=== PATIENT | male | born 1965 | race Caucasian/White ===

== ENCOUNTER 2016-07-02 09:55 | Emergency (ER) | payer MEDICAID ==
--- NOTE | 2016-07-02 09:57 | EDPHY ---
H & P Time Seen by Provider: 07/02/16 09:56 HPI/ROS: CHIEF COMPLAINT: Weak dizzy and shaky HISTORY OF PRESENT ILLNESS: Patient slipped in a laundromat last night. He was picked up by EMS at the [facility] feeling weak and dizzy and shaky and worried he might have CO poisoning. He is a tobacco smoker. patient symptoms are moderate. Not associated with syncope or head injury or chest pain or shortness of breath. Started this morning. No known exposure to carbon monoxide. REVIEW OF SYSTEMS: Eye: no change in vision ENT: no sore throat Cardiac: no chest pain or syncope Pulmonary: no cough or SOB Abdomen: no vomiting, diarrhea, abdominal pain Musculoskeletal: no back pain, chronic neck pain unchanged Skin: no rash Neuro: no headache Constitutional: no fever : no urinary symptoms A comprehensive 10 point review of systems is otherwise negative aside from elements mentioned in the history of present illness. PAST MEDICAL HISTORY: Alcohol use, anxiety Social history: Alcohol and tobacco use General Appearance: Alert and conversant, cooperative. Eyes: No scleral icterus. ENT, Mouth: Normal mucous membranes. No tongue laceration or abrasion. Respiratory: Normal respiratory effort, breath sounds equal, lungs are clear to auscultation. Cardiovascular: Regular rate and rhythm. Gastrointestinal: Abdomen is soft and non tender. Neurological: Alert and oriented x3. Normally conversant. Face symmetric, normal movement and sensation in all extremities. Mildly shaky at rest. Skin: Warm and dry, no rashes. Musculoskeletal: No peripheral edema and no joint swelling. Psychiatric: Not agitated. Emergency Department course/MDM: Patient was hydrated with normal saline. His initial potassium was noted to be low at 2.8 and was given 60 meq orally and 2 g of IV magnesium. 1425: Repeat potassium is normal at 4.1. 1435: Patient re-examined and now is asymptomatic. With recent alcohol ingestion think that alcohol withdrawal is unlikely. He does not have symptoms of acute alcohol withdrawal or delirium tremens now. Constitutional: Initial Vital Signs Temperature (C) 36.3 C 07/02/16 10:11 Heart Rate 105 H 07/02/16 10:11 Respiratory Rate 18 07/02/16 10:11 Blood Pressure 138/87 H 07/02/16 10:11 O2 Sat (%) 92 07/02/16 10:11 O2 Delivery Mode Room Air O2 (L/minute) 2 Allergies/Adverse Reactions: No Known Allergies Allergy (Verified 01/13/15 07:24) Home Medications: Medication Instructions Recorded NK [No Known Home Meds] 01/13/15 Medical Decision Making - Diagnostics EKG Interpretation: 12-lead EKG interpreted by me; official reading is in trace master. My interpretation is sinus rhythm with incomplete right bundle branch block. 2nd EKG was performed for tachycardia.12-lead EKG interpreted by me; official reading is in trace master. My interpretation is sinus rhythm with late anterior RS transition. Differential Diagnosis: Differential considered including but not limited to CO poisoning, seizure, alcohol withdrawal, metabolic abnormality. - Data Points Laboratory Results: Laboratory Results 07/02/16 10:40 07/02/16 13:30 07/02/16 07/02/16 07/02/16 13:30 10:40 10:40 WBC RBC Hgb Hct MCV MCH MCHC RDW Plt Count MPV Neut % (Auto) Lymph % (Auto) Stone % (Auto) Eos % (Auto) Baso % (Auto) Nucleat RBC Rel Count Absolute Neuts (auto) Absolute Lymphs (auto) Absolute Monos (auto) Absolute Eos (auto) Absolute Basos (auto) Absolute Nucleated RBC Immature Gran % Immature Gran # Carboxyhemoglobin 4.9 % H % (0-1.5) Sodium Potassium 4.1 mEq/L mEq/L (3.5-5.2) Chloride Carbon Dioxide Anion Gap BUN Creatinine Estimated GFR Glucose Calcium Troponin I < 0.012 ng/mL ng/mL (0-0.034) Ethyl Alcohol 07/02/16 07/02/16 10:40 10:40 WBC 7.17 10^3/uL 10^3/uL (3.80-9.50) RBC 4.96 10^6/uL 10^6/uL (4.40-6.38) Hgb 17.6 g/dL H g/dL (13.7-17.5) Hct 51.6 % H % (40.0-51.0) MCV 104.0 fL H fL (81.5-99.8) MCH 35.5 pg H pg (27.9-34.1) MCHC 34.1 g/dL g/dL (32.4-36.7) RDW 15.6 % H % (11.5-15.2) Plt Count 120 10^3/uL L 10^3/uL (150-400) MPV 10.2 fL fL (8.7-11.7) Neut % (Auto) 84.8 % H % (39.3-74.2) Lymph % (Auto) 8.1 % L % (15.0-45.0) Stone % (Auto) 5.4 % % (4.5-13.0) Eos % (Auto) 0.0 % L % (0.6-7.6) Baso % (Auto) 1.0 % % (0.3-1.7) Nucleat RBC Rel Count 0.0 % % (0.0-0.2) Absolute Neuts (auto) 6.08 10^3/uL 10^3/uL (1.70-6.50) Absolute Lymphs (auto) 0.58 10^3/uL L 10^3/uL (1.00-3.00) Absolute Monos (auto) 0.39 10^3/uL 10^3/uL (0.30-0.80) Absolute Eos (auto) 0.00 10^3/uL L 10^3/uL (0.03-0.40) Absolute Basos (auto) 0.07 10^3/uL 10^3/uL (0.02-0.10) Absolute Nucleated RBC 0.00 10^3/uL 10^3/uL (0-0.01) Immature Gran % 0.7 % % (0.0-1.1) Immature Gran # 0.05 10^3/uL 10^3/uL (0.00-0.10) Carboxyhemoglobin Sodium 144 mEq/L mEq/L (134-144) Potassium 2.8 mEq/L L mEq/L (3.5-5.2) Chloride 96 mEq/L L mEq/L (97-110) Carbon Dioxide 22 mEq/l mEq/l (22-31) Anion Gap 26 mEq/L H mEq/L (8-16) BUN 7 mg/dL mg/dL (7-23) Creatinine 0.8 mg/dL mg/dL (0.7-1.3) Estimated GFR > 60 Glucose 124 mg/dL H mg/dL (70-100) Calcium 8.4 mg/dL L mg/dL (8.5-10.4) Troponin I Ethyl Alcohol 216 mg/dL H mg/dL (0-10) Medications Given: Discontinued Medications Sodium Chloride (Ns) 1,000 mls @ 0 mls/hr IV ONCE ONE PRN Reason: Wide Open Stop: 07/02/16 10:27 Last Admin: 07/02/16 10:49 Dose: 1,000 mls Magnesium Sulfate (Magnesium Sulf 2 Gm (Premix)) 50 mls @ 50 mls/hr IV EDNOW ONE Stop: 07/02/16 13:00 Last Admin: 07/02/16 12:21 Dose: 50 mls Sodium Chloride (Ns) 1,000 mls @ 0 mls/hr IV ONCE ONE PRN Reason: Wide Open Stop: 07/02/16 12:26 Last Admin: 07/02/16 12:44 Dose: 1,000 mls Potassium Chloride (Klor Packets) 60 meq PO EDNOW ONE Stop: 07/02/16 12:02 Last Admin: 07/02/16 12:21 Dose: 60 meq Departure - Departure Disposition: Home, Routine, Self-Care Clinical Impression: Hypokalemia Condition: Good Instructions: Hypokalemia (ED) Referrals: NONE *PRIMARY CARE P,. [Primary Care Provider] - As per Instructions [facility],. [Clinic] - As per Instructions
[2016-07-02 10:13] VITALS: TEMP 97.3
[2016-07-02] MEDS ORDERED: NS 1,000 ML IV ONE ×2 (10:26→12:25)
[2016-07-02 10:49] LABS: % IMMATURE GRANULYOCYTES 0.7 % (0.0-1.1); ABSOLUTE IMMATURE GRANULOCYTES 0.05 10^3/uL (0.00-0.10); ADD DIFF? NO; ADD MORPH? NO; ADD SCAN? NO; ATYPICAL LYMPHOCYTE FLAG 0 (0-99); FRAGMENT RBC FLAG 0 (0-99); HEMATOCRIT 51.6 % (40.0-51.0); HEMOGLOBIN 17.6 g/dL (13.7-17.5); LEFT SHIFT FLG 0 (0-99); LIPEMIA HEMOLYSIS FLAG 90 (0-99); MEAN CELL HEMOGLOBIN 35.5 pg (27.9-34.1); MEAN CELL HEMOGLOBIN CONCENTR. 34.1 g/dL (32.4-36.7); MEAN PLATELET VOLUME 10.2 fL (8.7-11.7); PLATELET CLUMPS FLAG 10 (0-99); PLATELET COUNT 120 10^3/uL (150-400); RED BLOOD CELL COUNT 4.96 10^6/uL (4.40-6.38); RED CELL DISTRIBUTION WIDTH 15.6 % (11.5-15.2)
--- NOTE | 2016-07-02 11:01 | CPEKG ---
Heart Rate: 87 RR Interval: 690 P-R Interval: 188 QRSD Interval: 108 QT Interval: 392 QTC Interval: 472 P Carey: 74 QRS Carey: 50 T Wave Carey: 65 EKG Severity - ABNORMAL ECG - EKG Impression: SINUS RHYTHM EKG Impression: INCOMPLETE RIGHT BUNDLE BRANCH BLOCK EKG Impression: BORDERLINE R WAVE PROGRESSION, ANTERIOR LEADS Electronically Signed By: Reji Galindo 02-Jul-2016 12:50:52
[2016-07-02 11:19] LABS: ANION GAP 26 mEq/L (8-16); CALCIUM 8.4 mg/dL (8.5-10.4); CARBON DIOXIDE 22 mEq/l (22-31); CHLORIDE 96 mEq/L (97-110); CREATININE 0.8 mg/dL (0.7-1.3); ETHANOL SERUM 216 mg/dL (0-10); GLOMERULAR FILTRATION RATE > 60; GLUCOSE 124 mg/dL (70-100); POTASSIUM 2.8 mEq/L (3.5-5.2); SODIUM 144 mEq/L (134-144)
[2016-07-02] MEDS ORDERED: POTASSIUM CL 20 MEQ PKT PO ONE (12:01)
[2016-07-02] MEDS ORDERED: MAGNESIUM SULF 2 GM/WATER 50 ML IV ONE (12:01)
--- NOTE | 2016-07-02 12:30 | CPEKG ---
Heart Rate: 96 RR Interval: 625 P-R Interval: 172 QRSD Interval: 86 QT Interval: 368 QTC Interval: 465 P [place]: 72 QRS [place]: 26 T Wave [place]: 57 EKG Severity - BORDERLINE ECG - EKG Impression: SINUS RHYTHM EKG Impression: BORDERLINE R WAVE PROGRESSION, ANTERIOR LEADS Electronically Signed By: Reji Galindo 02-Jul-2016 12:50:34
[2016-07-02 14:12] LABS: POTASSIUM 4.1 mEq/L (3.5-5.2)
[2016-07-02 14:24] VITALS: BP 119/87; PULSE 98; RESP 14; O2SAT 92
== END 2016-07-02 14:48 | disposition home or self-care (01) ==
LOC: EDUNIT#
DX: E87.6 Hypokalemia (principal); F17.200 Nicotine dependence, unspecified, uncomplicated
CPT/HCPCS: 96365; G0480

== ENCOUNTER 2017-04-19 08:47 | Inpatient (IN) | payer MEDICAID ==
[2017-04-19] MEDS ORDERED: NS 1,000 ML IV ONE ×2 (09:20→09:40)
--- NOTE | 2017-04-19 09:24 | EDPHY ---
General - History Smoking Status: Heavy smoker Narrative: 0935: Assessed patient and discussed care with JAIMEE Montero. Patient is in alcoholic ketoacidosis with a BGL of 38. Plan for PO and IV fluid administration and food intake and close monitoring of glucose and reassessments. Will recheck chemistries. 1005: 33.7C rectal temp, will admit for hypothermia and alcoholic ketoacidosis. (Jacob Dugan) CHIEF COMPLAINT: Flu-like symptoms HISTORY OF PRESENT ILLNESS: Patient presents by EMS with reports of flu-like symptoms. EMS reports of [employer] [employer] was called as he [place] the side of [place] He does not recall how he got there but also reports heavy alcohol ingestion. He says that he has had body aches, fevers, malaise and chills over the past few days. He feels "I've been sick." Associates with some cough. No neck pain or stiffness. No headache. No sore throat. No urinary complaints. No abdominal pain. No trauma or injury. He has no headache or neck pain at this time. Does admit to heavy alcohol use daily, at least 2 pints of rum. No other associated complaints or modifying factors. REVIEW OF SYSTEMS: Ten systems reviewed and are negative unless otherwise noted in the HPI PCP: [facility] SPECIALISTS: None PAST MEDICAL HISTORY: COPD, alcohol withdrawal seizures, alcoholism PAST SURGICAL HISTORY: Denies any recent surgeries SOCIAL HISTORY: Smoker. Daily alcohol use 2 pt of rum. Denies drug use. Homeless FAMILY HISTORY: Noncontributory EXAMINATION General Appearance: Alert, no distress, unkempt Head: normocephalic, atraumatic Eyes: Pupils equal and round, no conjunctival pallor or injection ENT, Mouth: Mucous membranes dry. Airway is patent. No erythema or edema. Neck: Normal inspection, supple, non-tender Respiratory: Mild rhonchi and crackles. No wheezing. No diminishment. No consolidation. Cardiovascular: Regular rate and rhythm. No murmur. Symmetric radial pulses 2+ . Symmetric DP pulses 2+. Gastrointestinal: Abdomen is soft and nontender. No tympany or distention. Back: non-tender, no bony abnormalities Neurological: GCS 15. Cranial nerves 2-12 grossly intact. A&O, nonfocal, strength symmetric with mild resting tremor. No rigors. Normal mentation Skin: Warm and dry, no rash. No petechiae or purpura Extremities: Nontender, no pedal edema. Symmetric range of motion. Psychiatric: Mood and affect normal DIFFERENTIAL DIAGNOSES: Including but not limited to influenza, dehydration, electrolyte disturbance, hypothermia MDM: 9:15 a.m. Body aches, malaise, possible fevers and alcoholic patient was found sitting on the side of the road in the cold. Unable to get a temperature on the patient but his vital signs are otherwise within normal limits. He is refusing a rectal temperature at this time. Will continue to keep checking his temperature. IV fluid has been ordered. Flu test ordered. Laboratory studies pending. He is awake and alert no acute distress. 9:40 a.m. Notified the patient's initial blood sugar was 38. He has been given multiple sources of sugar by mouth. He remains awake and alert no acute distress. I have also discussed laboratory studies with Dr. Dugan. He does exhibit alcoholic ketoacidosis. Providing IV fluid resuscitation in conjunction with close glucose monitoring. Recheck chemistry after hydration. 9:55 a.m. Chest x-ray is unremarkable. Patient re-evaluated. 10:00 a.m. Patient has finally consented to a rectal temperature. I performed this myself in his core temperature is 33.7. I checked this twice. Dr. Dugan has been notified. At this point the bear hugger as been place. Will proceed with admission for hypothermia and alcoholic ketoacidosis. 10:10 a.m. Case discussed with hospitalist Tiffani Kilpatrick. Patient will be admitted to a step-down unit to Dr. Gibbs for alcoholic ketoacidosis and hypothermia. We are administering thiamine and folate. Were rechecking his blood sugar monitoring closely. Bear hugger is in place and warm IV fluids infusing. He continues to mentate appropriately and is awake and alert. He does have some rigors at this time nor monitoring closely. He is admitted in stable condition. We have initiated the ED alcohol withdrawal CIWA and Ativan protocol. SUPERVISION: Patient was evaluated and examined in conjunction with my secondary supervising physician as documented. We have both examined the patient. (Brian Montero) - Diagnostics Imaging Results: Imaging Impressions Chest X-Ray 04/19/17 09:20 Impression: No pneumonia. - Objective Vital Signs: Initial Vital Signs Heart Rate 85 04/19/17 08:47 Respiratory Rate 16 04/19/17 08:47 Blood Pressure 105/70 04/19/17 08:47 O2 Sat (%) 92 04/19/17 08:47 O2 Delivery Mode Nasal Cannula O2 (L/minute) 2 Allergies/Adverse Reactions: No Known Allergies Allergy (Verified 01/13/15 07:24) Home Medications: Medication Instructions Recorded Albuterol [Proventil Inhaler HFA 1 - 2 puffs IH Q4H PRN 04/19/17 (*)] Fluticasone/Salmeter 250/50Mcg 1 puffs IH BID 04/19/17 [Advair 250/50 (*)] Laboratory Results: Laboratory Results 04/19/17 08:53 04/19/17 08:53 04/19/17 04/19/17 04/19/17 10:00 08:53 08:53 WBC 7.93 10^3/uL 10^3/uL (3.80-9.50) RBC 5.34 10^6/uL 10^6/uL (4.40-6.38) Hgb 19.5 g/dL H g/dL (13.7-17.5) Hct 56.7 % H % (40.0-51.0) MCV 106.2 fL H fL (81.5-99.8) MCH 36.5 pg H pg (27.9-34.1) MCHC 34.4 g/dL g/dL (32.4-36.7) RDW 13.5 % % (11.5-15.2) Plt Count 462 10^3/uL H 10^3/uL (150-400) MPV 8.7 fL fL (8.7-11.7) Neut % (Auto) 62.7 % % (39.3-74.2) Lymph % (Auto) 29.1 % % (15.0-45.0) [place] % (Auto) 5.4 % % (4.5-13.0) Eos % (Auto) 0.1 % L % (0.6-7.6) Baso % (Auto) 1.8 % H % (0.3-1.7) Nucleat RBC Rel Count 0.0 % % (0.0-0.2) Absolute Neuts (auto) 4.97 10^3/uL 10^3/uL (1.70-6.50) Absolute Lymphs (auto) 2.31 10^3/uL 10^3/uL (1.00-3.00) Absolute Monos (auto) 0.43 10^3/uL 10^3/uL (0.30-0.80) Absolute Eos (auto) 0.01 10^3/uL L 10^3/uL (0.03-0.40) Absolute Basos (auto) 0.14 10^3/uL H 10^3/uL (0.02-0.10) Absolute Nucleated RBC 0.00 10^3/uL 10^3/uL (0-0.01) Immature Gran % 0.9 % % (0.0-1.1) Immature Gran # 0.07 10^3/uL 10^3/uL (0.00-0.10) Sodium Potassium Chloride Carbon Dioxide Anion Gap BUN Creatinine Estimated GFR Glucose POC Glucose 58 mg/dL L mg/dL (70-100) Calcium Total Bilirubin Conjugated Bilirubin Unconjugated Bilirubin AST ALT Alkaline Phosphatase Total Protein Albumin Lipase Nasal Influenza A PCR NEGATIVE FOR FLU A (NEGATIVE) Nasal Influenza B PCR NEGATIVE FOR FLU B (NEGATIVE) Ethyl Alcohol 04/19/17 08:53 WBC RBC Hgb Hct MCV MCH MCHC RDW Plt Count MPV Neut % (Auto) Lymph % (Auto) [place] % (Auto) Eos % (Auto) Baso % (Auto) Nucleat RBC Rel Count Absolute Neuts (auto) Absolute Lymphs (auto) Absolute Monos (auto) Absolute Eos (auto) Absolute Basos (auto) Absolute Nucleated RBC Immature Gran % Immature Gran # Sodium 147 mEq/L H mEq/L (135-145) Potassium 4.7 mEq/L mEq/L (3.5-5.2) Chloride 97 mEq/L mEq/L (97-110) Carbon Dioxide 26 mEq/l mEq/l (22-31) Anion Gap 24 mEq/L H mEq/L (8-16) BUN 7 mg/dL mg/dL (7-23) Creatinine 0.7 mg/dL mg/dL (0.7-1.3) Estimated GFR > 60 Glucose 38 mg/dL L* mg/dL (70-100) POC Glucose Calcium 9.2 mg/dL mg/dL (8.5-10.4) Total Bilirubin 1.4 mg/dL mg/dL (0.1-1.4) Conjugated Bilirubin 1.0 mg/dL H mg/dL (0.0-0.5) Unconjugated Bilirubin 0.4 mg/dL mg/dL (0.0-1.1) AST 127 IU/L H IU/L (17-59) ALT 62 IU/L IU/L (21-72) Alkaline Phosphatase 234 IU/L H IU/L (38-126) Total Protein 8.3 g/dL H g/dL (6.3-8.2) Albumin 4.4 g/dL g/dL (3.5-5.0) Lipase 89 IU/L IU/L (23-300) Nasal Influenza A PCR Nasal Influenza B PCR Ethyl Alcohol 262 mg/dL H mg/dL (0-10) Medications Given: Dextrose/Sodium Chloride (D5w 1/2 Ns) 1,000 mls @ 75 mls/hr IV CONT EDINSON Stop: 10/16/17 12:14 Last Admin: 04/19/17 12:25 Dose: 1,000 mls Thiamine HCl 500 mg/ Sodium (Chloride) 255 mls @ 255 mls/hr IV DAILY EDINSON Stop: 04/20/17 09:59 Last Admin: 04/19/17 12:24 Dose: 255 mls Magnesium Sulfate (Magnesium Sulf 2 Gm (Premix)) 50 mls @ 50 mls/hr IV ONCE ONE Stop: 04/19/17 16:36 Last Admin: 04/19/17 15:42 Dose: 50 mls Discontinued Medications Folic Acid (Folic Acid) 1 mg PO EDNOW ONE Stop: 04/19/17 10:10 Last Admin: 04/19/17 10:22 Dose: 1 mg Sodium Chloride (Ns) 1,000 mls @ 0 mls/hr IV EDNOW ONE; Wide Open PRN Reason: Protocol Stop: 04/19/17 09:21 Last Admin: 04/19/17 09:25 Dose: 1,000 mls Sodium Chloride (Ns) 1,000 mls @ 0 mls/hr IV EDNOW ONE; Wide Open PRN Reason: Protocol Stop: 04/19/17 09:41 Last Admin: 04/19/17 09:46 Dose: 1,000 mls Lorazepam (Ativan Injection) 0 mg IVP Q1H PRN; Protocol PRN Reason: Alcohol Withdrawal w/IV access Stop: 04/19/17 22:31 Last Admin: 04/19/17 10:54 Dose: 2 mg Thiamine HCl (Vitamin B-1) 100 mg PO EDNOW ONE Stop: 04/19/17 10:10 Last Admin: 04/19/17 10:22 Dose: 100 mg Point of Care Test Results: 04/19/17 10:00 POC Glucose 58 L Departure - Departure Disposition: [facility] Inpatient Acute Clinical Impression: Alcoholic ketoacidosis Hypothermia Qualifiers: Encounter type: initial encounter Qualified Code(s): T68.XXXA - Hypothermia, initial encounter Condition: Good
[2017-04-19 09:27] LABS: PLATELET COUNT 462 10^3/uL (150-400)
[2017-04-19] MEDS ORDERED: THIAMINE HCL 100 MG TAB PO ONE (10:09)
[2017-04-19] MEDS ORDERED: FOLIC ACID 1 MG TAB PO ONE (10:09)
[2017-04-19] MEDS ORDERED: LORazepam 1 MG TAB PO PRN ×2 (10:31→12:04)
[2017-04-19] MEDS ORDERED: LORazepam 2 MG/ML INJ IVP PRN (10:31)
[2017-04-19] MEDS ORDERED: LORazepam 2 MG/ML INJ ONE (10:53)
--- NOTE | 2017-04-19 11:03 | ASMTLACE ---
MARGARETTE Acuity / Level of Answers: Yes Care: Did the patient have an inpatient admission? Comorbidities - select Answers: Chronic pulmonary disease all that apply Social determinants Answers: History of substance abuse (ETOH, street drugs, prescription drugs, etc.) Homelessness (street, residential) Score: 11 Date Signed: 04/19/2017 11:02 AM Electronically Signed By:Pamela Guthrie RN
[2017-04-19] MEDS ORDERED: ACETAMINOPHEN 325 MG TAB PO PRN (12:02)
[2017-04-19] MEDS: THIAMINE HCL 500 MG in NS 250 ML IV SCH (12:24)
[2017-04-19] MEDS: D5W 1/2 NS 1,000 ML IV SCH (12:25)
--- NOTE | 2017-04-19 12:39 | CPEKG ---
Heart Rate: 102 RR Interval: 588 P-R Interval: 152 QRSD Interval: 80 QT Interval: 372 QTC Interval: 485 P [place]: 78 QRS [place]: 35 T Wave [place]: 72 EKG Severity - BORDERLINE ECG - EKG Impression: SINUS TACHYCARDIA EKG Impression: BORDERLINE R WAVE PROGRESSION, ANTERIOR LEADS EKG Impression: BORDERLINE PROLONGED QT INTERVAL Electronically Signed By: Fly Polanco 20-Apr-2017 08:26:34
[2017-04-19] MEDS ORDERED: PROTOCOL MAGNESIUM 1 DOSE IV PRN (14:43)
[2017-04-19] MEDS ORDERED: PROTOCOL K PHOSPHATE 1 DOSE IV PRN (14:43)
[2017-04-19] MEDS ORDERED: PROTOCOL POTASSIUM 1 DOSE MISC PRN (14:43)
[2017-04-19 15:18] LABS: INR 1.03 (0.83-1.16); PROTIME(PATIENT) 13.7 SEC (12.0-15.0)
[2017-04-19] MEDS ORDERED: MAGNESIUM SULF 2 GM/WATER 50 ML IV ONE (15:37)
--- NOTE | 2017-04-19 16:02 | GCON ---
[f rep st] CONSULTATION PULMONARY CRITICAL CARE CONSULTATION DATE OF CONSULTATION: 04/19/2017 REASON FOR CONSULTATION: Alcohol withdrawal. HISTORY: The patient is a homeless chronic alcoholic. He [place] and brought to the emergency department. On admission, he said he felt sick and reported having had fevers, chills, and aches over the last several days associated with a dry cough. He has continued to drink heavily, 2 pints of rum per day. He also smokes a pack of cigarettes per day. In the emergency department, he was found to have a blood alcohol level of 262. Glucose was l ow at 38. He was given multiple sugar-containing items orally. He was given intravenous fluids. Ch est x-ray was obtained, which showed no evidence of pneumonia. He was not febrile. He did have a po sitive anion gap, which was felt to be secondary to alcoholic ketoacidosis; however, ketones were not obtained. He was not started on antibiotics. He was given thiamin and placed on the CIWA protocol. Subsequently, Precedex was started. /[id number]/MODL
--- NOTE | 2017-04-19 16:24 | PDGENHP ---
History and Physical History and Physical: CC: Weakness and flu-like symptoms HISTORY: This patient was brought in by [employer] police after being found asleep in poorly responsive in front of a bus stop on the sidewalk. On arrival here the patient was initially awake and able to give some history and did complain of some flu-like symptoms but the history is quite limited. He had symptoms suggestive of significant alcohol withdrawal was given 2 mg of Ativan in the emergency room. At the time I am seeing the patient is quite sedated and barely arousable from the Ativan. I was unable to get any other history in terms of any acute illness or symptoms or review of systems. In the ER the patient was noted to be hypothermic and was treated with a Bear Hugger warming system with some good improvement in his core temperature. ROS: A comprehensive 10 system review is attempted and revealed no other significant findings but is severely limited by the patient's inability to participate PAST MEDICAL HISTORY: Based on the fact that we know the patient has some inhaled bronchodilators and is a smoker he appears to have a history of COPD Known tobacco and alcohol abuse Homelessness FAMILY MEDICAL HISTORY: Unknown, no information available SOCIAL HISTORY: Homeless, currently reportedly using daily alcohol and tobacco but no street drugs No other information available MEDICATIONS: The patients list has been reconciled by our clinical pharmacist in the EMR. I have reviewed the list and ordered appropriate medicines. 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 Aide: Sinus Examination: General: Quite sedated, snoring, barely arousable for a few seconds, does not interact verbally with me at this time or follow commands but does make eye contact before falling back to sleep Skin: warm, dry, good color overall; the left hand is quite erythematous on the dorsal aspect from the wrist down to the dorsal part of the fingers without heat swelling abscess or open wounds, this is suggestive in the circumstances of probable thermal injury without any blistering or signs of necrosis or desquamation at this time; there is no sign of thermal injury or other skin illness and other parts of his body at this time HEENT: normal with limited exam due to lack of participation Neck: no mass or jvd Resps: relaxed Lungs: Snoring loudly but otherwise clear breath sounds Heart: regular, no murmur Abdomen: soft, nondistended, +BS, no mass Lower Extremities: no edema, warm; No Bleeding or bruising Neurologic: normal speech/language, 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, no focal weakness IV site: looks normal LABORATORY DATA: Metabolic acidosis with a elevated anion gap and ketones present which in the setting of hypoglycemia and a significantly elevated alcohol level Otherwise chemistries fairly unremarkable On CBC he has remarkable macrocytosis and erythrocytosis which have been seen on previous blood work on prior ER visits here Influenza tests negative for a and B by PCR RADIOLOGY STUDIES: Chest x-ray single view was done in the ER today, I looked at the images which in my reading show evidence of hyperexpansion and probably some scarring at the right base but no evidence of acute infection or heart failure 12 LEAD EK lead EKG done in the ER, I reviewed the tracing which shows a sinus tachycardia 102 beats per minute with no other concerning abnormalities ASSESSMENT: -acute alcohol withdrawal, started on benzodiazepine here in the ER; patient, currently sedated from Ativan given in the ER with some tachycardia but no other vital sign changes; -the degree of alcohol withdrawal that he showing here with an alcohol level as high as his presenting level in the ER suggests impending severe withdrawal is quite likely -hypothermia from exposure, currently in significantly improved after warming therapy in the ER -mild thermal injury to the skin on the dorsum of his left hand and fingers without current evidence of any desquamation blistering or necrosis -alcoholic ketoacidosis, mild -acute alcohol intoxication, alcoholism, reported history of alcohol withdrawal seizures; at high risk here for seizures and other complications of withdrawal as well as nutritional complications -COPD with ongoing tobacco abuse, no evidence of acute decompensation at this time -homelessness PLANS: -inpatient admission to ICU -WA protocol with treatment protocols ordered; included will be some scheduled benzodiazepine doses to for seizure prevention -thiamin replacement has been started -follow his temperatures closely and make sure his hypothermia is adequately treated -for monitor and manage electrolyte abnormalities closely -dextrose infusion has been instituted and ongoing for his alcoholic ketoacidosis will follow his acid-base balance and electrolytes closely for this -will monitor the skin changes on his left hand very closely, consider consultation of wound care and surgery if any significant worsening -continue bronchodilators -once he is awake and cogent enough will engage in alcohol counseling and determine his willingness to engage in that further plans accordingly -social work consult I have reviewed the patient's case in detail with Dr. Irwin Alston I have reviewed the patient's past medical records as part of this assessment, including previous ER visit records and laboratory data
--- NOTE | 2017-04-19 17:04 | PDMN ---
Medical Necessity Medical necessity: C/M review: est. > 2 MN LOS for erval and [place] of acute alcohol withdrawal, hypothermia from exposure, mild alcoholic ketoacidosis, acute alcohol intoxication requiring IV Ativan in ED, IV Thiamine, planned Case Management consult, ongoing IV fluids, bronchodilators, cardiac monitoring, pulse oximetry, supplemental O2, CIWA protocol, vital sign and skin changed left hand close monitoring, seizure precautions, comorbid patient brought into ED by [employer] police after found asleep in poorly responsive condition in front of a bus stop on the sidewalk,. alcohol and tobacco abuse, COPD, history of alcohol withdrawal seizures, homelessness per H/P.
[2017-04-19] MEDS: LORazepam 2 MG/ML INJ IVP PRN (18:20)
[2017-04-19] MEDS: ALBUTEROL 60 PUFFS/8 GM MDI IH PRN (21:15)
[2017-04-19] MEDS: FLUTICASONE/SALMETER 250/50MCG DISKUS IH SCH (21:16)
--- NOTE | 2017-04-19 22:57 | GCON ---
[f rep st] CONSULTATION DATE OF CONSULTATION: 04/19/2017 ADDENDUM: HISTORY OF PRESENT ILLNESS: The patient does have a history of lung disease secondary to his smoking . List of medications includes albuterol and Advair. He is apparently followed at the [facility]. 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 FAMILY HISTORY: Noncontributory/negative. REVIEW OF SYSTEMS: Difficult to obtain at this time. The patient denies heart disease. He says he is continuing to have symptoms of alcohol withdrawal and is uncomfortable and does not want to be int erviewed. On review of previous records, he has been to the emergency room for various reasons over the past 6 or 7 years. These have included alcohol withdrawal. He has not been hospitalized. PHYSICAL EXAMINATION: GENERAL: Reveals a gentleman who is tremulous. Face and hands are erythemato us and dry. He is arousable and responsive. VITAL SIGNS: Blood pressure is 110/65, heart rate 100 with sinus rhythm on the monitor. He is afebrile. Respiratory rate is 16. He is on 4 L of oxygen w ith saturations of 94%. HEENT: Remarkable for dry mucous membranes. There is no scleral icterus. There is no lymphadenopathy or thyromegaly, no jugular venous distention. CHEST: Clear anteriorly. Breath sounds are diminished at the bases. There are few nonspecific bibasilar rales. With coughin g there are no rhonchi, only mild central congestion. With forced exhalation there are some scattere d wheezes. He is not tight. HEART: The heart is borderline tachycardic. There is a soft systolic murmur, no gallops. ABDOMEN: Soft and nontender. The liver appears to be enlarged with mild tender ness. EXTREMITIES: Remarkable for multiple tattoos. The hands and feet are somewhat erythematous. SKIN: Dry. There are no rashes, no active lesions or evidence of cellulitis. NEUROLOGIC: Nonfoca l. He is oriented x2. DATA BASE: Chest x-ray on admission was unremarkable for infiltrates or evidence of pneumonia. The lungs are not particularly hyperinflated. Some old rib fractures are noted. Cardiac silhouette is n ormal. LABORATORY DATA: White blood cell count 7900, hematocrit on admission 56.7, MCV 106, platelets 462,0 00. Sodium was 147, potassium 4.7, CO2 26, and anion gap 24. BUN is 7 with a creatinine of 0.7. In itial glucose was 38, came up to 99 after sugar containing oral intake. Total bilirubin is 1.4, AST elevated at 127, ALT 62. Total protein. 8.4. Lipase was normal. Influenza A/B was negative by PCR. Blood alcohol on admission was 262. ASSESSMENT: 1. Alcohol withdrawal secondary to acute on chronic alcohol abuse: He is on the CIWA protocol, on P recedex as well as scheduled Ativan. He is getting thiamine and multivitamins. 2. Tobacco abuse, likely chronic obstructive pulmonary disease: There is no evidence of pneumonia o r active bronchitis at this time. He does not seem to have a viral illness. Influenza was negative. His symptoms of feeling sick on admission may have been related more to chronic alcoholism as oppos ed to acute illness? 3. Metabolic: Mild anion gap presumably secondary to alcoholic ketoacidosis. This likely will impr ove with intravenous fluids. He does have evidence of volume depletion on admission clinically as we ll as based on his high hematocrit. 4. Prophylaxis: He is on enoxaparin. Oral famotidine will be added. 5. Polycythemia: Hematocrit is borderline high likely secondary to volume depletion. Smoking may b e playing a role as well. This will be followed. PLAN AND RECOMMENDATIONS: The patient will be kept in intensive care unit on the CIWA protocol. Pre cedex will be continued along with scheduled Ativan. Electrolytes and CBC will all be followed. He will be placed on electrolyte protocols. Intravenous fluids will be continued. Further plans and recommendations will be made based on his progress over the next 12-24 hours. /[id number]/MODL
[2017-04-20] MEDS: LORazepam 2 MG/ML INJ IVP PRN ×3 (01:28→22:13)
[2017-04-20 05:37] LABS: PLATELET COUNT 290 10^3/uL (150-400)
[2017-04-20] MEDS: FLUTICASONE/SALMETER 250/50MCG DISKUS IH SCH ×2 (08:46→19:54)
[2017-04-20] MEDS: ALBUTEROL 60 PUFFS/8 GM MDI IH PRN (08:47)
[2017-04-20] MEDS ORDERED: THIAMINE HCL 500 MG in NS 250 ML IV SCH (09:00)
[2017-04-20] MEDS ORDERED: FOLIC ACID 1 MG TAB PO SCH (09:00)
[2017-04-20] MEDS: THIAMINE HCL 500 MG in NS 250 ML IV SCH (09:31)
[2017-04-20] MEDS: ENOXAPARIN 40 MG/0.4 ML SYR SC SCH (09:31)
[2017-04-20] MEDS: MULTIVITAMINS 1 EACH TAB PO SCH (09:31)
--- NOTE | 2017-04-20 09:37 | HOSPPROG ---
Hospitalist Progress Note Assessment/Plan: DIAGNOSES: -acute alcohol withdrawal, started on benzodiazepine here in the ER; patient, currently sedated from Ativan given in the ER with some tachycardia but no other vital sign changes; -the degree of alcohol withdrawal that he showing here with an alcohol level as high as his presenting level in the ER suggests impending severe withdrawal is quite likely -hypothermia from exposure, currently in significantly improved after warming therapy in the ER -mild thermal injury to the skin on the dorsum of his left hand and fingers without current evidence of any desquamation blistering or necrosis -alcoholic ketoacidosis, mild -acute alcohol intoxication, alcoholism, reported history of alcohol withdrawal seizures; at high risk here for seizures and other complications of withdrawal as well as nutritional complications -COPD with ongoing tobacco abuse, no evidence of acute decompensation at this time -homelessness I had a long discussion with the patient about all the above today as well as the risks for loss of limb and loss of life related to this. Talked about his drinking and at this point he does not feel it will be possible for him to stop drinking nor does he feel like he wants to engage in that now. We did review that he will need to trying keep himself former, and to keep himself well hydrated and get enough calories to avoid alcohol ketoacidosis issues in the future. He understands this and will try an make changes if he can. We talked about the importance of trying to get him into the warming shelters during the winter months oral spends his [place] in a warmer climate. At this time will need to start giving him alcohol as he is not going to quit drinking. Greater than 25 min spent in this particular discussion with him today and with long term care social worker at the bedside as well. PLANS: -begin alcohol on a scheduled basis at this time here -patient will need at least another day here in the hospital for further recovery -continue IV hydration at this point -physical occupational therapy -contrasts for to med surge at this time -continue DVT prophylaxis, thiamin replacement, monitor electrolytes -will begin to add hydrating lotions to his hand on the left at this time SUBJECTIVE: Feels weak and tired yet, somewhat shaky like he is beginning to start withdrawal Does not yet feel anxious or confused No pain in left hand OBJECTIVE Vitals reviewed: Stable temperatures vital signs otherwise Oncology Social Work, my review: Sinus rhythm Exam: alert oriented not really anxious she had at this time, does have a very mild tremor skin warm dry color ok; the erythema on his left hand and fingers has now resolved but he has marked good drying and cracking of the skin there, nothing that looks like it will blister or necrosis but he will peel the superficial skin diffusely on the hand and fingers resps not labored lungs clear BSs heart regular abd soft nondistended nontender, bowel sounds present limbs warm, no edema iv site ok Laboratory data: His acidosis has resolved Mild elevation of liver enzymes and bilirubin as expected with alcohol Erythrocytosis has resolved with hydration, does have persisting macrocytosis Objective: Vital Signs Temp Pulse Resp BP Pulse Ox 36.6 C 94 18 133/83 H 92 04/20/17 07:38 04/20/17 08:30 04/20/17 08:30 04/20/17 07:38 04/20/17 08:30 Laboratory Results 04/20/17 05:25 04/20/17 05:25 04/19/17 04/20/17 04/21/17 06:59 06:59 06:59 Intake Total 4181 Output Total 1050 900 Balance 3131 -900 PT 13.7 SEC (12.0-15.0) 04/19/17 14:55 INR 1.03 (0.83-1.16) 04/19/17 14:55 - Time Spent With Patient Time Spent with Patient: greater than 35 minutes Time Spent with Patient: Greater than 35 minutes spent on this patients care, greater than 50% of time spent counseling, educating, and coordinating care regarding the above mentioned plan. ICD10 Worksheet Patient Problems: Problems Problem Status Onset Alcoholic ketoacidosis Acute Hypothermia Acute
[2017-04-20] MEDS ORDERED: FLU VACC QS 2017-18 (3YR+)/PF 0.5 ML SYR (FLUARIX QUAD) IM ONE (09:58)
[2017-04-20] MEDS ORDERED: PNEUMOCOCCAL 0.5ML VACCINE VIAL IM ONE (09:58)
[2017-04-20] MEDS ORDERED: MAGNESIUM SULF 1 GM/DEXTROSE 100 ML IV ONE (10:09)
[2017-04-20] MEDS: VODKA 50 ML BOTTLE PO SCH ×3 (11:06→22:11)
--- NOTE | 2017-04-20 11:52 | PDINTPN ---
Director Of Instruction Progress Note Assessment/Plan: Assessment: Alcohol withdrawal. On CIWA - score approximately 14. No intention of quitting. Vodka to be given. He will remain on as needed benzodiazepines. Continue thiamin. History of tobacco abuse, ongoing. Likely COPD. On bronchodilators. Oxygen requirements remain high: On 6 L. For repeat x-ray today. Metabolic: On replacement protocols. Prophylaxis: On enoxaparin. No GI prophylaxis indicated, eating. Disposition: He is homeless. Plan: Continue CIWA. Add vodka. Follow laboratory. Recheck chest x-ray today. Change p.r.n. albuterol to scheduled duo nebs. Continue Advair. Consider a brief steroid trial. Can transfer to a medical-surgical bed. 25 min of critical care time spent directly with the patient. Discussed with hospitalist and the ICU multi disciplinary team. Subjective: Feels better overall. Still tremulous. Feels like he is continuing to withdraw. Admits he has no intention on quitting alcohol at this time. He does continue to feel some shortness of breath, pulmonary congestion. Objective: Vital Signs Temp Pulse Resp BP Pulse Ox 36.6 C 102 H 21 H 127/87 H 92 04/20/17 07:38 04/20/17 10:00 04/20/17 10:00 04/20/17 10:00 04/20/17 10:00 Laboratory Results 04/20/17 05:25 04/20/17 05:25 04/19/17 04/20/17 04/21/17 05:59 05:59 05:59 Intake Total 4181 Output Total 1050 1300 Balance 3131 -1300 PT 13.7 SEC (12.0-15.0) 04/19/17 14:55 INR 1.03 (0.83-1.16) 04/19/17 14:55 Laboratory Tests 04/20/17 05:25 Calcium 7.3 L Phosphorus 2.4 L Magnesium 1.8 Total Bilirubin 1.9 H AST 79 H ALT 45 Albumin 2.8 L D CXR: Pending. Physical Exam - Physical Exam General Appearance: alert, no apparent distress, other (Tremulous) EENT: PERRL/EOMI, other (Nasal cannula in place at 6 L: Saturations 92%.), No scleral icterus (R), No scleral icterus (L) Neck: normal inspection (No JVD), No lymphadenopathy (R), No lymphadenopathy (L) Respiratory: lungs clear (Anteriorly), decreased breath sounds (At the bases), rales (Few nonspecific rales at the bases), wheezing (Minimal expiratory wheezing, probably secondary to mucus as opposed to bronchospasm.), No rhonchi ( Mild central congestion with cough) Cardiac/Chest: regular rate, rhythm (Tachycardic at times.) Abdomen: normal bowel sounds, non-tender, soft Male Genitalia: other (Using urinal, good urine output.) Skin: normal color, warm/dry, other (Skin quite dry, especially over exposed areas: Hands, face, etc) Extremities: No pedal edema Neuro/Psych: no motor/sensory deficits, oriented x 3, cognition abnormalities, other (Tremor present) ICD10 Worksheet Patient Problems: Problems Problem Status Onset Alcoholic ketoacidosis Acute Hypothermia Acute
[2017-04-20] MEDS: IPRATROPIUM/ALBUTEROL 3 ML DEYVIAL IH SCH ×3 (12:18→19:50)
--- NOTE | 2017-04-20 15:24 | ASMTCMCOM ---
CM Note CM Note Notes: Homeless pt w hypothermia and alcohol ketoacidosis brought in by PD. Pt expresses no interest in quitting alcohol; will get alcohol in hospital. No therapies ordered at this time. CIWA 16 so CM does not meet w pt today for resources. CM to follow. Date Signed: 04/20/2017 03:23 PM Electronically Signed By:ISABEL Irvin
[2017-04-20] MEDS: D5W 1/2 NS 1,000 ML IV SCH (15:59)
[2017-04-21] MEDS: LORazepam 2 MG/ML INJ IVP PRN (01:24)
[2017-04-21] MEDS: D5W 1/2 NS 1,000 ML IV SCH (04:18)
[2017-04-21] MEDS: IPRATROPIUM/ALBUTEROL 3 ML DEYVIAL IH SCH (05:43)
[2017-04-21] MEDS: FLUTICASONE/SALMETER 250/50MCG DISKUS IH SCH (05:49)
[2017-04-21] MEDS ORDERED: MAGNESIUM SULF 1 GM/DEXTROSE 100 ML IV ONE (06:13)
[2017-04-21 07:55] VITALS: BP 125/83; PULSE 106; RESP 22; TEMP 99.1; O2SAT 92
[2017-04-21] MEDS: MULTIVITAMINS 1 EACH TAB PO SCH (08:05)
[2017-04-21] MEDS: VODKA 50 ML BOTTLE PO SCH (08:06)
[2017-04-21] MEDS: ENOXAPARIN 40 MG/0.4 ML SYR SC SCH (08:06)
[2017-04-21] MEDS ORDERED: THIAMINE HCL 100 MG TAB PO SCH (09:00)
--- NOTE | 2017-04-21 11:28 | PDDCSUM ---
Discharge Summary Discharge Summary: DISCHARGE DIAGNOSES: -acute alcoholic ketoacidosis -acute alcohol withdrawal -mild frostbite injury to left hand, resolved nicely -hypothermia from exposure -ongoing chronic alcoholism, unwilling to engage in quitting alcohol at this time -suspected nutritional deficiencies including thiamin -homeless this CONSULTANTS: Dr. Irwin Alston of Critical Care Medicine [facility] COURSE SUMMARY: This patient who is an alcoholic and homeless, became severely weak and and laid down on the sidewalk to take a nap and was found later by passerby who called police as the patient would not get up or rales. On arrival here he was hypothermic with a temperature 33 degrees, and had some mild thermal injury to the dorsum of his left hand with erythema but with no necrosis or blistering. He had evidence of alcoholic ketoacidosis and was beginning to have some alcohol withdrawal despite an alcohol level of 270. The patient was admitted the hospital and treated for his alcoholic ketoacidosis and hypoglycemia with dextrose infusion and responded quite well to this. These abnormalities resolved promptly overnight. As he was unwilling to look at quitting drinking we did continue to give him some significant alcohol in the way of a total of 6 oz of vodka daily. In addition he did receive some Ativan as he had some mild alcohol withdrawal but this was actually quite minor and he did very well with this. He was given thiamin replacement therapy. There were no other abnormal findings or complications. The patient desired to leave the hospital and was ambulating without evidence of gait instability and was eating well. Was felt that he was safe to discharge. The patient was counseled on the need to keep faculty support coordinator to try and avoid hypothermia and thermal injury and that his left hand will now be more susceptible to thermal injury. Her suggested that he try and stay in a homeless residential during the cold months, however he says that he has both a friend and a girlfriend whom he can stay with. In addition as the patient presented here with hypothermia and with alcoholic ketoacidosis, I reviewed with him the critical for him to keep well hydrated and keep enough calories and feel in his body to prevent these issues and that his alcohol will interfere with that. He understands that it is recommended that he try and decrease the amount of alcohol he takes an increase the calories and other fluids he takes in daily. PENDING TEST RESULTS: None MEDICATION CHANGES: None [facility] Greater than 35 minutes bedside and care coordination time today
--- NOTE | 2017-04-21 14:38 | ASDISCHSUM ---
Discharge Information Plan Status:Homeless/Fpc Medically Cleared to Leave:04/20/2017 Discharge Date:04/21/2017 11:10 AM CM D/C Disposition:Home, Routine, Self-Care ADT D/C Disposition:Home, Routine, Self-Care Projected Discharge Date:04/21/2017 12:00 AM Transportation at D/C:Bus Ticket Discharge Delay Reason: Follow-Up Date:04/21/2017 12:00 AM Discharge Slot:1 - 8:01 am - 12:00 noon Final Diagnosis:Hypothermia and Alcoholic ketoacidosis Placement Information Patient Contact Information Contact Name:PERPTJAKEE Relationship: Address: Home Phone: Work Phone: City: Alternate Phone: State/[place] Code: Email: Financial Information Financial Class:Medicaid Primary Plan Desc:[employer] [place] Primary Plan Number:[id number] Secondary Plan Desc: Secondary Plan Number: Assessment Information LACE LACE Acuity / Level of Answers: Yes Care: Did the patient have an inpatient admission? Comorbidities - select Answers: Chronic pulmonary disease all that apply Social determinants Answers: History of substance abuse (ETOH, street drugs, prescription drugs, etc.) Homelessness (street, snf) Score: 11 Date Signed: 04/19/2017 11:02 AM Electronically Signed By:Pamela Guthrie RN [facility] CM Progress Note CM Note CM Note Notes: Homeless pt w hypothermia and alcohol ketoacidosis brought in by PD. Pt expresses no interest in quitting alcohol; will get alcohol in hospital. No therapies ordered at this time. CIWA 16 so CM does not meet w pt today for resources. CM to follow. Date Signed: 04/20/2017 03:23 PM Electronically Signed By:ISABEL Irvin Case Management Discharge Plan Note Case Management Discharge Discharge Order Complete? Answers: Yes Patient to Obtain Answers: Independently Medications Transportation Arranged Answers: Bus Tokens Discharge Comments Notes: CM met with patient prior to discharge. Given bus pass, states he has a couple of friends he could be staying with. Patient was given [facility] information. Patient states he is followed at [facility]. No further Case Managment needs identified at this time. CM Discharge plan: D/C with bus pass independently. Date Signed: 04/21/2017 02:32 PM Electronically Signed By:Abena Chen Intervention Information Intervention Type:Bus Pass Date of Service:04/21/2017 11:31 AM Patient Type:Inpatient Staff Member:Abena Chen Hours: Discipline: Severity: Comment:Given to patient prior to discharge.
[2017-04-22] MEDS ORDERED: THIAMINE HCL 100 MG TAB PO SCH ×2 (09:00→12:04)
== END 2017-04-21 11:10 | disposition home or self-care (01) | DRG 897 ==
LOC: EDUNIT# → F2N 11:37
PROVIDERS: ADMIT Family Medicine; ATTEND Internal Medicine
PROC: HZ2ZZZZ Detoxification Services for Substance Abuse Treatment (ICD-10-PCS; principal; 2017-04-19)
DX: F10.230 Alcohol dependence with withdrawal, uncomplicated (principal); F10.129 Alcohol abuse with intoxication, unspecified; E87.2 Acidosis; Y90.8 Blood alcohol level of 240 mg/100 ml or more; T68.XXXA Hypothermia, initial encounter; E16.2 Hypoglycemia, unspecified; E86.9 Volume depletion, unspecified; J44.9 Chronic obstructive pulmonary disease, unspecified; F17.200 Nicotine dependence, unspecified, uncomplicated; X31.XXXA Exposure to excessive natural cold, initial encounter; Y99.8 Other external cause status; Z59.0 Homelessness; Z23 Encounter for immunization
CPT/HCPCS: 96374; G0008; G0009; G0480; J1650; J2060; J3411; J3475

== ENCOUNTER 2017-06-19 19:20 | Inpatient (IN) | payer MEDICAID ==
[2017-06-19] MEDS ORDERED: LORazepam 2 MG/ML INJ ONE (19:37)
[2017-06-19] MEDS ORDERED: NS 1,000 ML IV ONE ×2 (19:40)
[2017-06-19] MEDS ORDERED: LORazepam 2 MG/ML INJ IVP ONE (19:40)
[2017-06-19] MEDS ORDERED: OFLOXACIN 0.3% 5ML OPHT DROPS EACHEYE ONE (19:41)
[2017-06-19] MEDS ORDERED: OFLOXACIN 0.3% SOLN PREPACK OPHT.BTL TAKEHOME ONE (19:41)
--- NOTE | 2017-06-19 19:49 | EDPHY ---
H & P Time Seen by Provider: 06/19/17 19:33 HPI/ROS: HPI Alcohol abuse, fall with right-sided rib pain. 52-year-old male. History of homelessness and long-time alcohol abuse. Brought in by people who identify themselves as [employer] friends of his. Patient was found sleeping down by the [place]. He was having problems getting up. He told his friends that he fell about 2 weeks ago and is still having pain right lower anterior chest area over the ribs. He has been drinking alcohol today. He also has had some irritation to both eyes, left eye worse than right eye with purulent drainage. No changes in vision. He states that he wants to try to detox. ROS: Constitutional: No fever, no chills. Fatigue. Eyes: No discharge. No changes in vision. ENT: No sore throat. No nasal congestion or rhinorrhea. Respiratory: No cough. No shortness of breath. Cardiac: No chest pain, no palpitations. Gastrointestinal: No abdominal pain, no vomiting, no diarrhea. Genitourinary: No hematuria. No dysuria or increased frequency with urination. Musculoskeletal: No back pain. No neck pain. As above. Skin: No rashes. Former frostbite to both hands. Neurological: No headache. No focal weakness or altered sensation. Past medical history: Anxiety, COPD, alcohol abuse, alcohol withdrawal seizures , homeless. Social history: Smoker. As above. Physical Exam: General Appearance: Alert, dirty and disheveled, no distress. This patient is responding to questions appropriately and in full sentences. This patient appears well-hydrated and well-nourished. Head: Normocephalic atraumatic. Eyes: Pupils equal and round no pallor or injection. Significant for mild upper lower lid edema with purulent drainage in the medial canthus of both eyes , left side greater than the right side. ENT, Mouth: Poor dentition. No tongue lacerations or abrasions. Mucous membranes are moist. The pharyngeal tissues are unremarkable. No edema or swelling. No asymmetry suggestive of abscess. No erythema or exudates. Respiratory: There are no retractions, lungs sounds diminished bilaterally with diffuse wheezing throughout, greater on exhalation. Chest wall is stable to AP and lateral palpation. He does have an area of faint ecchymosis right- sided lower anterior lateral chest wall at the mid axillary line. This is tender on palpation over the lower ribs. No bony step-off or deformity noted to the area. Cardiovascular: Regular rate and rhythm. No murmur. Gastrointestinal: Abdomen is soft and nontender, no masses, bowel sounds normal. No focal tenderness at McBurney's point. No Duran sign. Neurological: Motor sensory function is grossly intact. Cranial nerves are normal. Mild resting tremor. Skin: Warm and dry, no rashes. Musculoskeletal: Neck is supple and nontender. Extremities are symmetrical. All joints range without pain or impingement. Psychiatric: No agitation. No depression. Database: EKG: Imaging: Right-sided rib series with PA chest x-ray: Acute right-sided rib fractures 5. , 6., 10. With about 2 mm of displacement. No pneumothorax. No infiltrate. Results were discussed with staff radiologist Dr. Richardson Lopez. Procedures: Emergency department course: Vital signs reviewed. The patient is tachycardic at 120. Pulse oximetry 72% on room air. Patient afebrile. Vital signs otherwise normal. Secondary to the purulence involving his conjunctivitis I will also treat the patient for possible gonococcal etiology. He will be given 1 g of IV ceftriaxone and 1000 mg of oral azithromycin. He will be started on ofloxacin drops as well. He will be given 1 mg of IV Ativan. This will be repeated as needed. He was started on IV normal saline with 1-2 L to be given over the next hour. He is a heavy smoker. He was hypoxic at 72% on room air in triage. He was started on albuterol/Atrovent nebulizer treatments with 3 to be given [id number]. He was also given 125 mg of IV Solu-Medrol. 8:00 p.m., the patient was re-evaluated. He has had 1 mg of IV Ativan. Heart rate currently 103. Pulse oximetry on nebulizers 100%. He feels more relaxed. 8:55 p.m., the patient is sleeping but easily arousable. Heart rate now at 98, sinus rhythm on the monitor. Pulse oximetry 90% on nebulizer which she is currently finishing. Discussed the results of his chest x-ray and lab work with him and his friend who is in the room with him. I discussed diagnosis of rib fractures, conjunctivitis and COPD exacerbation. I explained we would admit him overnight. We would obtain a social work consult in the morning to see if we could find him a suitable assisted to sleep in for the immediate time being. I discussed the case with on-call hospitalist Dr. Moore. He accepts this patient for admission. He will see the patient shortly. The patient's remaining emergency department course under my care has been uneventful. He was admitted under the care of Dr. Moore in stable and improved condition. Differential Diagnosis: The differential diagnosis on this patient includes but is not limited to conjunctivitis, rib fractures, pneumonia, COPD exacerbation, bronchitis, alcohol abuse, alcohol withdrawal. This represents a partial list of diagnoses considered. These considerations are based on history, physical exam, past history, reassessment and diagnostic testing. Smoking Status: Heavy smoker Constitutional: Initial Vital Signs Temperature (C) 36.9 C 06/19/17 19:24 Heart Rate 120 H 06/19/17 19:24 Respiratory Rate 18 06/19/17 19:24 Blood Pressure 128/76 H 06/19/17 19:24 O2 Sat (%) 72 L 06/19/17 19:24 O2 Delivery Mode Room Air O2 (L/minute) 4 Allergies/Adverse Reactions: No Known Allergies Allergy (Verified 01/13/15 07:24) Home Medications: Medication Instructions Recorded Albuterol [Proventil Inhaler HFA 1 - 2 puffs IH Q4H PRN 04/19/17 (*)] Fluticasone/Salmeter 250/50Mcg 1 puffs IH BID 04/19/17 [Advair 250/50 (*)] Medical Decision Making - Data Points Laboratory Results: Laboratory Results 06/19/17 19:42 06/19/17 19:42 06/19/17 06/19/17 19:42 19:42 WBC 7.47 10^3/uL 10^3/uL (3.80-9.50) RBC 4.92 10^6/uL 10^6/uL (4.40-6.38) Hgb 17.7 g/dL H g/dL (13.7-17.5) Hct 50.6 % % (40.0-51.0) MCV 102.8 fL H fL (81.5-99.8) MCH 36.0 pg H pg (27.9-34.1) MCHC 35.0 g/dL g/dL (32.4-36.7) RDW 15.3 % H % (11.5-15.2) Plt Count 195 10^3/uL 10^3/uL (150-400) MPV 9.0 fL fL (8.7-11.7) Neut % (Auto) 55.2 % % (39.3-74.2) Lymph % (Auto) 32.5 % % (15.0-45.0) Dane % (Auto) 9.4 % % (4.5-13.0) Eos % (Auto) 0.4 % L % (0.6-7.6) Baso % (Auto) 2.1 % H % (0.3-1.7) Nucleat RBC Rel Count 0.0 % % (0.0-0.2) Absolute Neuts (auto) 4.12 10^3/uL 10^3/uL (1.70-6.50) Absolute Lymphs (auto) 2.43 10^3/uL 10^3/uL (1.00-3.00) Absolute Monos (auto) 0.70 10^3/uL 10^3/uL (0.30-0.80) Absolute Eos (auto) 0.03 10^3/uL 10^3/uL (0.03-0.40) Absolute Basos (auto) 0.16 10^3/uL H 10^3/uL (0.02-0.10) Absolute Nucleated RBC 0.00 10^3/uL 10^3/uL (0-0.01) Immature Gran % 0.4 % % (0.0-1.1) Immature Gran # 0.03 10^3/uL 10^3/uL (0.00-0.10) Sodium 137 mEq/L mEq/L (135-145) Potassium 3.7 mEq/L mEq/L (3.5-5.2) Chloride 92 mEq/L L mEq/L (97-110) Carbon Dioxide 30 mEq/l mEq/l (22-31) Anion Gap 15 mEq/L mEq/L (8-16) BUN 8 mg/dL mg/dL (7-23) Creatinine 0.7 mg/dL mg/dL (0.7-1.3) Estimated GFR > 60 Glucose 115 mg/dL H mg/dL (70-100) Calcium 8.5 mg/dL mg/dL (8.5-10.4) Ethyl Alcohol 320 mg/dL H mg/dL (0-10) Medications Given: Discontinued Medications Albuterol/Ipratropium (Duoneb) 3 ml IH EDNOW ONE Stop: 06/19/17 19:52 Last Admin: 06/19/17 19:52 Dose: 3 ml Albuterol/Ipratropium (Duoneb) 6 ml IH EDNOW ONE Stop: 06/19/17 19:59 Last Admin: 06/19/17 20:12 Dose: 6 ml Azithromycin (Zithromax) 1,000 mg PO EDNOW ONE PRN Reason: Protocol Stop: 06/19/17 19:53 Last Admin: 06/19/17 20:39 Dose: 1,000 mg Sodium Chloride (Ns) 1,000 mls @ 0 mls/hr IV ONCE ONE; Wide Open PRN Reason: Protocol Stop: 06/19/17 19:41 Last Admin: 06/19/17 19:42 Dose: 1,000 mls Sodium Chloride (Ns) 1,000 mls @ 0 mls/hr IV ONCE ONE; Wide Open PRN Reason: Protocol Stop: 06/19/17 19:41 Last Admin: 06/19/17 19:42 Dose: 1,000 mls Ceftriaxone Sodium/Dextrose (Rocephin 1 Gm (Premix)) 50 mls @ 100 mls/hr IV EDNOW ONE PRN Reason: Protocol Stop: 06/19/17 20:24 Last Admin: 06/19/17 20:23 Dose: 50 mls Lorazepam (Ativan Injection) 1 mg IVP EDNOW ONE Stop: 06/19/17 19:41 Last Admin: 06/19/17 19:42 Dose: 1 mg Methylprednisolone Sodium Succinate (Solu-Medrol) 125 mg IVP EDNOW ONE Stop: 06/19/17 19:59 Last Admin: 06/19/17 20:03 Dose: 125 mg Ofloxacin (Ocuflox 0.3%) 1 drops EACHEYE EDNOW ONE Stop: 06/19/17 19:42 Last Admin: 06/19/17 19:46 Dose: 1 drop Ofloxacin (Ocuflox 0.3% Opht Drops Prepack) 1 btl TAKEHOME EDNOW ONE Stop: 06/19/17 19:42 Last Admin: 06/19/17 20:14 Dose: 1 btl Departure - Departure Disposition: [facility] Inpatient Acute Clinical Impression: Conjunctivitis, COPD exacerbation, Hypoxia, Alcohol withdrawal, Multiple rib fractures Referrals: NONE *PRIMARY CARE P,. [Primary Care Provider] - As per Instructions
[2017-06-19] MEDS ORDERED: IPRATROPIUM/ALBUTEROL 3 ML DEYVIAL ONE (19:50)
[2017-06-19] MEDS ORDERED: CEFTRIAXONE IM ONE (19:51)
[2017-06-19] MEDS ORDERED: IPRATROPIUM/ALBUTEROL 3 ML DEYVIAL IH ONE ×2 (19:51→19:58)
[2017-06-19] MEDS ORDERED: STERILE WATER IM ONE (19:51)
[2017-06-19] MEDS ORDERED: AZITHROMYCIN 250 MG TAB PO ONE (19:52)
[2017-06-19 19:56] LABS: PLATELET COUNT 195 10^3/uL (150-400)
[2017-06-19] MEDS ORDERED: methylPREDNISolone SOD SUCC 125 MG/2 ML VIAL ONE ×2 (19:56)
[2017-06-19] MEDS ORDERED: methylPREDNISolone SOD SUCC 125 MG/2 ML VIAL IVP ONE (19:58)
[2017-06-19] MEDS ORDERED: ONDANSETRON 4 MG/2 ML VIAL IVP PRN (21:39)
[2017-06-19] MEDS ORDERED: ONDANSETRON DISINTEGRATING 4 MG TAB PO PRN (21:39)
[2017-06-19] MEDS ORDERED: oxyCODONE IR 5 MG TAB PO PRN (21:39)
[2017-06-19] MEDS ORDERED: D5W 1/2 NS W/ 20 KCl/L 1,000 ML IV SCH (21:45)
[2017-06-19] MEDS ORDERED: ALBUTEROL 60 PUFFS/8 GM MDI IH PRN (22:46)
[2017-06-19] MEDS: OFLOXACIN 0.3% 5ML OPHT DROPS EACHEYE SCH (23:54)
--- NOTE | 2017-06-20 00:22 | GHP ---
[f rep st] HISTORY AND PHYSICAL DATE OF ADMISSION: 06/19/2017 CHIEF COMPLAINT: Brought in by friends. HISTORY OF PRESENT ILLNESS: This is a 52-year-old man whose friends found him today. His friend tel ls me that the lord led her to find him today and found him lying down in a parking lot. He normally uses a wheelchair; however, he was out of his wheelchair. He is homeless as well. They thus max t him in to the emergency department. In the emergency department, he was initially tachycardic. Th ere is some concern for alcohol withdrawal. He received a milligram of Ativan IV. When I am seeing him, he is quite somnolent. Apparently this is different from before he received the Ativan. His fr iends tell me that he fell a few weeks ago. He has some acute rib fractures on his right side. PAST MEDICAL/SURGICAL HISTORY: 1. COPD. 2. Homelessness. 3. Tobacco abuse. 4. Alcohol abuse. MEDICATIONS: Please see medication reconciliation. ALLERGIES: No known drug allergies. FAMILY HISTORY: Unobtainable given his current condition. SOCIAL HISTORY: He is homeless. He drinks alcohol and smokes. REVIEW OF SYSTEMS: Unobtainable given his current condition. PHYSICAL EXAM: VITAL SIGNS: Blood pressure is 108/76, heart rate 100, respiration rate 18, satting at 90, initially 72% on room air. Temperature is 36.9. GENERAL: The patient is a disheveled appear ing man in stained clothing who is sleeping. He is arousable to sternal rub but falls right back asl eep. He was reportedly communicating before receiving Ativan. HEENT: Shows him to have bilateral c onjunctivitis. CARDIOVASCULAR: Exam shows regular rate and rhythm. No murmurs, rubs, or gallops. PULMONARY: Exam shows him to be breathing comfortably. Exam is difficult; however, I do not appreci ate any crackles. ABDOMEN: He has normal bowel sounds. It is soft, nontender, nondistended. EXTRE MITIES: Exam shows him to have 2+ bilateral lower extremity pitting edema. SKIN: Exam shows no emily h but multiple tattoos. : Exam shows no Lomeli. NEUROLOGIC: Exam shows him to be moving all extr emities. However, he is very difficult to arouse. PSYCHIATRIC: Exam is unobtainable. LABS: Hemoglobin is 17, MCV is 102. Basic metabolic panel is normal. Chloride is negative. Alcoho l level is as 320. DATA: 1. Discussed this with Dr. De La O. Will admit to med-surg. 2. Rib x-ray shows 3 acute right-sided rib fractures. IMPRESSION AND PLAN: 1. Acute hypoxic respiratory failure: This may be more chronic than acute. In reviewing his previo us admission, there are no room air sats recorded; he was as low as 90% on 3 L. He does have a signi ficant history of tobacco and COPD. Can consider CT angiogram if he does not improve, though I think his hypoxia is explained by a chronic condition with possibly acute COPD exacerbation and rib fractu res. 2. Right-sided rib fractures: No pneumothorax appreciated at this point. Will recheck a chest x-ra y tomorrow morning to follow up on his rib fractures as well as possibly developing pneumonia. Place lidocaine patch. He will need pain control. I have not consulted General Surgery at this point. 3. Bilateral eye conjunctivitis: Agree with ofloxacin as ordered in the ED. He received Rocephin a s well as azithromycin for gonorrhea and chlamydia coverage given the purulence that was appreciated in the ED. 4. Alcohol abuse: He is at risk for withdrawal. I placed him on CIWA. 5. Homelessness: He will need case management assistance in finding a potential respite bed or equi valent given his rib fractures. 6. Tobacco abuse: Would assess whether he needs a nicotine patch when he is more alert. 7. Bilateral lower extremity edema: This is quite marked. I will order LFTs. Will also order an e chocardiogram. It is bilateral, thus I am less suspicious of thrombus. 8. Macrocytosis: Likely related to his alcohol use. Will check a B12. 9. Erythrocythemia. Likely related to dehydration. Will recheck tomorrow. /[id number]/MODL
--- NOTE | 2017-06-20 01:42 | CPEKG ---
Heart Rate: 99 RR Interval: 606 P-R Interval: 164 QRSD Interval: 84 QT Interval: 368 QTC Interval: 473 P Hutchinson: 76 QRS Hutchinson: -29 T Wave Hutchinson: 55 EKG Severity - OTHERWISE NORMAL ECG - EKG Impression: SINUS RHYTHM EKG Impression: BORDERLINE LEFT AXIS DEVIATION Electronically Signed By: Erika Hammond 21-Jun-2017 12:32:26
[2017-06-20] MEDS: OFLOXACIN 0.3% 5ML OPHT DROPS EACHEYE SCH ×6 (02:21→21:54)
[2017-06-20] MEDS: LORazepam 2 MG/ML INJ IVP PRN ×7 (04:44→23:07)
[2017-06-20 05:02] LABS: PLATELET COUNT 155 10^3/uL (150-400)
[2017-06-20] MEDS: IPRATROPIUM/ALBUTEROL 3 ML DEYVIAL IH SCH ×4 (06:07→20:44)
--- NOTE | 2017-06-20 09:08 | ECHO ---
[email or web address] [address] [address] Main: [phone] Fax: Transthoracic Echocardiogram Name: JIMMY LUKE MR#: [id number] Study Date: 06/20/2017 Study Time: 08:10 AM Date of : 1965 Age: 52 year(s) Height: 177.8 cm (70 in.) Weight: 63.5 kg (140 lb.) BSA: 1.79 m2 Gender: Male Examination: Echo Indication: LE Edema, ETOH WD, Copd Ex Image Quality: Contrast: Requested by: Jostin Moore BP: 122 mmHg/78 mmHg Heart Rate: Rhythm: Indication: LE Edema, ETOH WD, Copd Ex Procedure Staff Floriculturist: Flakito Chauhan RDCS Reading Physician: Neptali Garg MD Requesting Provider: Conclusions: Normal size left ventricle. Normal global systolic LV function. EF is 57 %. Moderately dilated right ventricle. Moderately reduced RV function. Flattened interventricular septum consistent with right ventricular pressure and/or volume overload free wall. Trivial tricuspid valve regurgitation. The pulmonary artery pressure is mild to moderately increased. Measurements: Chambers Valvular Assessment AV/MV Valvular Assessment TV/PV Normal Normal Normal Name Value Range Name Value Range Name Value Range Ao Khadijah (MM): 3.2 cm (2.2 cm-3.7 AV Vmax: 1.21 m/s (1 m/s-1.7 TR Vmax: 3.34 mm/s ( - ) cm) m/s) TR PGmax: 45 mmHg ( - ) IVSd (2D): 0.8 cm (0.6 cm-1.1 AV maxP mmHg ( - ) syst. PAP: 50 mmHg ( - ) cm) LVOT Vmax: 0.43 m/s (0.7 m/s-1.1 PV Vmax: 0.80 m/s (0.6 m/s-0.9 LVDd (2D): 4.2 cm (4.2 cm-5.9 m/s) m/s) cm) MV E Vmax: 0.75 m/s ( - ) PV PGmax: 3 mmHg ( - ) LVDs (2D): 3.0 cm (2.1 cm-4 cm) LVPWd (2D): 0.9 cm (0.6 cm-1 cm) LVEF (2D): 57 (>=54 %) Continued Measurements: Chambers Valvular Assessment TV/PV Name Value Name Value Patient: JIMMY LUKE Study Date: 06/20/2017 Page 1 of 2 08:10 AM LADs Lon.4 cm CVP (est.): 5 mmHg LA Area: 12.2 cm2 Findings: Left Ventricle: Normal size left ventricle. Normal global systolic LV function. EF is 57 %. Right Ventricle: Moderately dilated right ventricle. Moderately reduced RV function. Flattened interventricular septum consistent with right ventricular pressure and/or volume overload free wall. Left Atrium: The left atrium is normal in size. Right Atrium: The right atrium is normal in size. Mitral Valve: The mitral valve is normal in appearance and function. Aortic Valve: The aortic valve is tri-leaflet and functions normally. There is no aortic valve regurgitation. Tricuspid Valve: The tricuspid valve appears normal. Trivial tricuspid valve regurgitation. The pulmonary artery pressure is mild to moderately increased. Pulmonic Valve: The pulmonic valve is normal in appearance and function. Aorta: The aorta is normal. Pericardium: No pericardial effusion. (No Signature Object) Patient: JIMMY LUKE Study Date: 06/20/2017 Page 2 of 2 08:10 AM [id number]
[2017-06-20] MEDS: predniSONE 20 MG TAB PO SCH (09:34)
[2017-06-20] MEDS: ENOXAPARIN 40 MG/0.4 ML SYR SC SCH (09:34)
[2017-06-20] MEDS: LIDOCAINE 4%/MENTHOL 1% PATCH TD SCH (09:35)
[2017-06-20] MEDS: THIAMINE HCL 500 MG in NS 100 ML IV SCH (09:35)
[2017-06-20] MEDS: FLUTICASONE/SALMETER 250/50MCG DISKUS IH SCH ×2 (09:49→20:44)
--- NOTE | 2017-06-20 10:16 | ASMTCMCOM ---
CM Note CM Note Notes: Pt. is a 52-year-old man who goes by "Vincentian". Pt. admitted for acute hypoxic respiratory failure. Found down by a friend in a parking lot and brought to the ED. Pt. also has eye conjunctivitis. Hx. COPD, smoking, ETOHism, and recent rib fractures. Pt. on 10 L O2 and uses a wheelchair at baseline. Pt. is homeless per H&P. Pt. too ill today to see. PT and OT are ordered to help guide d/c POC. Date Signed: 06/20/2017 10:16 AM Electronically Signed By:Kala Mckee LCSW
[2017-06-20] MEDS ORDERED: chlordiazePOXIDE 25 MG CAP PO ONE (16:05)
[2017-06-20] MEDS ORDERED: FUROSEMIDE 40 MG/4 ML VIAL IVP ONE (16:06)
--- NOTE | 2017-06-20 16:10 | HOSPPROG ---
Hospitalist Progress Note Assessment/Plan: 52 yo M w alcoholism here w rib fx, found down, volume overload alcohol withdrawal: continue ciwa librium X 1 now at risk for seizures volume overload: echo w RV volume and pressure overload suspect 2/2 chronic hypoxemia and no 02 diuresis rib fx: lidocaine patch alcoholism: treat withdrawal prophj :lmwh dispo: inpt Subjective: cxr w rib fx, pulm edema (interp by me) case d/w dr dela cruz Objective: Vital Signs Temp Pulse Resp BP Pulse Ox 36.4 C 125 H 20 105/66 90 L 06/20/17 14:54 06/20/17 14:54 06/20/17 14:54 06/20/17 14:54 06/20/17 14:54 Laboratory Results 06/20/17 04:27 06/20/17 04:27 06/19/17 06/20/17 06/21/17 05:59 05:59 05:59 Intake Total 2100 Output Total 400 Balance 1700 - Physical Exam Constitutional: no apparent distress, unkempt Eyes: PERRL, anicteric sclera Ears, Nose, Mouth, Throat: moist mucous membranes, hearing normal Cardiovascular: regular rate and rhythym, no murmur, rub, or gallop, tachycardia Respiratory: no respiratory distress, No no rales or rhonchi Gastrointestinal: normoactive bowel sounds, soft, non-tender abdomen Genitourinary: No dempsey in urethra Skin: warm, normal color Musculoskeletal: full muscle strength Neurologic: AAOx3 Psychiatric: interacting appropriately ICD10 Worksheet Patient Problems: Problems Problem Status Onset Alcohol withdrawal Acute COPD exacerbation Acute Conjunctivitis Acute Hypoxia Acute Multiple rib fractures Acute Alcoholic ketoacidosis Acute Hypothermia Acute
[2017-06-20] MEDS: NICOTINE 21 MG/24 HR PATCH TD SCH (16:23)
[2017-06-20] MEDS: ACETAMINOPHEN 325 MG TAB PO PRN (16:23)
[2017-06-20] MEDS ORDERED: DEXMEDETOMIDINE HCL 400 MCG in NS 100 ML IV SCH (17:30)
--- NOTE | 2017-06-20 17:32 | HOSPPROG ---
Hospitalist Progress Note Assessment/Plan: Stat team called for increased oxygen needs. Was on 7L throughout day and increased to 15L 52 yo male here for Etoh w/d and right-rib fractures. Right heart failure -dosed 10mg Ativan, Librium 50mg today S: he says SOB, pain right chest HR:115, oxygen 97% 15L Gen: disheveled HEENT: poor dentition CV: tachycardia Lungs: diminished, TTP right ribs Neuro: tremulous #Acute hypoxic resp failure -multifactorial with volume overload, sedative medications and possible aspiration -just dosed Lasix 40mg and out out 800cc, stat CXR, ABG. Hold off abx now as afebrile. #Etoh w/d: cont CIWA. #Disp: transfer to ICU for monitoring Critical care time spent: 30 min bedside, reviewing note and medications, and coordinating transfer to ICU Objective: Vital Signs Temp Pulse Resp BP Pulse Ox 36.4 C 115 H 20 105/66 90 L 06/20/17 14:54 06/20/17 17:17 06/20/17 17:17 06/20/17 14:54 06/20/17 17:17 Laboratory Results 06/20/17 04:27 06/20/17 04:27 06/19/17 06/20/17 06/21/17 05:59 05:59 05:59 Intake Total 2100 400 Output Total 400 Balance 1700 400 ICD10 Worksheet Patient Problems: Problems Problem Status Onset Alcohol withdrawal Acute COPD exacerbation Acute Conjunctivitis Acute Hypoxia Acute Multiple rib fractures Acute Alcoholic ketoacidosis Acute Hypothermia Acute
--- NOTE | 2017-06-20 17:52 | PDMN ---
Medical Necessity Medical necessity: Change to IP, as of 06/20/17, per MD; los >2 mn for ongoing management of rib fxs, fluid volume overload & acute hypoxic respiratory failure -currently requiring 15 lpm high-flow O2, as well as bilateral eye conjunctivitis & alcohol withdrawal; admit further workup/close monitoring, IV diuresis, respiratory supportive care & CIWA protocol; hx COPD, homelessness, alcohol & tobacco abuse; per H&P & order 06/20/17
[2017-06-20] MEDS ORDERED: DEXMEDETOMIDINE IN 0.9 % NACL 100 ML IV SCH (18:00)
[2017-06-20] MEDS: PATCH REMOVAL 1 EA PATCH TD SCH (21:53)
[2017-06-21] MEDS: LORazepam 2 MG/ML INJ IVP PRN ×8 (00:46→21:47)
[2017-06-21] MEDS: OFLOXACIN 0.3% 5ML OPHT DROPS EACHEYE SCH ×6 (02:18→21:55)
[2017-06-21] MEDS: IPRATROPIUM/ALBUTEROL 3 ML DEYVIAL IH SCH ×4 (05:33→23:05)
[2017-06-21] MEDS: NICOTINE 21 MG/24 HR PATCH TD SCH (09:00)
[2017-06-21] MEDS: ENOXAPARIN 40 MG/0.4 ML SYR SC SCH (09:00)
[2017-06-21] MEDS: FUROSEMIDE 100 MG/10 ML VIAL IVP SCH ×2 (09:01→14:32)
[2017-06-21] MEDS: LIDOCAINE 4%/MENTHOL 1% PATCH TD SCH (09:01)
[2017-06-21] MEDS: FUROSEMIDE 40 MG/4 ML VIAL IVP SCH ×2 (09:01→11:02)
[2017-06-21] MEDS: predniSONE 20 MG TAB PO SCH (09:02)
[2017-06-21] MEDS ORDERED: FUROSEMIDE 40 MG/4 ML VIAL IVP SCH (09:03)
[2017-06-21 10:11] LABS: PLATELET COUNT 142 10^3/uL (150-400)
[2017-06-21] MEDS: FLUTICASONE/SALMETER 250/50MCG DISKUS IH SCH ×2 (10:54→23:06)
--- NOTE | 2017-06-21 12:40 | ASMTCMCOM ---
CM Note CM Note Notes: Met with patient who was mostly lucid but still somewhat confused. We talked about discharge planning and his connectedness with resources for the homeless community. He says he sleeps outside because he has been "kicked out" of shelters. He is a [facility] patient, although according to their records he was only seen one time there in 2017. I scheduled him a hospital follow up appointment with his PCP on 06/25 @ 1120. Patient says he has two friends, Anny ([phone]) and Mackenzie ([phone]), both of whom I called and left messages for. H&P says that patient is wheelchair bound; patient says he can "sorta walk." Regardless, there is no wheelchair in the room, although patient says there is. This is why I called his friends. PT/OT have been ordered, so we will await their evaluations. Case Management will follow. Date Signed: 06/21/2017 12:40 PM Electronically Signed By:Regine Hunt RN
--- NOTE | 2017-06-21 14:47 | GCON ---
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 HISTORY OF PRESENT ILLNESS: The patient is a pleasant 52-year-old white male with a past medical his tory of alcohol abuse, homelessness, tobacco abuse, and chronic obstructive pulmonary disease. He wa s brought via his previous friends after he was found down in a parking lot. He apparently is always using a wheelchair. He is homeless. He was seen in the emergency room and was subsequently admitte d to the intensive care unit. In discussion with the patient, he states he feels somewhat better. Yajaira morales still has some resting shortness of breath. He is beginning to have some tremors. He admits to so me chest pain secondary to his rib fractures. There is no fever or night sweats. REVIEW OF SYSTEMS: A 10-point review of systems was performed and is negative with the exception of HPI. PAST MEDICAL HISTORY: Significant for alcoholism, homelessness, tobacco abuse, and chronic obstructi ve pulmonary disease. FAMILY HISTORY: Noncontributory. SOCIAL HISTORY: Heavy tobacco use. Heavy alcohol use. He is homeless and has no family support. ALLERGIES: No known to medications. PHYSICAL EXAMINATION: VITAL SIGNS: Blood pressure is 126/83, pulse 113, respirations 18, temperatur e 36.8, oxygen saturation 91% on 3 L. GENERAL: He is an unkempt, 52-year-old, white male who is res ting comfortably with mildly tremulous and tachycardic. HEENT: Eyes are PERRLA, EOMI. Throat shows no erythema or tonsillar hypertrophy. NECK: Supple. There is no cervical adenopathy. HEART: Reg ular rate and rhythm without murmurs, rubs, or gallops. LUNGS: Show significant prolongation expira tory phase, but there is no wheeze. ABDOMEN: Soft, nontender. Bowel sounds are present. EXTREMITI ES: 2+ lower extremity edema. LABORATORIES: White count is 8.8, hemoglobin 15, hematocrit 47, platelet count is 142. MCV is 106. Arterial blood gas: PH 7.38, pCO2 55, pO2 of 144, bicarbonate 34, oxygen saturation 95% on 10 L. So dium is 139, potassium 4.3, chloride 97, CO2 37, BUN 11, creatinine 0.6. Glucose is 85. Alcohol lev el on presentation was 320. Chest x-ray: Shows bibasilar atelectasis and rib fractures. No pneumothorax is present. Echocardiogram: Ejection fraction is 57%. Mildly to moderately increased pulmonary artery pressures . Moderately dilated right ventricle. IMPRESSION: 1. Alcoholism. 2. Impending alcohol withdrawals. 3. Chronic obstructive pulmonary disease, acute exacerbation. 4. Hypercarbic respiratory failure secondary to above. 5. Tobacco abuse. 6. Pulmonary hypertension. 7. Homelessness. 8. Macrocytosis. RECOMMENDATIONS: 1. Agree with CIWA protocol. 2. both albuterol and Atrovent. 3. Would recommend IV steroids. 4. DVT and PE prophylaxis. 5. Stress ulcer prophylaxis. 6. Patient wishes to quit drinking alcohol. /[id number]/MODL
[2017-06-21] MEDS: THIAMINE HCL 500 MG in NS 100 ML IV SCH (16:04)
--- NOTE | 2017-06-21 17:07 | HOSPPROG ---
Hospitalist Progress Note Assessment/Plan: Assessment: 52 yo M p/w acute systolic CHF exacerbation c/b acute hypoxic respiratory failure, acute encephalopathy, and acute alcohol withdraw Plan: # Acute alcohol withdrawal. Evidenced by tremulousness, encephalopathy - d/w Dr. Godoy on team rounds, agrees w/ CIWA w/ PRN librium/ativan # Acute systolic CHF exacerbation. Right-side w/ Echo demonstrating RV overload , moderately reduced fxn and dilation - unclear etiology, possibly 2/2 untreated pulm disease w/ ongoing smoking - net neg 500 cc o/n - strict I/O/weights, increase lasix to 80mg IV bid and gauge effect - recommend outpt sleep study, check dimer, LE US w/o DVT # Acute hypoxic respiratory failure. Evidenced by SpO2 72% on RA, 83% on 5LPM, increased to 15LPM NRB mask, objective tachypnea and resp distress, transferred to ICU, 2/2 CHF - stabilized w/ diuresis - weaning o2 requirements # Acute encephalopathy. Evidenced by global brain dysfunction characterized as poor concentration, lethargy, delayed cognition, all of which are apparently acute changes from baseline, 2/2 metabolic effects of EtOH withdraw and hypoxia - maintain SpO2 > 90% - anticipate protracted recovery, as he will require benzos for EtOH withdraw, which will in turn temporarily worsen his mental status # Acute rib fxr. Unclear onset, present on CXR, tenderness on exam - lidoderm patch # Acute atelectasis. Present on CXR (personally interpreted), IS - PCT wnl, infxn unlikely Diet. As itz PPx. High risk, lovenox 40 Code. Full Dispo. ADD uncertain, ongoing clinical w/d. High-level medical complexity, high risk patient for worsening morbidity and/or mortality secondary to the issues outlined above. Subjective: Patient reports he has some ongoing right-sided chest discomfort, he is "hakering" for cigarette Objective: Vital Signs Temp Pulse Resp BP Pulse Ox 36.8 C 119 H 25 H 117/76 95 06/21/17 16:00 06/21/17 16:00 06/21/17 16:00 06/21/17 16:00 06/21/17 16:00 Laboratory Results 06/21/17 09:56 06/21/17 09:56 06/20/17 06/21/17 06/22/17 05:59 05:59 05:59 Intake Total 1180 Output Total 400 1700 4500 Balance -400 -986 -4564 - Physical Exam Constitutional: no apparent distress, chronically ill appearing, uncomfortable, unkempt Eyes: scleral injection Cardiovascular: tachycardia, edema (1+ bilateral lower extremity), No systolic murmur, No irregularly irregular Respiratory: inspiratory crackles (Bilateral bases), No reduced air movement, No expiratory wheeze, No bronchial breath sounds Gastrointestinal: normoactive bowel sounds, soft, non-tender abdomen, no palpable masses, No distension Neurologic: AAOx3, No asterixes (Bilateral upper extremity tremulousness), No facial droop Psychiatric: anxious, flat affect, poor insight, other (Concentration 0/7), No agitated ICD10 Worksheet Patient Problems: Problems Problem Status Onset Alcohol withdrawal Acute COPD exacerbation Acute Conjunctivitis Acute Hypoxia Acute Multiple rib fractures Acute Alcoholic ketoacidosis Acute Hypothermia Acute
[2017-06-21] MEDS: NICOTINE POLACRILEX 2 MG GUM B PRN (17:23)
[2017-06-22] MEDS: OFLOXACIN 0.3% 5ML OPHT DROPS EACHEYE SCH ×6 (03:23→23:02)
[2017-06-22] MEDS: PATCH REMOVAL 1 EA PATCH TD SCH (03:23)
[2017-06-22] MEDS: IPRATROPIUM/ALBUTEROL 3 ML DEYVIAL IH SCH ×4 (05:04→20:50)
[2017-06-22] MEDS: FUROSEMIDE 20 MG TAB PO SCH ×2 (09:02→16:58)
[2017-06-22] MEDS: POTASSIUM CL 10 MEQ TAB PO SCH (09:02)
[2017-06-22] MEDS: predniSONE 20 MG TAB PO SCH (09:02)
[2017-06-22] MEDS: NICOTINE 21 MG/24 HR PATCH TD SCH (09:03)
[2017-06-22] MEDS: LIDOCAINE 4%/MENTHOL 1% PATCH TD SCH (09:03)
[2017-06-22] MEDS: THIAMINE HCL 500 MG in NS 100 ML IV SCH (09:03)
[2017-06-22] MEDS: ENOXAPARIN 40 MG/0.4 ML SYR SC SCH (09:03)
--- NOTE | 2017-06-22 09:15 | PDINTPN ---
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 Wishes to stop drinking alcohol * Alcohol withdrawals-doing well with current therapy. Patient awake and alert. -continue CIWA protocol * Homeless * Chronic obstructive pulmonary disease -continue frequent nebulized treatments -continue IV steroids * Acute hypercarbic respiratory failure secondary to above -will wean FiO2 as tolerated * Pulmonary hypertension * Microcytosis * PT/OT * Out of bed to chair * Nutrition-adequate Subjective: Resting comfortably. No current complaints. Objective: Vital Signs Temp Pulse Resp BP Pulse Ox 36.9 C 79 18 101/66 95 06/22/17 04:00 06/22/17 05:04 06/22/17 05:04 06/22/17 04:00 06/22/17 05:04 Laboratory Results 06/21/17 09:56 06/22/17 05:08 06/21/17 06/22/17 06/23/17 05:59 05:59 05:59 Intake Total 1180 1900 Output Total 1700 7500 Balance -520 -5600 Laboratory Results 06/21/17 09:56 06/22/17 05:08 06/22/17 05:08 Calcium 8.3 mg/dL L mg/dL (8.5 - 10.4) Magnesium 1.6 mg/dL mg/dL (1.6 - 2.3) Total Bilirubin 1.3 mg/dL mg/dL (0.1 - 1.4) AST 67 IU/L H IU/L (17 - 59) ALT 58 IU/L IU/L (21 - 72) Alkaline Phosphatase 152 IU/L H IU/L (38 - 126) Total Protein 6.1 g/dL L g/dL (6.3 - 8.2) Albumin 3.0 g/dL L g/dL (3.5 - 5.0) - Time Spent With Patient Time Spent With Patient: 35 min of time spent with patient, over 1/2 involved with coordination of care or counseling. Case discussed with nursing Physical Exam - Physical Exam General Appearance: alert, no apparent distress EENT: PERRL/EOMI Neck: non-tender, full range of motion, supple, normal inspection Respiratory: prolonged expiration, No respiratory distress, No wheezing Cardiac/Chest: normal peripheral pulses, regular rate, rhythm Peripheral Pulses: 2+: carotid (R), carotid (L), femoral (R), femoral (L), dorsalis-pedis (R), dorsalis-pedis (L) Abdomen: normal bowel sounds, non-tender, soft Male Genitalia: deferred Rectal: deferred Skin: normal color, warm/dry Extremities: normal range of motion, non-tender, normal inspection, normal capillary refill ICD10 Worksheet Patient Problems: Problems Problem Status Onset Alcohol withdrawal Acute COPD exacerbation Acute Conjunctivitis Acute Hypoxia Acute Multiple rib fractures Acute Alcoholic ketoacidosis Acute Hypothermia Acute
[2017-06-22] MEDS: FLUTICASONE/SALMETER 250/50MCG DISKUS IH SCH ×2 (11:04→20:50)
--- NOTE | 2017-06-22 18:34 | HOSPPROG ---
Hospitalist Progress Note Assessment/Plan: Assessment: 52 yo M p/w acute systolic CHF exacerbation c/b acute hypoxic respiratory failure, acute encephalopathy, and acute alcohol withdraw Plan: # Acute alcohol withdrawal. Evidenced by tremulousness, encephalopathy - d/w Dr. Godoy on team rounds, agrees w/ ongoing SDU care w/ CIWA 12, cont ativan/librium # Acute systolic CHF exacerbation. Right-side w/ Echo demonstrating RV overload , moderately reduced fxn and dilation - unclear etiology, possibly 2/2 untreated pulm disease w/ ongoing smoking - net neg 5.6L o/n - strict I/O/weights, reduce lasix to 20mg daily PO - recommend outpt sleep study, check dimer, LE US w/o DVT # Acute hypoxic respiratory failure. Evidenced by SpO2 72% on RA, 83% on 5LPM, increased to 15LPM NRB mask, objective tachypnea and resp distress, transferred to ICU, 2/2 CHF - stabilized w/ diuresis - weaning o2 requirements # Acute encephalopathy. Evidenced by global brain dysfunction characterized as poor concentration, disorientation worsening today, lethargy, delayed cognition , all of which are apparently acute changes from baseline, 2/2 metabolic effects of EtOH withdraw and hypoxia - maintain SpO2 > 90% - anticipate protracted recovery, as he will require benzos for EtOH withdraw, which will in turn temporarily worsen his mental status # Acute rib fxr. Unclear onset, present on CXR, tenderness on exam - lidoderm patch # Acute atelectasis. Present on CXR, IS - PCT wnl, infxn unlikely # Metabolic alkalosis. Acute, contraction, 2/2 aggressive diuresis, reduce lasix dosing, monitor daily CMP Diet. As itz PPx. High risk, lovenox 40 Code. Full Dispo. ADD uncertain, ongoing clinical w/d. Subjective: patient reports less discomfort, eating/drinking Objective: Vital Signs Temp Pulse Resp BP Pulse Ox 36.9 C 107 H 20 101/66 93 06/22/17 04:00 06/22/17 16:48 06/22/17 16:48 06/22/17 04:00 06/22/17 16:48 Laboratory Results 06/21/17 09:56 06/22/17 05:08 06/21/17 06/22/17 06/23/17 05:59 05:59 05:59 Intake Total 1180 1900 700 Output Total 1700 7500 900 Balance -520 -5600 -200 - Physical Exam Constitutional: no apparent distress, not in pain, chronically ill appearing, uncomfortable, unkempt Cardiovascular: regular rate and rhythym, no murmur, rub, or gallop, edema ( trace bilat LE) Respiratory: inspiratory crackles, No reduced air movement, No expiratory wheeze , No bronchial breath sounds, No respiratory distress Gastrointestinal: normoactive bowel sounds, soft, non-tender abdomen, no palpable masses, No distension Neurologic: other (bilat UE tremulousness, AAOx1 (person only)), No AAOx3, No asterixes Psychiatric: not anxious, encephalopathic, poor insight, poor judgement, poor memory, No agitated ICD10 Worksheet Patient Problems: Problems Problem Status Onset Hypothermia Acute Alcoholic ketoacidosis Acute Conjunctivitis Acute COPD exacerbation Acute Hypoxia Acute Alcohol withdrawal Acute Multiple rib fractures Acute
[2017-06-23] MEDS: OFLOXACIN 0.3% 5ML OPHT DROPS EACHEYE SCH ×5 (02:48→17:57)
[2017-06-23] MEDS: PATCH REMOVAL 1 EA PATCH TD SCH (02:48)
[2017-06-23] MEDS: LORazepam 2 MG/ML INJ IVP PRN ×5 (05:40→19:53)
[2017-06-23] MEDS: ACETAMINOPHEN 325 MG TAB PO PRN (05:41)
[2017-06-23] MEDS: IPRATROPIUM/ALBUTEROL 3 ML DEYVIAL IH SCH (05:50)
[2017-06-23] MEDS: predniSONE 20 MG TAB PO SCH (09:11)
[2017-06-23] MEDS: NICOTINE 21 MG/24 HR PATCH TD SCH (09:11)
[2017-06-23] MEDS: THIAMINE HCL 100 MG TAB PO SCH (09:11)
[2017-06-23] MEDS: LIDOCAINE 4%/MENTHOL 1% PATCH TD SCH (09:12)
[2017-06-23] MEDS: POTASSIUM CL 10 MEQ TAB PO SCH (09:13)
[2017-06-23] MEDS: FUROSEMIDE 20 MG TAB PO SCH ×2 (09:13→14:34)
[2017-06-23] MEDS: ENOXAPARIN 40 MG/0.4 ML SYR SC SCH (09:13)
--- NOTE | 2017-06-23 09:27 | PDINTPN ---
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 Wishes to stop drinking alcohol * Alcohol withdrawals-doing well with current therapy. Patient awake and alert. CIWA at 5 this morning, the somewhat tremulous currently -continue CIWA protocol * Homeless * Chronic obstructive pulmonary disease -continue frequent nebulized treatments -continue IV steroids * Acute hypercarbic respiratory failure secondary to above. Improved -will wean FiO2 as tolerated * Hyponatremia-mild * Pulmonary hypertension * Microcytosis * PT/OT * Out of bed to chair * Nutrition-adequate Overall improved Subjective: Sitting up in bed and eating breakfast. Comfortable. Alert and orient x3. Somewhat tremulous. Objective: Vital Signs Temp Pulse Resp BP Pulse Ox 37.0 C 100 18 125/85 H 93 06/23/17 07:59 06/23/17 07:59 06/23/17 07:59 06/23/17 07:59 06/23/17 07:59 Laboratory Results 06/21/17 09:56 06/23/17 05:24 06/22/17 06/23/17 06/24/17 05:59 05:59 05:59 Intake Total 1900 1300 Output Total 7500 2750 600 Balance -5600 -1450 -600 Laboratory Results 06/21/17 09:56 06/23/17 05:24 06/23/17 05:24 Calcium 7.9 mg/dL L mg/dL (8.5 - 10.4) Total Bilirubin 1.4 mg/dL mg/dL (0.1 - 1.4) AST 56 IU/L IU/L (17 - 59) ALT 49 IU/L IU/L (21 - 72) Alkaline Phosphatase 141 IU/L H IU/L (38 - 126) - Time Spent With Patient Time Spent With Patient: 25 min of time spent with patient, over 1/2 involved with coordination of care or counseling Case discussed with nursing Physical Exam - Physical Exam General Appearance: alert, no apparent distress EENT: PERRL/EOMI Neck: non-tender, full range of motion, supple, normal inspection Respiratory: prolonged expiration, No respiratory distress, No wheezing Cardiac/Chest: normal peripheral pulses, regular rate, rhythm, systolic murmur Peripheral Pulses: 2+: carotid (R), carotid (L), femoral (R), femoral (L), dorsalis-pedis (R), dorsalis-pedis (L) Abdomen: normal bowel sounds, non-tender, soft Male Genitalia: deferred Rectal: deferred Skin: normal color, warm/dry Extremities: normal range of motion, non-tender, normal inspection, normal capillary refill Neuro/Psych: alert ICD10 Worksheet Patient Problems: Problems Problem Status Onset Alcohol withdrawal Acute COPD exacerbation Acute Conjunctivitis Acute Hypoxia Acute Multiple rib fractures Acute Alcoholic ketoacidosis Acute Hypothermia Acute
[2017-06-23] MEDS ORDERED: IPRATROPIUM/ALBUTEROL 3 ML DEYVIAL IH PRN (10:12)
[2017-06-23] MEDS: FLUTICASONE/SALMETER 250/50MCG DISKUS IH SCH ×2 (10:45→20:34)
[2017-06-23] MEDS: LORazepam 1 MG TAB PO PRN ×2 (11:28→14:36)
--- NOTE | 2017-06-23 12:47 | HOSPPROG ---
Hospitalist Progress Note Assessment/Plan: Assessment: 52 yo M p/w acute systolic CHF exacerbation c/b acute hypoxic respiratory failure, acute encephalopathy, and acute alcohol withdraw Plan: # Acute alcohol withdrawal. Evidenced by tremulousness, encephalopathy - d/w Dr. Godoy on team rounds, agrees w/ ongoing SDU care ongoing EtOH w/d, streamline Rx to ativan IV/PO PRN # Acute systolic CHF exacerbation. Right-side w/ Echo demonstrating RV overload , moderately reduced fxn and dilation - unclear etiology, possibly 2/2 untreated pulm disease w/ ongoing smoking - net neg 1.4L o/n - strict I/O/weights, cont lasix 20mg PO daily - recommend outpt sleep study # Acute hypoxic respiratory failure. Evidenced by SpO2 72% on RA, 83% on 5LPM, increased to 15LPM NRB mask, objective tachypnea and resp distress, transferred to ICU, 2/2 CHF - stabilized w/ diuresis - weaning o2 requirements # Acute encephalopathy. Evidenced by global brain dysfunction characterized as poor concentration, disorientation worsening today, lethargy, delayed cognition , all of which are apparently acute changes from baseline, 2/2 metabolic effects of EtOH withdraw and hypoxia - maintain SpO2 > 90% - improving today, patient understands plan for outpt sobriety, and he is in agreement # Acute rib fxr. Unclear onset, present on CXR, tenderness on exam - lidoderm patch # Acute atelectasis. Present on CXR, IS - PCT wnl, infxn unlikely # Metabolic alkalosis. Acute, contraction, 2/2 aggressive diuresis, reduce lasix dosing, monitor daily CMP Diet. As itz PPx. High risk, lovenox 40 Code. Full Dispo. ADD uncertain, ongoing clinical w/d. Subjective: patient denies any pain, showered w/ asst Objective: Vital Signs Temp Pulse Resp BP Pulse Ox 37.0 C 98 18 114/89 H 98 06/23/17 07:59 06/23/17 12:00 06/23/17 12:00 06/23/17 12:00 06/23/17 12:00 Laboratory Results 06/21/17 09:56 06/23/17 05:24 06/22/17 06/23/17 06/24/17 05:59 05:59 05:59 Intake Total 1900 1300 Output Total 7500 2750 600 Balance -5600 -1450 -600 - Physical Exam Constitutional: no apparent distress, not in pain, chronically ill appearing, unkempt, No uncomfortable Cardiovascular: regular rate and rhythym, no murmur, rub, or gallop, edema ( trace bilat LE), No irregularly irregular, No tachycardia Respiratory: inspiratory crackles, No reduced air movement, No expiratory wheeze , No bronchial breath sounds, No respiratory distress Gastrointestinal: normoactive bowel sounds, soft, non-tender abdomen, no palpable masses, No distension Neurologic: AAOx3, sensation intact bilaterally, other (bilat UE tremulousness) , No asterixes Psychiatric: interacting appropriately, anxious, other (concentration 7/7, cognition somewhat slowed), No agitated ICD10 Worksheet Patient Problems: Problems Problem Status Onset Hypothermia Acute Alcoholic ketoacidosis Acute Conjunctivitis Acute COPD exacerbation Acute Hypoxia Acute Alcohol withdrawal Acute Multiple rib fractures Acute
[2017-06-23] MEDS ORDERED: IOPAMIDOL (ISOVUE 370) 100 ML BTL IV ONE (14:33)
[2017-06-24] MEDS: OFLOXACIN 0.3% 5ML OPHT DROPS EACHEYE SCH ×7 (02:38→21:25)
[2017-06-24] MEDS: PATCH REMOVAL 1 EA PATCH TD SCH ×2 (02:38→21:25)
[2017-06-24] MEDS: LORazepam 2 MG/ML INJ IVP PRN ×4 (02:39→22:22)
[2017-06-24] MEDS: FLUTICASONE/SALMETER 250/50MCG DISKUS IH SCH ×2 (08:08→21:07)
[2017-06-24] MEDS: POTASSIUM CL 10 MEQ TAB PO SCH (08:59)
[2017-06-24] MEDS: THIAMINE HCL 100 MG TAB PO SCH (08:59)
[2017-06-24] MEDS: NICOTINE 21 MG/24 HR PATCH TD SCH (08:59)
[2017-06-24] MEDS: ENOXAPARIN 40 MG/0.4 ML SYR SC SCH (08:59)
[2017-06-24] MEDS: predniSONE 20 MG TAB PO SCH (08:59)
[2017-06-24] MEDS: FUROSEMIDE 20 MG TAB PO SCH ×2 (08:59→14:27)
[2017-06-24] MEDS: LIDOCAINE 4%/MENTHOL 1% PATCH TD SCH (09:00)
--- NOTE | 2017-06-24 09:25 | PDINTPN ---
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 Treated with CIWA, O2, steroids, nebs, diuretics, with slow improvement. * Hypoxia- sounds like related to both CHF (EF 57%) and COPD with a likely chronic component of hypoxia since HCT elevated on admission (less likely dehydration given evidence of volume overload). Improved and using only 2 lpm NC. PE seems less likely, but CTA pending today. Remains on Lovenox 40/day since admission * COPD- presumed. Reasonable for now and agree with prednisone and nebs PRN. Will discuss when to taper on rounds today. * PH- although the sPAP is not severely elevated, the moderately dilated RV and reduced RV function with a flattened septum on admission are poor prognostic signs. I suspect he has group III PH and not group I PAH, so treating underlying problems such as hypoxia would take precedence and he is not a candidate for PAH-specific therapy. * ETOH- remains on CIWA * PT/OT Subjective: no complaints except poor sleep Objective: Vital Signs Temp Pulse Resp BP Pulse Ox 36.6 C 109 H 12 95/67 L 93 06/24/17 07:27 06/24/17 08:11 06/24/17 08:11 06/24/17 07:27 06/24/17 08:11 Laboratory Results 06/21/17 09:56 06/23/17 05:24 06/23/17 06/24/17 06/25/17 05:59 05:59 05:59 Intake Total 1300 1700 Output Total 2750 3650 Balance -1450 -1950 Physical Exam - Physical Exam General Appearance: alert, no apparent distress EENT: PERRL/EOMI Neck: supple Respiratory: lungs clear, normal breath sounds, No respiratory distress, No accessory muscle use, No rales, No wheezing Cardiac/Chest: regular rate, rhythm, No edema Abdomen: non-tender, soft, No distended Skin: normal color, warm/dry, No cyanosis Lymphatic: no adenopathy Extremities: No pedal edema Neuro/Psych: alert, normal mood/affect ICD10 Worksheet Patient Problems: Problems Problem Status Onset Alcohol withdrawal Acute COPD exacerbation Acute Conjunctivitis Acute Hypoxia Acute Multiple rib fractures Acute Alcoholic ketoacidosis Acute Hypothermia Acute
[2017-06-24] MEDS ORDERED: IOPAMIDOL (ISOVUE 370) 100 ML BTL IV ONE (09:27)
--- NOTE | 2017-06-24 12:36 | ASMTCMCOM ---
CM Note CM Note Notes: Patient MST status but Hospitalist did not think he would make his appt at [facility] on Saturday. Contacted [facility] and cancelled appt. CM to obtain another appt when we know for sure when he will be discharged. ETOH res, tx given to patient. Date Signed: 06/24/2017 12:36 PM Electronically Signed By:Ricarda Loja LCSW
--- NOTE | 2017-06-24 17:42 | HOSPPROG ---
Hospitalist Progress Note Assessment/Plan: Assessment: 52 yo M p/w acute systolic CHF exacerbation c/b acute hypoxic respiratory failure, acute encephalopathy, and acute alcohol withdraw Plan: # Acute alcohol withdrawal. Evidenced by ongoing tachycardia, tremulousness - d/w Dr. Holman on team rounds, agrees w/ adjusting to med surg status, cont IV/ PO ativan PRN # Acute systolic CHF exacerbation. Right-side w/ Echo demonstrating RV overload , moderately reduced fxn and dilation - CTA neg for PE - unclear etiology, possibly 2/2 untreated pulm disease w/ ongoing smoking - net neg 1.9L o/n - stop lasix as he appears euvolemic at this time - recommend outpt sleep study # Acute hypoxic respiratory failure. Evidenced by SpO2 72% on RA, 83% on 5LPM, increased to 15LPM NRB mask, objective tachypnea and resp distress, transferred to ICU, 2/2 CHF and acute COPD exacerbation - stabilized w/ diuresis - weaning o2 requirements to 2LPM, trial on room air # Acute encephalopathy. Evidenced by global brain dysfunction characterized as poor concentration, disorientation worsening today, lethargy, delayed cognition , all of which are apparently acute changes from baseline, 2/2 metabolic effects of EtOH withdraw and hypoxia - maintain SpO2 > 90% - improving today, cognition seems to be at baseline # Acute rib fxr. Unclear onset, present on CXR, tenderness on exam - lidoderm patch # Acute atelectasis. Present on CXR, IS - PCT wnl, infxn unlikely # Metabolic alkalosis. Acute, contraction, 2/2 aggressive diuresis, resolved # Acute COPD exacerbation. S/p 5 days of pred and scheduled duonebs, now PRN and cont home Advair Diet. As itz PPx. High risk, lovenox 40 Code. Full Dispo. ADD 06/25 vs. 06/26, pending clinical stabilization of EtOH withdraw; case mgmt rescheduling his [facility] appt. Subjective: patient hopeful that he'll recover, engaging more in his own care today Objective: Vital Signs Temp Pulse Resp BP Pulse Ox 37.3 C 118 H 21 H 92/52 L 92 06/24/17 12:00 06/24/17 12:00 06/24/17 12:00 06/24/17 12:00 06/24/17 12:00 Laboratory Results 06/21/17 09:56 06/23/17 05:24 06/23/17 06/24/17 06/25/17 05:59 05:59 05:59 Intake Total 1300 1700 Output Total 2753 4233 400 [facility] -1450 -1950 -400 - Pending Discharge Pending Discharge Within 48 Hours: Yes Pending Discharge Date: 06/26/17 Pending Discharge Time: 11:00 - Physical Exam Constitutional: no apparent distress, not in pain, chronically ill appearing, uncomfortable, unkempt Cardiovascular: tachycardia, No systolic murmur, No irregularly irregular, No edema Respiratory: reduced air movement (bilat bases), No expiratory wheeze, No inspiratory crackles, No bronchial breath sounds, No respiratory distress Gastrointestinal: normoactive bowel sounds, soft, non-tender abdomen, no palpable masses, No distension Skin: other (numerous tattoos) Neurologic: AAOx3, other (mild UE tremulousness), No asterixes Psychiatric: not encephalopathic, thought process linear, anxious, flat affect, No agitated ICD10 Worksheet Patient Problems: Problems Problem Status Onset Hypothermia Acute Alcoholic ketoacidosis Acute Conjunctivitis Acute COPD exacerbation Acute Hypoxia Acute Alcohol withdrawal Acute Multiple rib fractures Acute
[2017-06-25] MEDS: OFLOXACIN 0.3% 5ML OPHT DROPS EACHEYE SCH ×6 (03:20→22:18)
[2017-06-25] MEDS: ENOXAPARIN 40 MG/0.4 ML SYR SC SCH ×2 (09:14→09:32)
[2017-06-25] MEDS: NICOTINE 21 MG/24 HR PATCH TD SCH (09:14)
[2017-06-25] MEDS: LIDOCAINE 4%/MENTHOL 1% PATCH TD SCH ×2 (09:15→09:32)
[2017-06-25] MEDS: LORazepam 1 MG TAB PO PRN ×3 (09:16→20:30)
[2017-06-25] MEDS: THIAMINE HCL 100 MG TAB PO SCH (09:16)
[2017-06-25] MEDS: POTASSIUM CL 10 MEQ TAB PO SCH (09:16)
[2017-06-25] MEDS: FLUTICASONE/SALMETER 250/50MCG DISKUS IH SCH ×2 (09:39→21:45)
[2017-06-25] MEDS: PATCH REMOVAL 1 EA PATCH TD SCH (14:00)
--- NOTE | 2017-06-25 15:09 | HOSPPROG ---
Hospitalist Progress Note Assessment/Plan: Assessment: 52 yo M p/w acute systolic CHF exacerbation c/b acute hypoxic respiratory failure, acute encephalopathy, and acute alcohol withdraw # Acute alcohol withdrawal- mild tremulousness today - HR comng down 90-100's - cont IV/PO ativan PRN - cont supportive care # Acute systolic CHF exacerbation. Right-side w/ Echo demonstrating RV overload , moderately reduced fxn and dilation CTA (personally reviewed and interpreted) neg for PE- rib fx and emphysema Seems clinically improved today - no need for ongoing lasix - outpt follow up after dc # Acute hypoxic respiratory failure- clinically improving -suspect 2/2 fractures and emphysema- oxygen saturations 91% on 2 L - cont supportive care - cont IS # Acute encephalopathy- 2/2 metabolic effects of EtOH withdraw and hypoxia - maintain SpO2 > 90% - improving today, cognition seems to be at baseline # Acute rib fxr. Unclear onset, present on CXR, tenderness on exam - lidoderm patch # Metabolic alkalosis. Acute, contraction, 2/2 aggressive diuresis, resolved # Acute COPD exacerbation. S/p 5 days of pred and scheduled duonebs, now PRN and cont home Advair Diet. As itz PPx. High risk, lovenox 40 Code. Full Dispo- > 2MN will need likely placement for safe disposition I have discussed the case with case management will need to begin investigating disposition options Subjective: hard to breath from pain Objective: Vital Signs Temp Pulse Resp BP Pulse Ox 36.7 C 125 H 16 98/64 L 91 L 06/25/17 11:28 06/25/17 14:26 06/25/17 11:28 06/25/17 11:28 06/25/17 14:26 Laboratory Results 06/21/17 09:56 06/25/17 05:16 06/24/17 06/25/17 06/26/17 05:59 05:59 05:59 Intake Total 1700 615 Output Total 3650 1000 150 Balance -1950 -385 -150 - Physical Exam Constitutional: chronically ill appearing, unkempt Eyes: anicteric sclera Ears, Nose, Mouth, Throat: dry mucous membranes Cardiovascular: regular rate and rhythym Respiratory: no respiratory distress, No expiratory wheeze Gastrointestinal: normoactive bowel sounds Genitourinary: no bladder fullness Skin: warm Musculoskeletal: No asymmetric calves Neurologic: other (tremulous) Psychiatric: No agitated Lymph, Heme, Immunologic: no cervical LAD ICD10 Worksheet Patient Problems: Problems Problem Status Onset Alcohol withdrawal Acute COPD exacerbation Acute Conjunctivitis Acute Hypoxia Acute Multiple rib fractures Acute Alcoholic ketoacidosis Acute Hypothermia Acute
--- NOTE | 2017-06-25 15:34 | ASMTCMCOM ---
CM Note CM Note Notes: CM spoke w/ Dr. Carlisle and Maricruz RN regarding d/c POC. Therapies are recommending SNF. CM met w/ pt for dispo planning. Pt is agreeable to going to SNF and saying the 30 days. ULTC-100 completed and sent to [facility]. Referrals sent to a number of SNFs. CM notified Yang Mitchell to have her start LTC application. CM to follow. Plan: SNF Date Signed: 06/25/2017 03:33 PM Electronically Signed By:HELENA Frost
[2017-06-26] MEDS: OFLOXACIN 0.3% 5ML OPHT DROPS EACHEYE SCH ×6 (03:12→21:36)
[2017-06-26] MEDS: NICOTINE 21 MG/24 HR PATCH TD SCH (09:33)
[2017-06-26] MEDS: ENOXAPARIN 40 MG/0.4 ML SYR SC SCH (09:34)
[2017-06-26] MEDS: THIAMINE HCL 100 MG TAB PO SCH (09:34)
[2017-06-26] MEDS: LIDOCAINE 4%/MENTHOL 1% PATCH TD SCH (10:16)
[2017-06-26] MEDS: FLUTICASONE/SALMETER 250/50MCG DISKUS IH SCH ×2 (10:24→21:31)
--- NOTE | 2017-06-26 13:40 | HOSPPROG ---
Hospitalist Progress Note Assessment/Plan: Assessment: 52 yo M p/w acute systolic CHF exacerbation c/b acute hypoxic respiratory failure, acute encephalopathy, and acute alcohol withdraw # Acute alcohol withdrawal- CIWA 0 overnight and this am, seems resolved # Acute systolic HF exacerbation. Echo demonstrating RV overload, moderately reduced fxn and dilation. Off lasix x2 d, more SOB, orthopneic, wt up 4 kg. CTA (personally reviewed and interpreted) neg for PE- rib fx and emphysema - check BNP - resume lasix 40 mg daily - follow I&O's, daily weights - outpt follow up after dc # Acute hypoxic respiratory failure - suspect 2/2 fractures and emphysema- oxygen saturations 93% on 1 L - wean O2 as able - cont IS # Acute encephalopathy - 2/2 metabolic effects of EtOH withdraw and hypoxia, cognition seems to be back to baseline # Acute rib fxr. Unclear onset, present on CXR, tenderness on exam - lidoderm patch # Metabolic alkalosis. Acute, contraction, 2/2 aggressive diuresis, resolved # Acute COPD exacerbation. S/p 5 days of pred and scheduled duonebs, now PRN and cont home Advair - cont prn nebs # VALENTINE pulmonary nodule - outpt f/u CT in 6-12 months # Homelessness Diet. As itz PPx. High risk, lovenox 40 Code. Full Dispo- cont inpt, CM working on dispo options, possibly SNF Subjective: Pt c/o SOB and LAYNE today. +orthopneic. Denies CP. No fevers/ chills. Ambulating. Objective: Vital Signs Temp Pulse Resp BP Pulse Ox 36.7 C 107 H 14 99/62 L 93 06/26/17 11:55 06/26/17 11:55 06/26/17 11:55 06/26/17 12:38 06/26/17 11:55 Laboratory Results 06/21/17 09:56 06/26/17 05:10 06/25/17 06/26/17 06/27/17 05:59 05:59 05:59 Intake Total 615 930 750 Output Total 1000 600 150 Balance -385 330 600 - Physical Exam Constitutional: no apparent distress Eyes: PERRL Ears, Nose, Mouth, Throat: moist mucous membranes Cardiovascular: regular rate and rhythym, JVD Respiratory: no respiratory distress, reduced air movement, other (faint basilar crackles) Skin: warm Musculoskeletal: full muscle strength Neurologic: AAOx3 Psychiatric: interacting appropriately ICD10 Worksheet Patient Problems: Problems Problem Status Onset Alcohol withdrawal Acute COPD exacerbation Acute Conjunctivitis Acute Hypoxia Acute Multiple rib fractures Acute Alcoholic ketoacidosis Acute Hypothermia Acute
[2017-06-26] MEDS ORDERED: FUROSEMIDE 40 MG TAB PO SCH (14:15)
--- NOTE | 2017-06-26 16:46 | ASMTCMCOM ---
CM Note CM Note Notes: Pt has been approved by [facility] for 30 day SNF stay. CM called [facility] and spoke to Mathew regarding referral. Mathew reports that he will review clinical info and get back to CM. TREVER spoke w/ Phyllis at [facility] and she reports that she can only accept pt if he has LTC Medicaid. Thus far 20 SNFs have said no. TREVER notified Viviana, support group manager of possibility that this will be a difficult to place pt. CM to follow. Plan: SNF/TBD Date Signed: 06/26/2017 04:46 PM Electronically Signed By:HELENA Frost
[2017-06-26] MEDS: PATCH REMOVAL 1 EA PATCH TD SCH (21:36)
[2017-06-27] MEDS: OFLOXACIN 0.3% 5ML OPHT DROPS EACHEYE SCH ×6 (03:10→22:01)
[2017-06-27] MEDS: IPRATROPIUM/ALBUTEROL 3 ML DEYVIAL IH SCH ×4 (09:40→20:53)
[2017-06-27] MEDS: FLUTICASONE/SALMETER 250/50MCG DISKUS IH SCH ×2 (09:40→20:53)
[2017-06-27] MEDS: THIAMINE HCL 100 MG TAB PO SCH (09:57)
[2017-06-27] MEDS: ENOXAPARIN 40 MG/0.4 ML SYR SC SCH (09:57)
[2017-06-27] MEDS: NICOTINE 21 MG/24 HR PATCH TD SCH (09:57)
[2017-06-27] MEDS: LIDOCAINE 4%/MENTHOL 1% PATCH TD SCH (09:58)
--- NOTE | 2017-06-27 15:09 | HOSPPROG ---
Hospitalist Progress Note Assessment/Plan: Assessment: 52 yo M p/w acute systolic CHF exacerbation c/b acute hypoxic respiratory failure, acute encephalopathy, and acute alcohol withdraw # Acute alcohol withdrawal- CIWA's 0, resolved - D/C CIWA # Acute systolic HF exacerbation. Echo demonstrating RV overload, moderately reduced fxn and dilation. S/P Lasix. Seems euvolemic today. BNP nl. CTA (personally reviewed and interpreted) neg for PE- rib fx and emphysema - d/c Lasix - follow I&O's, daily weights - outpt follow up # Acute hypoxic respiratory failure - suspect 2/2 fractures and emphysema- oxygen saturations 93% on 1 L - wean O2 as able, may require O2 at dc - cont IS # Acute COPD exacerbation. S/p 5 days of pred and scheduled duonebs - cont prn nebs, advair # Acute encephalopathy - 2/2 metabolic effects of EtOH withdraw and hypoxia, cognition seems back to baseline # Acute rib fxr. Unclear onset, present on CXR, tenderness on exam - lidoderm patch, ibuprofen # Metabolic alkalosis. Acute, contraction, 2/2 aggressive diuresis, resolved # VALENTINE pulmonary nodule - outpt f/u CT in 6-12 months # Homelessness Diet. As itz PPx. High risk, lovenox 40 Code. Full Dispo- cont inpt, anticipate date of discharge uncertain, will need SNF. CM working on options. Subjective: Pt feels well. Denies CP or SOB. Reports breathing treatment was helpful. Pain controlled. Objective: Vital Signs Temp Pulse Resp BP Pulse Ox 36.6 C 100 16 110/78 93 06/27/17 11:29 06/27/17 11:29 06/27/17 11:29 06/27/17 11:29 06/27/17 11:29 Laboratory Results 06/21/17 09:56 06/27/17 04:55 06/26/17 06/27/17 06/28/17 05:59 05:59 05:59 Intake Total 930 990 900 Output Total 600 1400 900 Balance 330 -410 0 - Physical Exam Constitutional: no apparent distress Eyes: PERRL Ears, Nose, Mouth, Throat: moist mucous membranes Cardiovascular: regular rate and rhythym Respiratory: no respiratory distress, clear to auscultation Gastrointestinal: normoactive bowel sounds, soft, non-tender abdomen Skin: warm Musculoskeletal: full muscle strength Neurologic: AAOx3 Psychiatric: interacting appropriately ICD10 Worksheet Patient Problems: Problems Problem Status Onset Alcohol withdrawal Acute COPD exacerbation Acute Conjunctivitis Acute Hypoxia Acute Multiple rib fractures Acute Alcoholic ketoacidosis Acute Hypothermia Acute
[2017-06-27] MEDS: PATCH REMOVAL 1 EA PATCH TD SCH (22:03)
[2017-06-28] MEDS: OFLOXACIN 0.3% 5ML OPHT DROPS EACHEYE SCH ×6 (01:22→20:55)
[2017-06-28] MEDS: IPRATROPIUM/ALBUTEROL 3 ML DEYVIAL IH SCH ×4 (05:59→21:09)
[2017-06-28] MEDS: THIAMINE HCL 100 MG TAB PO SCH (07:46)
[2017-06-28] MEDS: NICOTINE 21 MG/24 HR PATCH TD SCH (07:46)
[2017-06-28] MEDS: LIDOCAINE 4%/MENTHOL 1% PATCH TD SCH (07:48)
[2017-06-28] MEDS: ENOXAPARIN 40 MG/0.4 ML SYR SC SCH (07:50)
[2017-06-28] MEDS: FLUTICASONE/SALMETER 250/50MCG DISKUS IH SCH ×2 (10:50→21:12)
--- NOTE | 2017-06-28 14:02 | HOSPPROG ---
Hospitalist Progress Note Assessment/Plan: Assessment: 52 yo M p/w acute systolic CHF exacerbation c/b acute hypoxic respiratory failure, acute encephalopathy, and acute alcohol withdraw # Acute alcohol withdrawal- CIWA's 0, resolved # Acute systolic HF exacerbation. Echo demonstrating RV overload, moderately reduced fxn and dilation. S/P Lasix. Seems euvolemic today. BNP nl. CTA (personally reviewed and interpreted) neg for PE- rib fx and emphysema - d/c'd Lasix - follow I&O's, daily weights - outpt follow up # Acute hypoxic respiratory failure - suspect 2/2 fractures and emphysema- oxygen saturations 93% on 1 L - wean O2 as able, may require O2 at dc - cont IS # Acute COPD exacerbation. S/p 5 days of pred - schedule duonebs QID, cont advair # Acute encephalopathy - 2/2 metabolic effects of EtOH withdraw and hypoxia, cognition seems back to baseline # Acute rib fxr. Unclear onset, present on CXR, tenderness on exam - lidoderm patch, ibuprofen # Metabolic alkalosis. Acute, contraction, 2/2 aggressive diuresis, resolved # VALENTINE pulmonary nodule - outpt f/u CT in 6-12 months # Homelessness Diet. As itz PPx. High risk, lovenox 40 Code. Full Dispo- cont inpt, anticipate date of discharge uncertain, will need SNF. CM working on options. Subjective: Pt doing well. No complaints. Objective: Vital Signs Temp Pulse Resp BP Pulse Ox 36.6 C 111 H 18 110/70 85 L 06/28/17 07:39 06/28/17 10:28 06/28/17 07:39 06/28/17 07:39 06/28/17 10:28 Laboratory Results 06/21/17 09:56 06/27/17 04:55 06/27/17 06/28/17 06/29/17 05:59 05:59 05:59 Intake Total 990 1300 Output Total 1400 1500 Balance -410 -200 - Physical Exam Constitutional: no apparent distress Eyes: PERRL Ears, Nose, Mouth, Throat: moist mucous membranes Cardiovascular: regular rate and rhythym Respiratory: no respiratory distress, reduced air movement Gastrointestinal: normoactive bowel sounds, soft, non-tender abdomen Skin: warm Musculoskeletal: full muscle strength Neurologic: AAOx3 Psychiatric: interacting appropriately ICD10 Worksheet Patient Problems: Problems Problem Status Onset Alcohol withdrawal Acute COPD exacerbation Acute Conjunctivitis Acute Hypoxia Acute Multiple rib fractures Acute Alcoholic ketoacidosis Acute Hypothermia Acute
[2017-06-28] MEDS: ACETAMINOPHEN 325 MG TAB PO PRN (15:28)
--- NOTE | 2017-06-28 17:10 | ASMTCMCOM ---
CM Note CM Note Notes: Pt. denied admission to [facility] today. does not feel Pt. could safely d/c to senior living system at this time. Pt. needs O2 and uses a wheelchair. E[place] consulted with CM Service Superintendent regarding d/c plan. Plan: 1) Speak with Pt and his friends to explore possible places to stay 2) Apply for [facility]pite in [place] 3) Utilize [facility] respite as a last resort Date Signed: 06/28/2017 05:09 PM Electronically Signed By:Kala Mckee LCSW
[2017-06-28] MEDS: PATCH REMOVAL 1 EA PATCH TD SCH (20:55)
[2017-06-28] MEDS: LORazepam 1 MG TAB PO PRN (22:52)
[2017-06-29] MEDS: OFLOXACIN 0.3% 5ML OPHT DROPS EACHEYE SCH ×6 (03:18→21:12)
[2017-06-29] MEDS: IPRATROPIUM/ALBUTEROL 3 ML DEYVIAL IH SCH ×4 (06:21→21:37)
[2017-06-29] MEDS: THIAMINE HCL 100 MG TAB PO SCH (08:42)
[2017-06-29] MEDS: NICOTINE 21 MG/24 HR PATCH TD SCH (08:44)
[2017-06-29] MEDS: LIDOCAINE 4%/MENTHOL 1% PATCH TD SCH (08:46)
[2017-06-29] MEDS: ENOXAPARIN 40 MG/0.4 ML SYR SC SCH (08:48)
[2017-06-29] MEDS: FLUTICASONE/SALMETER 250/50MCG DISKUS IH SCH ×2 (11:01→21:38)
--- NOTE | 2017-06-29 16:14 | HOSPPROG ---
Hospitalist Progress Note Assessment/Plan: Subjective Follow-up on acute on chronic systolic heart failure and alcohol withdrawal Patient states he is committed to not drink alcohol any longer. He states he is feeling better in regards to his ability to ambulate without getting short of breath. No complaints of tremor or anxiety. Objective Vital signs as detailed below Physical exam General-patient is appears comfortable he is awake alert conversant no acute distress does not appear anxious or tremulous Cardiac-regular rate and rhythm no murmurs appreciated Lungs-Clear to auscultation without any significant wheezing respiratory effort is normal Abdomen-soft nontender nondistended normal bowel sounds no Lomeli catheter in place Extremities no significant pitting edema noted Labs as detailed below Assessment plan 1. Acute hypoxic respiratory failure-this appears resolved at the current time. Patient is on room air. We suspect the etiology is potentially be from sleep apnea and suspect that the hypoxia may have resulted in her right heart strain. 2. Acute systolic heart failure-patient had right heart strain noted on his initial echocardiogram. Suspect secondary to hypoxia. He has been adequately diuresed and appears euvolemic at the current time. He has been taken off of Lasix this point time. Monitor closely 3. Alcohol withdrawal-this appears resolved. Patient does have lorazepam as needed. 4. Rib fractures-pain appears well controlled with current pain regimen and place. 5. COPD -continue home inhalers. 6. Pulmonary nodule-patient will need outpatient follow-up in 3 months. 7. DVT prophylaxis-patient is on Lovenox. 8. Disposition-social Work working on placement. Objective: Vital Signs Temp Pulse Resp BP Pulse Ox 37.0 C 114 H 14 111/70 89 L 06/29/17 15:12 06/29/17 15:38 06/29/17 15:38 06/29/17 15:12 06/29/17 15:38 Laboratory Results 06/21/17 09:56 06/27/17 04:55 06/28/17 06/29/17 06/30/17 05:59 05:59 05:59 Intake Total 1300 500 Output Total 1500 Balance -200 500 ICD10 Worksheet Patient Problems: Problems Problem Status Onset Alcohol withdrawal Acute COPD exacerbation Acute Conjunctivitis Acute Hypoxia Acute Multiple rib fractures Acute Alcoholic ketoacidosis Acute Hypothermia Acute
[2017-06-29] MEDS: PATCH REMOVAL 1 EA PATCH TD SCH (20:06)
[2017-06-30] MEDS: LORazepam 1 MG TAB PO PRN ×2 (00:25→22:01)
[2017-06-30] MEDS: OFLOXACIN 0.3% 5ML OPHT DROPS EACHEYE SCH ×6 (01:33→21:56)
[2017-06-30] MEDS: IPRATROPIUM/ALBUTEROL 3 ML DEYVIAL IH SCH ×4 (06:16→20:48)
[2017-06-30] MEDS: NICOTINE 21 MG/24 HR PATCH TD SCH (08:25)
[2017-06-30] MEDS: THIAMINE HCL 100 MG TAB PO SCH (08:25)
[2017-06-30] MEDS: LIDOCAINE 4%/MENTHOL 1% PATCH TD SCH (08:27)
[2017-06-30] MEDS: ENOXAPARIN 40 MG/0.4 ML SYR SC SCH (08:28)
[2017-06-30] MEDS: FLUTICASONE/SALMETER 250/50MCG DISKUS IH SCH (10:17)
--- NOTE | 2017-06-30 15:12 | HOSPPROG ---
Hospitalist Progress Note Assessment/Plan: Subjective Follow-up on respiratory failure and alcohol abuse Patient states overall he is feeling fine today. He does note a rash on his left hand which she states has been there for several months. In regards to his COPD history he states he was using scheduled Advair at home as well as albuterol rescue inhaler throughout the daytime. He states that he needs to use his rescue inhaler most every day. Objective Vital signs as detailed below Physical exam General-patient appears comfortable awake alert conversant no acute distress. Cardiac-regular rate and rhythm no murmurs noted. Lungs-normal respiratory effort clear to auscultation without any significant wheezing. Abdomen-soft nontender nondistended. -no Lomeli catheter in place. Skin-he has a scaly appearing rash on the left hand which extends past the wrist. He also has dystrophic nails throughout the left hand. Labs as detailed below Assessment and plan 1. Acute right-sided heart failure-the patient's echocardiogram showed evidence of right heart strain likely secondary to hypoxia from underlying COPD. His diuretics were stopped 48 hr ago and he appears to be doing reasonably well at the current time. No evidence of pitting edema of the lower extremities. #. Rash-possibly fungal in etiology. I recommend Lotrisone cream BID. Follow response over the coming days. 2. Alcohol withdrawal-this appears resolved. He does have lorazepam as needed. 3. Rib fractures-pain appears well controlled with current pain regimen and place. 4. COPD-he does not appear to need oxygen chronically at the current time he seems mildly tremulous today on exam he is receiving long-acting beta agonist as well as DuoNeb nebulizers throughout the day. I recommend that we just his inhaler to Flovent twice a day and continue the DuoNeb nebulizers 4 times a day. 5. Pulmonary nodule-patient will need outpatient follow-up in 3 months for reassessment. 6. DVT prophylaxis-patient is on Lovenox. 8. Disposition-case management is working on placement options for him. He is homeless. Objective: Vital Signs Temp Pulse Resp BP Pulse Ox 36.9 C 110 H 14 98/60 L 90 L 06/30/17 07:50 06/30/17 10:18 06/30/17 10:18 06/30/17 07:50 06/30/17 10:18 Laboratory Results 06/21/17 09:56 06/27/17 04:55 06/29/17 06/30/17 07/01/17 05:59 05:59 05:59 Intake Total 500 475 Balance 500 475 ICD10 Worksheet Patient Problems: Problems Problem Status Onset Alcohol withdrawal Acute COPD exacerbation Acute Conjunctivitis Acute Hypoxia Acute Multiple rib fractures Acute Alcoholic ketoacidosis Acute Hypothermia Acute
--- NOTE | 2017-06-30 16:42 | ASMTCMCOM ---
CM Note CM Note Notes: CM met with patient, preferred name is [facility]. CM shared we are still looking for placement. He states he does not have any friends to possibly discharge to. CM informed patient we will be sending [facility] Respite referral. Patient stated he was thinking of calling the [place] [facility] to see if they can help him out. D/C Plan: Continuing to search for placement. CM available for ongoing CM needs. Current D/C Plan: Difficult to place, attempting respite options. Date Signed: 06/30/2017 04:41 PM Electronically Signed By:Abena Chen
[2017-06-30] MEDS: FLUTICASONE HFA 220 MCG MDI IH SCH (20:58)
[2017-06-30] MEDS: PATCH REMOVAL 1 EA PATCH TD SCH (21:56)
[2017-06-30] MEDS: ACETAMINOPHEN 325 MG TAB PO PRN (22:01)
[2017-06-30] MEDS: CLOTRIMAZOLE/BETAMET DIPROP 15 GM CRTUBE TP SCH (22:26)
[2017-07-01] MEDS: OFLOXACIN 0.3% 5ML OPHT DROPS EACHEYE SCH ×6 (03:10→22:49)
[2017-07-01] MEDS: IPRATROPIUM/ALBUTEROL 3 ML DEYVIAL IH SCH ×2 (06:05→10:36)
[2017-07-01] MEDS: ENOXAPARIN 40 MG/0.4 ML SYR SC SCH (09:19)
[2017-07-01] MEDS: NICOTINE 21 MG/24 HR PATCH TD SCH (09:20)
[2017-07-01] MEDS: THIAMINE HCL 100 MG TAB PO SCH (09:23)
[2017-07-01] MEDS: ACETAMINOPHEN 325 MG TAB PO PRN ×2 (09:23→22:53)
[2017-07-01] MEDS: LIDOCAINE 4%/MENTHOL 1% PATCH TD SCH (09:24)
[2017-07-01] MEDS: CLOTRIMAZOLE/BETAMET DIPROP 15 GM CRTUBE TP SCH ×2 (09:24→21:39)
[2017-07-01] MEDS: FLUTICASONE HFA 220 MCG MDI IH SCH (09:29)
[2017-07-01] MEDS: IPRATROPIUM HFA INHALER IH SCH ×2 (14:21→15:23)
--- NOTE | 2017-07-01 15:27 | HOSPPROG ---
Hospitalist Progress Note Assessment/Plan: Subjective Follow-up on respiratory failure and alcohol abuse Patient states his rash feels a lot better today as compared to yesterday. The rash in the left hand had been present he stated for approximately a year. I spent some time today discussing his inhaler regimen with him. He was receiving both Advair as well as scheduled DuoNeb nebulizers I suspect the albuterol may have been making him somewhat tremulous. We discussed continuing with Advair and using scheduled Atrovent but preserving albuterol for as needed use. He seemed agreeable to these changes and I think it will simplify his regimen. Objective but Vital signs as detailed below Physical exam General-patient appears comfortable he is awake alert conversant no acute distress. I did observe him walking with therapy in the [place]. Cardiac-regular rate and rhythm no murmurs. Lungs-normal respiratory effort clear to auscultation without any significant wheezing noted. Abdomen-soft nontender nondistended. -no Lomeli catheter in place. Skin-the scaly rash in his left hand is still present but the erythema seems to be lessened today but still somewhat scaly. Stable dystrophic nails. Labs as detailed below Assessment and plan 1. Acute right-sided heart failure-patient appears to be euvolemic and he has been off of diuretics over the past several days. I suspect that he is chronically hypoxic from underlying COPD which resulted in the right-sided heart failure. 2. Chronic hypoxic respiratory failure secondary to COPD-he was not on oxygen prior to coming to the hospital but I suspect he may need chronic oxygen he is currently on small amount here in the hospital. His oxygen saturations were marginal 1 I put him on room air today. Continue with Advair 250/50 twice a day along with Atrovent 4 times a day. [place] albuterol for as needed use. 3. Rash-possibly fungal in origin. I have him on Lotrisone cream currently. If continued improvement to the erythema would likely could stop the topical steroid and continue with the topical antifungal. 4. Tobacco use-I discussed with dense today reducing his nicotine patch from 21 mg to 14 mg. He was initially reluctant but agreeable when I told him he had nicotine gum available to him as well. 5. Alcohol withdrawal-this appears resolved. Patient stated he does not intend to drink alcohol again in the future. 6. Pulmonary nodule-this will need outpatient follow-up in 3-6 months. 7. DVT prophylaxis-Lovenox. 8. Disposition-I reviewed with case management over the weekend. We are looking at a possible discharge location in [place]. The patient is homeless. Objective: Vital Signs Temp Pulse Resp BP Pulse Ox 36.3 C 96 18 101/68 88 L 07/01/17 08:00 07/01/17 10:35 07/01/17 10:35 07/01/17 12:03 07/01/17 12:03 Laboratory Results 06/21/17 09:56 06/27/17 04:55 06/30/17 07/01/17 07/02/17 05:59 05:59 05:59 Intake Total 475 150 Output Total 100 Balance 475 50 ICD10 Worksheet Patient Problems: Problems Problem Status Onset Alcohol withdrawal Acute COPD exacerbation Acute Conjunctivitis Acute Hypoxia Acute Multiple rib fractures Acute Alcoholic ketoacidosis Acute Hypothermia Acute
--- NOTE | 2017-07-01 16:53 | ASMTCMCOM ---
CM Note CM Note Notes: Met with patient regarding application for medical respite.[facility]. Patient has some barriers to being accepted but CM will advocate as much as possible. CM to follow. Date Signed: 07/01/2017 04:52 PM Electronically Signed By:Rivka Bryant LCSW
[2017-07-01] MEDS: IPRATROPIUM BROMIDE 0.5 MG/2.5 ML DEYVIAL IH SCH (20:35)
[2017-07-01] MEDS: FLUTICASONE/SALMETER 250/50MCG DISKUS IH SCH (20:37)
[2017-07-01] MEDS: PATCH REMOVAL 1 EA PATCH TD SCH (21:38)
[2017-07-01] MEDS: LORazepam 1 MG TAB PO PRN (22:48)
[2017-07-02] MEDS: OFLOXACIN 0.3% 5ML OPHT DROPS EACHEYE SCH ×6 (00:13→21:59)
[2017-07-02] MEDS: IPRATROPIUM BROMIDE 0.5 MG/2.5 ML DEYVIAL IH SCH (05:18)
[2017-07-02] MEDS ORDERED: LORazepam 1 MG TAB PO PRN (06:38)
[2017-07-02] MEDS: ENOXAPARIN 40 MG/0.4 ML SYR SC SCH (08:48)
[2017-07-02] MEDS: LIDOCAINE 4%/MENTHOL 1% PATCH TD SCH (08:49)
[2017-07-02] MEDS: THIAMINE HCL 100 MG TAB PO SCH (08:52)
[2017-07-02] MEDS: CLOTRIMAZOLE/BETAMET DIPROP 15 GM CRTUBE TP SCH ×2 (08:52→22:00)
[2017-07-02] MEDS: NICOTINE POLACRILEX 2 MG GUM B PRN (08:59)
[2017-07-02] MEDS: NICOTINE 14 MG/24 HR PATCH TD SCH (08:59)
[2017-07-02] MEDS: TIOTROPIUM INHALER 18 MCG/DOSE 5 DOSE/MDI IH SCH (09:29)
[2017-07-02] MEDS: FLUTICASONE/SALMETER 250/50MCG DISKUS IH SCH ×2 (09:29→22:26)
--- NOTE | 2017-07-02 10:47 | ASMTCMCOM ---
CM Note CM Note Notes: Patient's application for medical respite faxed to [facility]. The paper copy and confirmation are in the back of patient's medical chart. Called the referral line and left a message so I can discuss the referral and advocate for patient to reduce barriers.Awaiting return call. Over 20 SNF's have turned patient down. It is unlikely we will get SNF placement for patient. CM will follow. Date Signed: 07/02/2017 10:46 AM Electronically Signed By:Rivka Bryant LCSW
--- NOTE | 2017-07-02 12:49 | HOSPPROG ---
Hospitalist Progress Note Assessment/Plan: Assessment: 52 yo M p/w acute systolic CHF exacerbation c/b acute hypoxic respiratory failure, acute encephalopathy, and acute alcohol withdraw # Acute alcohol withdrawal- CIWA's 0, resolved # Acute systolic HF exacerbation. Echo demonstrating RV overload, moderately reduced fxn and dilation. S/P Lasix. Seems euvolemic today. BNP nl. CTA (personally reviewed and interpreted) neg for PE- rib fx and emphysema - outpt follow up # Acute hypoxic respiratory failure - 2/2 fractures and emphysema - oxygen saturations 93% on 1 L - wean O2 as able, may require O2 at dc - cont IS # Acute COPD exacerbation. S/p 5 days of pred - transition QID atrovent to spiriva in anticipation of discharge - cont advair, prn albuterol # Acute encephalopathy - 2/2 metabolic effects of EtOH withdraw and hypoxia, now back to baseline # Acute rib fxr. Unclear onset, present on CXR, tenderness on exam - lidoderm patch, ibuprofen # Metabolic alkalosis. Acute, contraction, 2/2 aggressive diuresis, resolved # VALENTINE pulmonary nodule - outpt f/u CT in 6-12 months # Homelessness Diet. As itz PPx. High risk, lovenox 40 Code. Full Dispo- cont inpt, anticipate date of discharge uncertain, will need SNF. CM working on options, possibly medical respite. O2 need is barrier to discharging to the street. Subjective: pt doing fine. denies CP or SOB. no wheezing. no cough. ambulating. Objective: Vital Signs Temp Pulse Resp BP Pulse Ox 36.7 C 89 16 103/71 90 L 07/02/17 08:00 07/02/17 08:00 07/02/17 08:00 07/02/17 08:00 07/02/17 08:00 Laboratory Results 06/21/17 09:56 06/27/17 04:55 07/01/17 07/02/17 07/03/17 05:59 05:59 05:59 Intake Total 150 Output Total 100 1600 Balance 50 -1600 - Physical Exam Constitutional: no apparent distress Eyes: PERRL, EOMI Cardiovascular: regular rate and rhythym Respiratory: no respiratory distress, reduced air movement Gastrointestinal: normoactive bowel sounds, soft, non-tender abdomen Skin: warm Musculoskeletal: full muscle strength Neurologic: AAOx3 Psychiatric: interacting appropriately ICD10 Worksheet Patient Problems: Problems Problem Status Onset Alcohol withdrawal Acute COPD exacerbation Acute Conjunctivitis Acute Hypoxia Acute Multiple rib fractures Acute Alcoholic ketoacidosis Acute Hypothermia Acute
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
[2017-07-02] MEDS: ACETAMINOPHEN 325 MG TAB PO PRN (21:59)
[2017-07-02] MEDS: PATCH REMOVAL 1 EA PATCH TD SCH (22:00)
[2017-07-03] MEDS: OFLOXACIN 0.3% 5ML OPHT DROPS EACHEYE SCH ×4 (03:17→15:30)
[2017-07-03 09:35] VITALS: BP 101/66
[2017-07-03] MEDS: THIAMINE HCL 100 MG TAB PO SCH (09:35)
[2017-07-03] MEDS: LIDOCAINE 4%/MENTHOL 1% PATCH TD SCH (09:37)
[2017-07-03] MEDS: ENOXAPARIN 40 MG/0.4 ML SYR SC SCH (09:38)
[2017-07-03] MEDS: NICOTINE 14 MG/24 HR PATCH TD SCH (09:39)
[2017-07-03] MEDS: CLOTRIMAZOLE/BETAMET DIPROP 15 GM CRTUBE TP SCH ×2 (09:40→09:44)
[2017-07-03] MEDS: FLUTICASONE/SALMETER 250/50MCG DISKUS IH SCH (10:25)
[2017-07-03] MEDS: TIOTROPIUM INHALER 18 MCG/DOSE 5 DOSE/MDI IH SCH (10:26)
--- NOTE | 2017-07-03 10:39 | PDHOMEO2F ---
Home Oxygen Face to Face Home Orders: I certify that a physician or a nurse practitioner or physician's night assistant has had a zcar-dm-wwse encounter with this patient on the date of this order due to the diagnosis listed, which relates to the primary reason the patient requires home oxygen. Alternative treatments have been tried, or considered, and deemed ineffective. It is anticipated that supplemental oxygen will result in improvement with treatment. Home oxygen qualifying diagnosis: COPD SpO2 on room air (%): 85% Frequency of home oxygen needed: continuous Home oxygen liters per minute: 2 LPM Home oxygen delivery device: nasal cannula Concentrator: Yes E-tanks for mobility and back up: Yes If ordering portable O2, is the patient mobile in the home?: Yes I certify that, based on these findings, the home oxygen is medically necessary for this patient for the following length of time. Length of time home oxygen needed: 99 years
--- NOTE | 2017-07-03 12:16 | PDHOMEO2F ---
Home Oxygen Face to Face Home Orders: I certify that a physician or a nurse practitioner or physician's research assistant professor has had a xahn-dp-jfbf encounter with this patient on the date of this order due to the diagnosis listed, which relates to the primary reason the patient requires home oxygen. Alternative treatments have been tried, or considered, and deemed ineffective. It is anticipated that supplemental oxygen will result in improvement with treatment. Home oxygen qualifying diagnosis: COPD SpO2 on room air (%): 85% Frequency of home oxygen needed: continuous Home oxygen liters per minute: 2 LPM Home oxygen delivery device: nasal cannula Concentrator: Yes E-tanks for mobility and back up: Yes If ordering portable O2, is the patient mobile in the home?: Yes I certify that, based on these findings, the home oxygen is medically necessary for this patient for the following length of time. Length of time home oxygen needed: 99 years Home Oxygen Comment: O2 portable with an oxygen conserving device
--- NOTE | 2017-07-03 14:53 | ASMTCMCOM ---
CM Note CM Note Notes: Today Ermelinda met in the room with Pt. Explained to Pt. that although he was approved to utilize his Medicaid benefits for a LTC stay, we could not find a detention to admit him. Also, explained that Pt. was not accepted to the [facility] medical respite program. Pt. to choose today between [facility] for the Homeless bed and d/cing independently. After some thinking, Pt. chose to d/c independently. Pt. uses his girlfriend's address as a home base but he cannot stay there due to her living in Section 8 housing. CM to provide cab voucher for him to d/c safely with all of his belongings. CM provided Pt. a walker found by CM general surgery physician assistant. Also provided a letter with Pt's dates of admission in case he needs them for his social security disability application. New home O2 arranged by RT. [facility] made by Ermelinda for 07/05/17 at noon. Show time of 11:45am. Pt. to see JAIMEE Mcnair in the purple pod. Meds sent to room via [facility]. Date Signed: 07/03/2017 02:52 PM Electronically Signed By:Kala Mckee LCSW
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
--- NOTE | 2017-07-03 16:46 | GDS ---
[f rep st] DISCHARGE SUMMARY DISCHARGE DIAGNOSES: 1. Acute alcohol withdrawal, resolved. 2. Acute systolic right heart failure exacerbation, status post diuresis. 3. Msvjs-xd-yxsjrpz hypoxemic respiratory failure secondary to chronic obstructive pulmonary disease . 4. Acute chronic obstructive pulmonary disease exacerbation, stable on 2 L of oxygen per minute. 5. Acute encephalopathy secondary to alcohol withdrawal. 6. Hypoxia, resolved. 7. Acute rib fractures. 8. Left upper lobe pulmonary nodule which will require outpatient followup CT scan in 6-12 months. 9. Homelessness. CONSULTANTS: 1. Dr. Angel Godoy, Pulmonary Critical Care. HISTORY: For details, please see the history and physical dated June 19, 2017. In brief. The patie thania is a 52-year-old homeless male with history of alcohol dependence, who presents to the emergency d epartment after his friends found him lying down in a parking lot. He has apparently been mostly whe elchair-bound due to gait instability, and it sounds like he gets quite short of breath with any acti vity. He does have a history of chronic COPD, tobacco abuse, and ongoing alcohol abuse. He was note d to be hypoxic on arrival with right-sided rib fractures and concern for impending withdrawal and wa s admitted to the hospital for further management. HOSPITAL COURSE: The patient was admitted to the med/surg unit. He was requiring 3 L of oxygen on a rrival. He was thought to be volume overloaded, and his echocardiogram showed increased right ventri cular volume and pressure overload, likely secondary to chronic hypoxemia, as he had not been using o xygen on the street. He was aggressively diuresed and maintained euvolemia off Lasix for several day s prior to discharge. It is thought his right heart failure is secondary to his chronic COPD. He re ceived a steroid burst and was continued on DuoNeb. This was transitioned to Spiriva. He was also s tarted on Advair along with p.r.n. albuterol. He has continued to require 1-2 L oxygen with hypoxemi a in room air with any type of activity. He did require inpatient management of his alcohol withdraw al, which was resolved at the time of discharge. At this point, he is 2 weeks sober. Valiant attemp ts were made by our case management staff in attempts to place him in a penitentiary facility as r ecommended by his therapy evaluations. Unfortunately, he was declined by every penitentiary facil ity our therapeutic case manager contacted. We then attempted to place him in medical respite care; he was also declined acceptance for this type of bed. Ultimately, we had no further option but to discharge him back to the penitentiary. He will require home oxygen on discharge and understands the importance of cont inuing oxygenation to prevent hypoxemia and worsening heart failure. DISPOSITION: Patient is discharged to the homeless penitentiary in stable condition. FOLLOWUP: 1. Patient is to follow up with the [facility] in 2-3 days. Patient has a followup appointment with [facility] Wednesday, July 05, 2017 at noon with JAIMEE Mcnair. 2. He needs a repeat chest CT in approximately 6 months to follow up on his pulmonary nodule. DISCHARGE MEDICATIONS: Please see [facility] for updated outpatient medication list. MEDICATION LIST ON DISCHARGE: Includes: 1. Home oxygen at 2 L/minute with a portable O2 concentrator. 2. Advair 250/50 one puff twice daily (#1/no refills). 3. Thiamin 100 mg p.o. daily (#30/no refills). 4. Spiriva 18 mcg inhaled daily. 5. Nicoderm 14 mg transdermal patch (#14/no refills). 6. Lotrimin cream b.i.d. 15 g. 7. Albuterol inhaler 1-2 puffs inhaled q.4 hours p.r.n. (#1/no refills). /[id number]
== END 2017-07-03 15:00 | disposition home or self-care (01) | DRG 133 ==
LOC: OBSVTOIN 21:40 → F3E 22:07 → F2N 06-20 17:59 → F3E 06-25 06:01
PROVIDERS: ADMIT Student in an Organized Health Care Education/Training Program; ATTEND Hospitalist
PROC: HZ2ZZZZ Detoxification Services for Substance Abuse Treatment (ICD-10-PCS; principal; 2017-06-19)
DX: J96.21 Acute and chronic respiratory failure with hypoxia (principal); J44.1 Chronic obstructive pulmonary disease with (acute) exacerbation; F10.221 Alcohol dependence with intoxication delirium; F10.231 Alcohol dependence with withdrawal delirium; G31.2 Degeneration of nervous system due to alcohol; I50.21 Acute systolic (congestive) heart failure; E87.70 Fluid overload, unspecified; A54.31 Gonococcal conjunctivitis; E87.3 Alkalosis; I27.29 Other secondary pulmonary hypertension; S22.41XA Multiple fractures of ribs, right side, initial encounter for closed fracture; W19.XXXA Unspecified fall, initial encounter; R00.0 Tachycardia, unspecified; E86.0 Dehydration; F17.210 Nicotine dependence, cigarettes, uncomplicated; R91.1 Solitary pulmonary nodule; R21 Rash and other nonspecific skin eruption; R26.9 Unspecified abnormalities of gait and mobility; D75.89 Other specified diseases of blood and blood-forming organs; F41.8 Other specified anxiety disorders; Y90.8 Blood alcohol level of 240 mg/100 ml or more; Z59.0 Homelessness; Z79.51 Long term (current) use of inhaled steroids
CPT/HCPCS: 82607-90; 82947-QW; 96365; 97116-GP; 97162-GP; 97166-GO; 97530-GO; 97530-GP; 97535-GO; G0480; G8978-GP-CJ; G8978-GP-CK; G8979-GP-CI; J0696; J1650; J1940; J2060; J2930; J3411; J7512; Q9967

== ENCOUNTER 2017-09-10 11:26 | Emergency (ER) | payer MEDICAID ==
[2017-09-10 11:38] VITALS: BP 134/80
[2017-09-10 12:02] LABS: PLATELET COUNT 100 10^3/uL (150-400)
--- NOTE | 2017-09-10 12:15 | EDPHY ---
H & P Stated Complaint: sob Time Seen by Provider: 09/10/17 12:14 HPI/ROS: Chief Complaint: Weakness, shortness of breath, fatigue HPI: 52-year-old homeless male with a history of chronic alcoholism was recently admitted 2 months ago for being found down and alcohol withdrawal. Patient has chronic underlying lung disease. He has continued to drink alcohol. He says that he has had fatigue and shortness of breath since he was discharged from the hospital 2 months ago. He states that this seems a little bit worse over the last 2 weeks. He did see his primary care physician 1 week ago. He he says she told him that if he does not quit drinking and smoking that he is going to . He has continued to smoke. His last alcohol was this morning. He is here requesting inpatient treatment for alcohol withdrawal. He he states that he does not want to go to [facility] because he does not like it there and he feels that they do not do anything for him. ROS: 10 point Review of Systems is negative except as noted in the HPI. Social History: Positive smoking, daily heavy alcohol Family History: non-contributory Physical Exam: Gen: Awake, Alert, No Distress HEENT: Nose: no rhinorrhea Eyes: PERRLA, EOMI Mouth: Moist mucosa Neck: Supple, no JVD Chest: nontender, diffusely diminished lung zones, no focal rales or rhonchi Heart: S1, S2 normal, no murmur Abd: Soft, non-tender, no guarding Back: no CVA tenderness, no midline tenderness Ext: no edema, non-tender Skin: no rash Neuro: CN II-XII intact, Sensation grossly intact, Strength 5/5 in bilateral upper and lower extremities - Personal History Current Tetanus/Diphtheria Vaccine: Unsure Current Tetanus Diphtheria and Acellular Pertussis (TDAP): Unsure - Medical/Surgical History Hx Asthma: No Hx Chronic Respiratory Disease: No Hx Diabetes: No Hx Cardiac Disease: No Hx Renal Disease: No Hx Cirrhosis: No Hx Alcoholism: Yes Hx HIV/AIDS: No Hx Splenectomy or Spleen Trauma: No Other PMH: Anxiety, COPD, ETOH abuse, withdrawl seizures - Social History Smoking Status: Heavy smoker Constitutional: Initial Vital Signs Temperature (C) 36.7 C 09/10/17 11:34 Heart Rate 94 09/10/17 11:34 Respiratory Rate 18 09/10/17 11:34 Blood Pressure 134/80 H 09/10/17 11:34 O2 Sat (%) 91 L 09/10/17 11:34 O2 Delivery Mode Room Air O2 (L/minute) 2 Allergies/Adverse Reactions: No Known Allergies Allergy (Verified 01/13/15 07:24) Home Medications: Medication Instructions Recorded Fluticasone/Salmeter 250/50Mcg 1 puffs IH BID 04/19/17 [Advair 250/50 (*)] Albuterol [Proventil Inhaler HFA 1 - 2 puffs IH Q4H PRN #1 mdi 07/03/17 (*)] Clotrimazole/Betamet Diprop 1 naida TP BID #15 cream 07/03/17 [Lotrisone Cream (*)] Fluticasone/Salmeter 250/50Mcg 1 puffs IH BID #1 disk 07/03/17 [Advair 250/50 (*)] Nicotine [Nicoderm Cq 14 mg (*)] 14 mg TD DAILY #14 patch 07/03/17 Thiamine HCl [Vitamin B-1] 100 mg PO DAILY #30 tab 07/03/17 Tiotropium Inhaler [Spiriva 18 mcg IH DAILY #1 mdi 07/03/17 Handihaler] Medical Decision Making - Diagnostics Imaging Results: Imaging Impressions Chest X-Ray 09/10/17 11:54 Impression: 1. Large lung volumes consistent with emphysema +- airways disease. 2. Alpha-1 antitrypsin deficiency versus basilar pulmonary emboli. Results discussed with Dr. Dorado at 12:42 PM. ED Course/Re-evaluation: Patient presenting with some dyspnea as ends discharge 2 months ago persistently smoking and drinking alcohol. He stays really he is here because he wants detox. Initially he was refusing the [facility] but I have explained to him that this is the most appropriate place for him if he truly wants to quit drinking. I told he will get medications if he goes to the [facility]. Patient is in agreement with this plan. I do not see any evidence of acute cardiac or respiratory process at this time. He is at his baseline. He is ambulating unassisted in the emergency department without any difficulty. - Data Points Laboratory Results: Laboratory Results 09/10/17 11:24 09/10/17 11:24 09/10/17 09/10/17 11:24 11:24 WBC 4.76 10^3/uL 10^3/uL (3.80-9.50) RBC 4.93 10^6/uL 10^6/uL (4.40-6.38) Hgb 17.4 g/dL g/dL (13.7-17.5) Hct 48.7 % % (40.0-51.0) MCV 98.8 fL fL (81.5-99.8) MCH 35.3 pg H pg (27.9-34.1) MCHC 35.7 g/dL g/dL (32.4-36.7) RDW 15.6 % H % (11.5-15.2) Plt Count 100 10^3/uL L 10^3/uL (150-400) MPV 10.0 fL fL (8.7-11.7) Neut % (Auto) 45.1 % % (39.3-74.2) Lymph % (Auto) 38.9 % % (15.0-45.0) [place] % (Auto) 12.2 % % (4.5-13.0) Eos % (Auto) 1.3 % % (0.6-7.6) Baso % (Auto) 1.9 % H % (0.3-1.7) Nucleat RBC Rel Count 0.0 % % (0.0-0.2) Absolute Neuts (auto) 2.15 10^3/uL 10^3/uL (1.70-6.50) Absolute Lymphs (auto) 1.85 10^3/uL 10^3/uL (1.00-3.00) Absolute Monos (auto) 0.58 10^3/uL 10^3/uL (0.30-0.80) Absolute Eos (auto) 0.06 10^3/uL 10^3/uL (0.03-0.40) Absolute Basos (auto) 0.09 10^3/uL 10^3/uL (0.02-0.10) Absolute Nucleated RBC 0.00 10^3/uL 10^3/uL (0-0.01) Immature Gran % 0.6 % % (0.0-1.1) Immature Gran # 0.03 10^3/uL 10^3/uL (0.00-0.10) Sodium 142 mEq/L mEq/L (135-145) Potassium 3.7 mEq/L mEq/L (3.3-5.0) Chloride 100 mEq/L mEq/L (97-110) Carbon Dioxide 28 mEq/l mEq/l (22-31) Anion Gap 14 mEq/L mEq/L (8-16) BUN 8 mg/dL mg/dL (7-23) Creatinine 0.6 mg/dL L mg/dL (0.7-1.3) Estimated GFR > 60 Glucose 77 mg/dL mg/dL (70-100) Calcium 8.3 mg/dL L mg/dL (8.5-10.4) Troponin I < 0.012 ng/mL ng/mL (0.000-0.034) Departure - Departure Disposition: Home, Routine, Self-Care Clinical Impression: Alcohol withdrawal Condition: Good Instructions: Alcohol Withdrawal (ED), Chlordiazepoxide (By mouth) Additional Instructions: Please seek help to discontinue smoking and drinking alcohol. Return to the emergency department for increasing shortness of breath, chest pain, passing out, or any other concerns. Referrals: NONE *PRIMARY CARE P,. [Primary Care Provider] - As per Instructions
[2017-09-10] MEDS ORDERED: CHLORDIAZEPOXIDE 25MG PREPK#6 BTL TAKEHOME ONE (13:06)
== END 2017-09-10 13:22 | disposition left against medical advice (07) ==
LOC: EDUNIT#
DX: F10.239 Alcohol dependence with withdrawal, unspecified (principal); J44.9 Chronic obstructive pulmonary disease, unspecified; F17.200 Nicotine dependence, unspecified, uncomplicated

== ENCOUNTER 2017-11-23 23:11 | Emergency (ER) | payer MEDICAID ==
[2017-11-23] MEDS ORDERED: NS 1,000 ML IV ONE (23:13)
[2017-11-23] MEDS ORDERED: methylPREDNISolone SOD SUCC 125 MG/2 ML VIAL IVP ONE (23:14)
[2017-11-23] MEDS ORDERED: IPRATROPIUM/ALBUTEROL 3 ML DEYVIAL IH ONE (23:14)
--- NOTE | 2017-11-23 23:16 | EDPHY ---
H & P Time Seen by Provider: 11/23/17 23:14 HPI/ROS: HPI CHIEF COMPLAINT: Alcohol intoxication, COPD HISTORY OF PRESENT ILLNESS: 52-year-old male, history of asthma, COPD, smokes tobacco daily half a pack to 1 pack per day, additionally is homeless and drinks alcohol. Presents emergency room with alcohol intoxication and shortness of breath and wheezing. States that he felt short of breath. Was wheezing and coughing. Could not catch his breath so 911 was called. Denies any chest pain. Past Medical History: COPD, asthma, daily tobacco use, daily alcohol use Past Surgical History: No recent surgery Social History: Homeless. Daily tobacco and alcohol use. Family History: Noncontributory ROS REVIEW OF SYSTEMS: 10 Systems were reviewed and negative with the exception of the elements mentioned in the history of present illness. Exam Constitutional intoxicated, smells of alcohol, triage nursing summary reviewed , vital signs reviewed, awake/alert. Eyes normal conjunctivae and sclera, EOMI, PERRLA. HENT normal inspection, atraumatic, moist mucus membranes, no epistaxis, neck supple/ no meningismus, no raccoon eyes. Respiratory decreased breath sounds bilaterally with faint wheezing. Cardiovascular rate normal, regular rhythm, no murmur, no edema, distal pulses normal. Gastrointestinal soft, non-tender, no rebound, no guarding, normal bowel sounds, no distension, no pulsatile mass. Genitourinary no CVA tenderness. Musculoskeletal no midline vertebral tenderness, full range of motion, no calf swelling, no tenderness of extremities, no meningismus, good pulses, neurovascularly intact. Skin pink, warm, & dry, no rash, skin atraumatic. Neurologic awake, alert and oriented x 3, AAOx3, moves all 4 extremities equally, motor intact, sensory intact, CN II-XII intact, normal cerebellar, normal vision, intoxicated, slurring speech, Psychiatric normal mood/affect. Heme/Lymph/Immune no lymphadenopathy. Differential Diagnosis: Includes but is not limited to in a particular order COPD exacerbation, pneumonia, reactive airway disease, pneumothorax, bronchitis , alcohol intoxication Medical Decision Making: Plan for this patient IV establishment with blood draw , chest x-ray, DuoNeb breathing treatment, IV Solu-Medrol, IV fluid bolus, check serum alcohol level. EKG and re-evaluate. Re-evaluation: CXR: nodular opacifications. repeat chest xray in 4 to 6 weeks. EKG interpretation by me on record in [facility] system. Impression time of EKG 2332: Sinus tach 102 PVC present. No acute ischemic change. Serum alcohol level 307. 0120: Patient left the emergency room against medical advice. He walked out. Source: Patient, EMS - Medical/Surgical History Hx Asthma: No Hx Chronic Respiratory Disease: No Hx Diabetes: No Hx Cardiac Disease: No Hx Renal Disease: No Hx Cirrhosis: No Hx Alcoholism: Yes Hx HIV/AIDS: No Hx Splenectomy or Spleen Trauma: No Other PMH: Anxiety, COPD, ETOH abuse, withdrawl seizures - Social History Smoking Status: Heavy smoker Constitutional: Initial Vital Signs Temperature (C) 36.8 C 11/23/17 23:34 Heart Rate 102 H 11/23/17 23:34 Respiratory Rate 20 11/23/17 23:34 Blood Pressure 118/80 11/23/17 23:34 O2 Sat (%) 97 11/23/17 23:34 O2 Delivery Mode Nasal Cannula O2 (L/minute) 3 Allergies/Adverse Reactions: No Known Allergies Allergy (Verified 11/23/17 23:37) Home Medications: Medication Instructions Recorded Fluticasone/Salmeter 250/50Mcg 1 puffs IH BID 04/19/17 [Advair 250/50 (*)] Albuterol [Proventil Inhaler HFA 1 - 2 puffs IH Q4H PRN #1 mdi 07/03/17 (*)] Clotrimazole/Betamet Diprop 1 naida TP BID #15 cream 07/03/17 [Lotrisone Cream (*)] Fluticasone/Salmeter 250/50Mcg 1 puffs IH BID #1 disk 07/03/17 [Advair 250/50 (*)] Nicotine [Nicoderm Cq 14 mg (*)] 14 mg TD DAILY #14 patch 07/03/17 Thiamine HCl [Vitamin B-1] 100 mg PO DAILY #30 tab 07/03/17 Tiotropium Inhaler [Spiriva 18 mcg IH DAILY #1 mdi 07/03/17 Handihaler] Medical Decision Making - Diagnostics Imaging Results: Imaging Impressions Chest X-Ray 11/23/17 23:13 Impression: COPD with old post-traumatic changes to the right hemithorax, and small asymmetric opacities which have developed in the lateral right midlung and at the lateral left lung base compared to the September study. Recommendation: Short-term repeat chest radiography in 4-6 weeks to assure resolution. If these do not resolve, chest CT reevaluation could be considered. Findings and recommendations were discussed with Remy Pollard MD at 23:34, on 11/23/2017. - Data Points Laboratory Results: Laboratory Results 11/23/17 23:30 11/23/17 23:30 11/23/17 11/23/17 23:30 23:30 WBC 8.78 10^3/uL 10^3/uL (3.80-9.50) RBC 4.36 10^6/uL L 10^6/uL (4.40-6.38) Hgb 16.2 g/dL g/dL (13.7-17.5) Hct 47.2 % % (40.0-51.0) MCV 108.3 fL H fL (81.5-99.8) MCH 37.2 pg H pg (27.9-34.1) MCHC 34.3 g/dL g/dL (32.4-36.7) RDW 12.5 % % (11.5-15.2) Plt Count 366 10^3/uL 10^3/uL (150-400) MPV 9.7 fL fL (8.7-11.7) Neut % (Auto) 39.3 % % (39.3-74.2) Lymph % (Auto) 45.2 % H % (15.0-45.0) [place] % (Auto) 10.8 % % (4.5-13.0) Eos % (Auto) 1.9 % % (0.6-7.6) Baso % (Auto) 2.2 % H % (0.3-1.7) Nucleat RBC Rel Count 0.0 % % (0.0-0.2) Absolute Neuts (auto) 3.45 10^3/uL 10^3/uL (1.70-6.50) Absolute Lymphs (auto) 3.97 10^3/uL H 10^3/uL (1.00-3.00) Absolute Monos (auto) 0.95 10^3/uL H 10^3/uL (0.30-0.80) Absolute Eos (auto) 0.17 10^3/uL 10^3/uL (0.03-0.40) Absolute Basos (auto) 0.19 10^3/uL H 10^3/uL (0.02-0.10) Absolute Nucleated RBC 0.00 10^3/uL 10^3/uL (0-0.01) Immature Gran % 0.6 % % (0.0-1.1) Immature Gran # 0.05 10^3/uL 10^3/uL (0.00-0.10) Sodium 145 mEq/L mEq/L (135-145) Potassium 4.2 mEq/L mEq/L (3.3-5.0) Chloride 104 mEq/L mEq/L (97-110) Carbon Dioxide 28 mEq/l mEq/l (22-31) Anion Gap 13 mEq/L mEq/L (8-16) BUN 8 mg/dL mg/dL (7-23) Creatinine 0.7 mg/dL mg/dL (0.7-1.3) Estimated GFR > 60 Glucose 86 mg/dL mg/dL (70-100) Calcium 8.9 mg/dL mg/dL (8.5-10.4) Magnesium 1.8 mg/dL mg/dL (1.6-2.3) Total Bilirubin 0.5 mg/dL mg/dL (0.1-1.4) Conjugated Bilirubin 0.4 mg/dL mg/dL (0.0-0.5) Unconjugated Bilirubin 0.1 mg/dL mg/dL (0.0-1.1) AST 62 IU/L H IU/L (17-59) ALT 51 IU/L IU/L (21-72) Alkaline Phosphatase 143 IU/L H IU/L (38-126) NT-Pro-B Natriuret Pep 64 pg/mL pg/mL (0-125) Total Protein 7.0 g/dL g/dL (6.3-8.2) Albumin 4.0 g/dL g/dL (3.5-5.0) Ethyl Alcohol 307 mg/dL H mg/dL (0-10) Medications Given: Discontinued Medications Albuterol/Ipratropium (Duoneb) 3 ml IH EDNOW ONE Stop: 11/23/17 23:15 Last Admin: 11/23/17 23:49 Dose: 3 ml Sodium Chloride (Ns) 1,000 mls @ 0 mls/hr IV EDNOW ONE; Wide Open PRN Reason: Protocol Stop: 11/23/17 23:14 Last Admin: 11/23/17 23:49 Dose: 1,000 mls Levofloxacin/Dextrose (Levaquin 750 Mg (Premix)) 150 mls @ 100 mls/hr IV EDNOW ONE PRN Reason: Protocol Stop: 11/24/17 01:18 Last Admin: 11/24/17 00:04 Dose: 150 mls Methylprednisolone Sodium Succinate (Solu-Medrol) 125 mg IVP EDNOW ONE Stop: 11/23/17 23:15 Last Admin: 11/23/17 23:49 Dose: 125 mg Departure - Departure Disposition: Against Medical Advice Clinical Impression: Pneumonia Qualifiers: Pneumonia type: due to unspecified organism Laterality: unspecified laterality Lung location: unspecified part of lung Qualified Code(s): J18.9 - Pneumonia, unspecified organism COPD (chronic obstructive pulmonary disease) Qualifiers: COPD type: unspecified COPD Qualified Code(s): J44.9 - Chronic obstructive pulmonary disease, unspecified Condition: Good Referrals: NONE *PRIMARY CARE P,. [Primary Care Provider] - As per Instructions
[2017-11-23 23:36] VITALS: BP 118/80
[2017-11-23 23:43] LABS: PLATELET COUNT 366 10^3/uL (150-400)
--- NOTE | 2017-11-25 05:47 | CPEKG ---
Test Reason : OPEN Blood Pressure : / mmHG Vent. Rate : 102 BPM Atrial Rate : 102 BPM P-R Int : 195 ms QRS Dur : 092 ms QT Int : 349 ms P-R-T Axes : 073 032 071 degrees QTc Int : 455 ms Sinus tachycardia Ventricular premature complex Aberrant conduction of SV complex(es) Probable left atrial enlargement Confirmed by Remy Pollard ([id number]) on 11/25/2017 5:47:03 AM Referred By: Confirmed By:Remy Pollard
== END 2017-11-24 01:33 | disposition left against medical advice (07) ==
LOC: EDUNIT#
DX: J18.9 Pneumonia, unspecified organism (principal); F10.129 Alcohol abuse with intoxication, unspecified; J44.9 Chronic obstructive pulmonary disease, unspecified; Z72.0 Tobacco use; Z59.0 Homelessness; Y90.8 Blood alcohol level of 240 mg/100 ml or more; E86.9 Volume depletion, unspecified
CPT/HCPCS: 96365; G0480; J1956; J2930

== ENCOUNTER 2017-12-17 12:29 | Emergency (ER) | payer MEDICAID ==
[2017-12-17] MEDS ORDERED: FOLIC ACID 1 MG TAB PO ONE (13:28)
[2017-12-17] MEDS ORDERED: LORazepam 2 MG/ML INJ IVP ONE (13:28)
[2017-12-17] MEDS ORDERED: THIAMINE HCL 100 MG TAB PO ONE (13:28)
[2017-12-17] MEDS ORDERED: NS 1,000 ML IV ONE (13:28)
--- NOTE | 2017-12-17 13:34 | EDPHY ---
H & P Stated Complaint: ETOH W/D Time Seen by Provider: 12/17/17 13:24 HPI/ROS: CHIEF COMPLAINT: "I am withdrawing" HISTORY OF PRESENT ILLNESS: 52 year old male arrives via ambulance for suspected acute alcohol withdrawal. Patient has a history of COPD, chronic oxygen dependence 4 L/hr, 1/2 daily tobacco use, states that he would like to quit alcohol use and remain sober. Last drink of alcohol was last night. He denies: Chest pain, dyspnea, hallucination, seizure REVIEW OF SYSTEMS: 10 systems reviewed and negative with the exception of the elements mentioned in the history of present illness PAST MEDICAL/SURGICAL HISTORY: no anticoagulant use, COPD. 4 L oxygen dependent SOCIAL HISTORY: Positive for witnessed and self disclosed alcohol use PHYSICAL EXAM 1) GENERAL: poorly kept, alert and oriented. Appears to be in no acute distress. Answering questions appropriately.. Tremulous 2) HEAD: Normocephalic, atraumatic 3) HEENT: Pupils equal, round, reactive to light bilaterally. Negative [place]. Nasopharynx, oropharynx, clear. 4) NECK: No cervical collar is on. Posterior cervical spine is nontender, no stepoff, no effusion. Full range of motion which does not elicit any midline cervical spine pain, no posterior midline tenderness, no step-off. 5) LUNGS: Clear to auscultation bilaterally, no wheezes, no rhonchi, no retractions.. 6) HEART: [Regular rate and rhythm, 7) ABDOMEN: No guarding, no rebound, no focal tenderness, no peritoneal signs, no signs of trauma, no ecchymosis 8) MUSCULOSKELETAL: Moving all extremities, no focal areas of tenderness, no obvious trauma. 9) BACK: No midline vertebral tenderness, no fluctuance, no step-off, no obvious trauma, no visual or palpable abnormality. 10) SKIN: No laceration. No abrasion DIFFERENTIAL DIAGNOSIS: In no particular orderincluding but not limited to hypoglycemia, infectious process, electrolyte abnormality, head injury and intoxicants. - Personal History Current Tetanus Diphtheria and Acellular Pertussis (TDAP): Yes - Medical/Surgical History Hx Asthma: No Hx Chronic Respiratory Disease: No Hx Diabetes: No Hx Cardiac Disease: No Hx Renal Disease: No Hx Cirrhosis: No Hx Alcoholism: Yes Hx HIV/AIDS: No Hx Splenectomy or Spleen Trauma: No Other PMH: Anxiety, COPD, ETOH abuse, withdrawl seizures - Social History Smoking Status: Heavy smoker Constitutional: Initial Vital Signs Temperature (C) 37.2 C 12/17/17 13:01 Heart Rate 90 12/17/17 13:01 Respiratory Rate 16 12/17/17 13:01 Blood Pressure 123/85 H 12/17/17 13:01 O2 Sat (%) 96 12/17/17 13:01 O2 Delivery Mode Nasal Cannula O2 (L/minute) 4 Allergies/Adverse Reactions: No Known Allergies Allergy (Verified 11/23/17 23:37) Home Medications: Medication Instructions Recorded Fluticasone/Salmeter 250/50Mcg 1 puffs IH BID 04/19/17 [Advair 250/50 (*)] Albuterol [Proventil Inhaler HFA 1 - 2 puffs IH Q4H PRN #1 mdi 07/03/17 (*)] Clotrimazole/Betamet Diprop 1 naida TP BID #15 cream 07/03/17 [Lotrisone Cream (*)] Fluticasone/Salmeter 250/50Mcg 1 puffs IH BID #1 disk 07/03/17 [Advair 250/50 (*)] Nicotine [Nicoderm Cq 14 mg (*)] 14 mg TD DAILY #14 patch 07/03/17 Thiamine HCl [Vitamin B-1] 100 mg PO DAILY #30 tab 07/03/17 Tiotropium Inhaler [Spiriva 18 mcg IH DAILY #1 mdi 07/03/17 Handihaler] Medical Decision Making ED Course/Re-evaluation: 1:30 p.m.: Patient would like to remain sober from alcohol. His oxygen tank was empty. He is on chronic 4 L home oxygen. The porter sample case will consult. He is tremulous. Will administer IV Ativan IV fluids as well as thiamine and folate. I saw this patient independently based on established practice protocols. Care of patient under supervision of secondary supervising physician Dr Hill with whom I discussed case. 2:20 p.m.: Informed at this time that [place] police patrol officer Ted is bringing oxygen for the patient and will l [facility] with prepack of Librium from the ER. - Data Points Medications Given: Discontinued Medications Folic Acid (Folic Acid) 1 mg PO EDNOW ONE Stop: 12/17/17 13:29 Last Admin: 12/17/17 14:00 Dose: 1 mg Sodium Chloride (Ns) 1,000 mls @ 0 mls/hr IV ONCE ONE PRN Reason: Wide Open Stop: 12/17/17 13:29 Last Admin: 12/17/17 14:00 Dose: 1,000 mls Lorazepam (Ativan Injection) 2 mg IVP EDNOW ONE Stop: 12/17/17 13:29 Last Admin: 12/17/17 14:00 Dose: 2 mg Thiamine HCl (Vitamin B-1) 100 mg PO EDNOW ONE Stop: 12/17/17 13:29 Last Admin: 12/17/17 14:00 Dose: 100 mg Departure - Departure Disposition: Home, Routine, Self-Care Clinical Impression: Alcohol withdrawal Qualifiers: Complication of substance-induced condition: uncomplicated Qualified Code(s): F10.230 - Alcohol dependence with withdrawal, uncomplicated Condition: Good Instructions: Chlordiazepoxide (By mouth), Alcohol Withdrawal (ED) Referrals: Gaby Torre MD [Primary Care Provider] - 1-2 days without fail
[2017-12-17] MEDS ORDERED: CHLORDIAZEPOXIDE 25MG PREPK#6 BTL TAKEHOME ONE (14:22)
[2017-12-17 14:54] VITALS: BP 137/91
== END 2017-12-17 14:53 | disposition home or self-care (01) ==
LOC: EDUNIT#
DX: F10.239 Alcohol dependence with withdrawal, unspecified (principal); F17.200 Nicotine dependence, unspecified, uncomplicated
CPT/HCPCS: 96374; J2060

== ENCOUNTER 2018-03-25 04:40 | Emergency (ER) | payer MEDICAID, OTHER ==
[2018-03-25] MEDS ORDERED: NS 1,000 ML IV ONE ×2 (04:44→05:09)
[2018-03-25] MEDS ORDERED: fentaNYL 100 MCG/2 ML INJ ONE (04:48)
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
[2018-03-25] MEDS ORDERED: fentaNYL 100 MCG/2 ML INJ IVP ONE (04:50)
[2018-03-25 04:58] LABS: PLATELET COUNT 292 10^3/uL (150-400)
[2018-03-25] MEDS ORDERED: ONDANSETRON 4 MG/2 ML VIAL IVP ONE (06:16)
[2018-03-25] MEDS ORDERED: IPRATROPIUM/ALBUTEROL 3 ML DEYVIAL IH ONE (06:50)
[2018-03-25] MEDS ORDERED: chlordiazePOXIDE 25 MG CAP PO ONE (09:49)
[2018-03-25] MEDS ORDERED: chlordiazePOXIDE 25 MG CAP ONE (09:50)
[2018-03-25 12:06] VITALS: BP 113/78
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
== END 2018-03-25 12:06 | disposition home or self-care (01) ==
LOC: EDUNIT#
DX: T20.20XA Burn of second degree of head, face, and neck, unspecified site, initial encounter (principal); Z99.81 Dependence on supplemental oxygen; X04.XXXA Exposure to ignition of highly flammable material, initial encounter; Y92.9 Unspecified place or not applicable; Y93.9 Activity, unspecified; Y99.9 Unspecified external cause status
CPT/HCPCS: 96374; J2405; J3010

== ENCOUNTER 2018-05-14 19:42 | Inpatient (IN) | payer MEDICAID ==
[2018-05-14] MEDS ORDERED: IPRATROPIUM/ALBUTEROL 3 ML DEYVIAL IH ONE ×2 (19:51→20:59)
[2018-05-14] MEDS ORDERED: MAGNESIUM SULF 2 GM/WATER 50 ML BAG IV ONE (19:58)
[2018-05-14] MEDS ORDERED: MAGNESIUM SULF 2 GM/WATER 50 ML IV ONE (20:02)
[2018-05-14] MEDS ORDERED: ALBUTEROL 3 ML DEYVIAL IH ONE (20:06)
[2018-05-14] MEDS ORDERED: NS 500 ML IV ONE (20:06)
[2018-05-14 20:16] LABS: PLATELET COUNT 227 10^3/uL (150-400)
--- NOTE | 2018-05-14 20:21 | EDPHY ---
H & P Time Seen by Provider: 05/14/18 19:50 HPI/ROS: HPI Shortness of breath. COPD exacerbation. 53-year-old male with history of COPD. Noncompliant with his medications. Call EMS secondary to shortness of breath and difficulty breathing onset earlier today but worsening throughout the day. EMS reports initial room air pulse oximetries in the upper 70s. The patient was placed on CPAP. IV was established. He was given 2 duo nebs through CPAP and 125 mg of IV Solu- Medrol. He respond to this therapy very well. He went from 1 word dyspneic answers to questions to talking in full sentences. He reports that he has had on and off cough productive of a clear sputum for the last 1-2 weeks. ROS: Constitutional: No fever, no chills. No weakness. Eyes: No discharge. No changes in vision. ENT: No sore throat. No nasal congestion or rhinorrhea. Respiratory: As above. Cardiac: No chest pain, no palpitations. Gastrointestinal: No abdominal pain, no vomiting, no diarrhea. Genitourinary: No hematuria. No dysuria or increased frequency with urination. Musculoskeletal: No back pain. No neck pain. No myalgias or arthralgias. Skin: No rashes. Neurological: No headache. No focal weakness or altered sensation. Past medical history: Anxiety, COPD, alcohol abuse, alcohol withdrawal seizures. Social history: Heavy smoker. Lives alone. As above. Physical Exam: General Appearance: Alert, CPAP in place. This patient is responding to questions appropriately and in full sentences. This patient appears generally well-hydrated and well-nourished. Eyes: Pupils equal and round no pallor or injection. No lid edema, erythema or injection. Respiratory: He has mild retractions, diminished air movement in all dawn bilaterally. Scant wheezing throughout. Respiratory rate of 20. Cardiovascular: Regular rate and rhythm. No murmur. No JVD. Gastrointestinal: Abdomen is soft and nontender, no masses, bowel sounds normal. No focal tenderness at McBurney's point. No Duran sign. Neurological: Motor sensory function is grossly intact. Cranial nerves are normal. Gait is normal. Skin: Warm and dry, no rashes. Musculoskeletal: Neck is supple and nontender. Extremities are symmetrical. All joints range without pain or impingement. Psychiatric: No agitation. No depression. Database: EKG: EKG time is 8:17 p.m.; EKG shows a narrow complex sinus tachycardia with ventricular rate of 131. The [place], QRS, QT intervals are within normal limits. There are no ST-T wave changes indicative of ischemic or injury pattern. No evidence of right heart strain. Interpreted by me. Imaging: Chest x-ray AP portable: Increased interstitial markings suggestive of a pneumonitis verses possible pulmonary edema. Bibasilar atelectasis noted. Pneumonia unlikely. Interpreted by me. Procedures: Emergency department course: Triage vital signs reviewed. Patient tachycardic. He is afebrile. Blood pressure is unremarkable. Pulse oximetry is 99-100% on CPAP as above. He was given an additional 2 albuterol/Atrovent nebulizers. This was followed by a 9 mL continuous albuterol nebulizer through CPAP. He was given 2 g of IV magnesium. He received 125 mg of IV Solu-Medrol in the field. EKG and chest x- ray to be obtained. 8:50 p.m., the patient was re-evaluated, he is comfortable at this time. He continues to be on CPAP. His 9 mL continuous albuterol nebs to be started shortly. Pulse oximetry currently 99%. salvage engineer shows a narrow complex sinus tachycardia rate of 110. I discussed plan for admission. Hospitalist paged. 8:55 p.m., spoke with on-call hospitalist, Dr. Dante Posada, case discussed with her. She evaluated this patient with me in the emergency department. She accepts this patient for admission to the step-down unit. The patient's remaining emergency department course under my care has been uneventful. The patient was admitted in stable condition to the step-down unit. Differential Diagnosis: The differential diagnosis on this patient includes but is not limited to COPD exacerbation, pneumonitis. Congestive heart failure, pulmonary embolism, acute coronary syndrome unlikely. This represents a partial list of diagnoses considered. These considerations are based on history, physical exam, past history, reassessment and diagnostic testing. Smoking Status: Heavy smoker Constitutional: Initial Vital Signs Heart Rate 134 H 05/14/18 19:46 Respiratory Rate 20 05/14/18 19:46 Blood Pressure 126/95 H 05/14/18 19:46 O2 Sat (%) 99 05/14/18 19:46 O2 Delivery Mode Bi-Pap Allergies/Adverse Reactions: No Known Allergies Allergy (Verified 05/14/18 19:50) Home Medications: Medication Instructions Recorded Albuterol [Proventil Inhaler HFA 1 - 2 puffs IH Q4H PRN #1 mdi 07/03/17 (*)] Fluticasone/Salmeter 250/50Mcg 1 puffs IH BID #1 disk 07/03/17 [Advair 250/50 (*)] Tiotropium Inhaler [Spiriva 18 mcg IH DAILY #1 mdi 07/03/17 Handihaler] Medical Decision Making - Data Points Laboratory Results: Laboratory Results 05/14/18 19:45 05/14/18 19:45 Medications Given: Discontinued Medications Hydrocodone Bitart/Acetaminophen ([place] 5/325) 1 - 2 tab PO Q4HRS PRN PRN Reason: Pain, Moderate Able to Take PO Stop: 05/24/18 20:56 Last Admin: 05/15/18 11:41 Dose: 2 tab Albuterol (Proventil Neb) 9 ml IH EDNOW ONE Stop: 05/14/18 20:07 Last Admin: 05/14/18 20:11 Dose: 9 ml Albuterol/Ipratropium (Duoneb) 6 ml IH EDNOW ONE Stop: 05/14/18 19:52 Last Admin: 05/14/18 20:06 Dose: 6 ml Albuterol/Ipratropium (Duoneb) 15 ml IH EDNOW ONE Stop: 05/14/18 21:00 Last Admin: 05/14/18 21:59 Dose: Not Given Albuterol/Ipratropium (Duoneb) 3 ml IH QID [facility] Stop: 11/10/18 20:59 Last Admin: 05/16/18 20:05 Dose: 3 ml Chlordiazepoxide HCl (Librium) 25 mg PO ONCE ONE Stop: 05/15/18 10:52 Last Admin: 05/15/18 11:42 Dose: 25 mg Chlordiazepoxide HCl (Librium) 25 mg PO TID PRN PRN Reason: Anxiety, Able to Take PO Stop: 11/11/18 13:57 Last Admin: 05/16/18 09:14 Dose: 25 mg Chlordiazepoxide HCl (Librium) 25 mg PO TID [facility]SON Stop: 11/12/18 15:59 Last Admin: 05/16/18 16:07 Dose: 25 mg Enoxaparin Sodium (Lovenox) 40 mg SC DAILY [facility]INSON Stop: 11/11/18 08:59 Last Admin: 05/16/18 09:14 Dose: 40 mg Ethyl Alcohol (Vodka) 50 ml PO 5XD [facility]INSON Stop: 11/11/18 10:59 Last Admin: 05/16/18 09:43 Dose: 50 ml Ethyl Alcohol (Vodka) 100 ml PO 5XD [facility]INSON Stop: 11/11/18 10:59 Last Admin: 05/16/18 18:20 Dose: 100 ml Famotidine (Pepcid) 20 mg PO BID [facility] Stop: 11/10/18 20:59 Last Admin: 05/16/18 20:00 Dose: 20 mg Folic Acid (Folic Acid) 1 mg PO DAILY [facility]INSON Stop: 11/11/18 08:59 Last Admin: 05/16/18 09:14 Dose: 1 mg Magnesium Sulfate (Magnesium Sulf 2 Gm (Premix)) 50 mls @ 50 mls/hr IV EDNOW ONE Stop: 05/14/18 21:01 Last Admin: 05/14/18 20:03 Dose: 50 mls Sodium Chloride (Ns) 500 mls @ 1,000 mls/hr IV EDNOW ONE PRN Reason: Protocol Stop: 05/14/18 20:35 Last Admin: 05/14/18 20:10 Dose: 500 mls Sodium Chloride (Ns) 1,000 mls @ 150 mls/hr IV CONT [facility] Stop: 11/10/18 20:59 Last Admin: 05/16/18 09:13 Dose: 1,000 mls Thiamine HCl 500 mg/ Sodium (Chloride) 105 mls @ 210 mls/hr IV DAILY [facility] Stop: 05/18/18 08:59 Last Admin: 05/16/18 09:13 Dose: 105 mls Levofloxacin/Dextrose (Levaquin 750 Mg (Premix)) 150 mls @ 100 mls/hr IV Q24H [facility] PRN Reason: Protocol Stop: 06/13/18 22:59 Last Admin: 05/15/18 23:41 Dose: 150 mls Levofloxacin (Levaquin) 750 mg PO DAILY AT 10AM [facility] PRN Reason: Protocol Stop: 06/15/18 10:44 Last Admin: 05/16/18 11:47 Dose: 750 mg Lorazepam (Ativan Injection) 0 mg IVP Q1H PRN; Protocol PRN Reason: Alcohol Withdrawal w/IV access Stop: 11/10/18 20:58 Last Admin: 05/16/18 19:59 Dose: 2 mg Methylprednisolone Sodium Succinate (Solu-Medrol) 125 mg IVP Q6H [facility] Stop: 05/15/18 04:01 Last Admin: 05/15/18 06:35 Dose: Not Given Methylprednisolone Sodium Succinate (Solu-Medrol) 125 mg IVP Q6H [facility]INSON Stop: 05/15/18 06:31 Last Admin: 05/15/18 06:38 Dose: 125 mg Multivitamins (Tab-A-Arcadio) 1 each PO DAILY EDINSON Stop: 11/11/18 08:59 Last Admin: 05/16/18 09:14 Dose: 1 each Nicotine (Nicoderm Cq) 21 mg TD DAILY PRN PRN Reason: Smoking Cessation Stop: 11/10/18 20:58 Last Admin: 05/16/18 10:59 Dose: 21 mg Prednisone (Prednisone) 60 mg PO DAILY EDINSON Stop: 11/11/18 08:59 Last Admin: 05/16/18 09:13 Dose: 60 mg Fluticasone/Salmeterol (Advair) 1 puffs IH BID [facility]INSON Stop: 11/11/18 08:59 Last Admin: 05/16/18 20:05 Dose: 1 puffs Point of Care Test Results: Chemistry 05/14/18 20:20 POC Troponin I 0.01 ng/mL ng/mL (0.00-0.08) Departure - Departure Disposition: [facility] Acute Clinical Impression: Chronic obstructive pulmonary disease with acute exacerbation Condition: Fair
[2018-05-14] MEDS ORDERED: ACETAMINOPHEN 325 MG TAB PO PRN (20:57)
[2018-05-14] MEDS ORDERED: ONDANSETRON 4 MG/2 ML VIAL IVP PRN (20:57)
[2018-05-14] MEDS ORDERED: ONDANSETRON DISINTEGRATING 4 MG TAB PO PRN (20:57)
[2018-05-14] MEDS ORDERED: HYDROCODONE/APAP 5/325 TAB PO PRN (20:57)
[2018-05-14] MEDS ORDERED: HYDROmorphONE/DILAUDID 1 MG/ML INJ IVP PRN (20:57)
[2018-05-14] MEDS ORDERED: oxyCODONE IR 5 MG TAB PO PRN (20:57)
[2018-05-14] MEDS ORDERED: ALBUTEROL 3 ML DEYVIAL IH PRN (20:57)
[2018-05-14] MEDS ORDERED: PROMETHAZINE HCL 25 MG/ML INJ IVP PRN (20:57)
[2018-05-14] MEDS ORDERED: MAG HYDROX/AL HYDROX/SIMETH 30 ML UDCUP PO PRN (20:59)
[2018-05-14] MEDS ORDERED: FLUMAZENIL 0.5 MG/5 ML MDV IVP PRN (20:59)
--- NOTE | 2018-05-14 21:06 | CPEKG ---
Test Reason : OPEN Blood Pressure : / mmHG Vent. Rate : 131 BPM Atrial Rate : 132 BPM P-R Int : 143 ms QRS Dur : 094 ms QT Int : 302 ms P-R-T Axes : 076 019 082 degrees QTc Int : 446 ms Sinus tachycardia Confirmed by Bret De La O ([id number] on 05/14/2018 9:05:34 PM Referred By: Bret De La O Confirmed By:Bret De La O
[2018-05-14] MEDS: IPRATROPIUM/ALBUTEROL 3 ML DEYVIAL IH SCH (22:17)
[2018-05-14] MEDS: FAMOTIDINE 20 MG TAB PO SCH (22:24)
[2018-05-14] MEDS: methylPREDNISolone SOD SUCC 125 MG/2 ML VIAL IVP SCH (22:24)
[2018-05-14] MEDS: LORazepam 2 MG/ML INJ IVP PRN (22:24)
[2018-05-14] MEDS: NS 1,000 ML IV SCH (22:27)
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
[2018-05-15] MEDS: LORazepam 2 MG/ML INJ IVP PRN ×7 (02:26→21:34)
[2018-05-15] MEDS: IPRATROPIUM/ALBUTEROL 3 ML DEYVIAL IH SCH ×4 (05:13→20:06)
[2018-05-15] MEDS ORDERED: methylPREDNISolone SOD SUCC 125 MG/2 ML VIAL IVP SCH (06:30)
[2018-05-15] MEDS: methylPREDNISolone SOD SUCC 125 MG/2 ML VIAL IVP SCH (06:35)
[2018-05-15] MEDS: THIAMINE HCL 500 MG in NS 100 ML IV SCH (08:16)
[2018-05-15] MEDS: FOLIC ACID 1 MG TAB PO SCH (08:58)
[2018-05-15] MEDS: FAMOTIDINE 20 MG TAB PO SCH ×2 (08:58→21:35)
[2018-05-15] MEDS: MULTIVITAMINS 1 EACH TAB PO SCH (08:59)
[2018-05-15] MEDS: predniSONE 20 MG TAB PO SCH (08:59)
[2018-05-15] MEDS: ENOXAPARIN 40 MG/0.4 ML SYR SC SCH (08:59)
[2018-05-15] MEDS: NICOTINE 21 MG/24 HR PATCH TD PRN (08:59)
[2018-05-15] MEDS: FLUTICASONE/SALMETER 250/50MCG DISKUS IH SCH ×3 (09:51→20:06)
[2018-05-15] MEDS ORDERED: chlordiazePOXIDE 25 MG CAP PO ONE (10:51)
[2018-05-15] MEDS ORDERED: VODKA 50 ML BOTTLE ONE (10:55)
--- NOTE | 2018-05-15 11:19 | PDMN ---
Medical Necessity Medical necessity: Pt meets IP criteria per MD & MCG M-160; est los >2 mn for eval/tx of sepsis w/tachycardia, elevated wbc & metabolic encephalopathy in the setting of presumed pneumonia & COPD exacerbation w/severe respiratory distress (found cyanotic with O2 in the 70s); requiring further workup/close ICU monitoring, bipap, CIWA protocol, IV abx & aggressive IVFs (150 mls/hr); hx alcoholism; per H&P & order 05/14/18
[2018-05-15] MEDS: VODKA 50 ML BOTTLE PO SCH ×4 (11:35→23:25)
[2018-05-15] MEDS: NS 1,000 ML IV SCH (12:51)
[2018-05-15] MEDS ORDERED: chlordiazePOXIDE 25 MG CAP PO PRN (13:58)
--- NOTE | 2018-05-15 14:03 | HOSPPROG ---
Hospitalist Progress Note Assessment/Plan: 53 yo M w copd and alcohol dependence here w parainfluenza, likely 2/2 bacterial pneumonia alcohol dependence: quite tremulous but neither tachycardic nor confused scheduled librium and vodka 5X daily ?CAP: cxr noted- reasonable to treat as secondary pneumonia continue levaquin parainfluenza: supportive care pred and nebs AHRF: on chronic 2/2 copd plus viral and bacterial infectioon proph: lmwh dispo: inpt, icu Subjective: case d/w dr low. cxr w bibasilar infiltrates (interp by me) Objective: Vital Signs Temp Pulse Resp BP Pulse Ox 36.9 C 104 H 21 H 134/86 H 98 05/15/18 11:52 05/15/18 11:52 05/15/18 11:52 05/15/18 11:52 05/15/18 11:52 Microbiology 05/15/18 00:05 Respiratory Panel (PCR) - Final Nasal, Sinus - [place] Viral Transport Parainfluenza Virus Type 3 Laboratory Results 05/15/18 04:25 05/14/18 05/15/18 05/16/18 05:59 05:59 05:59 Intake Total 2175 Output Total 600 700 Balance 1575 -700 - Physical Exam Constitutional: other (tremulous) Eyes: PERRL Ears, Nose, Mouth, Throat: moist mucous membranes, hearing normal Cardiovascular: regular rate and rhythym, no murmur, rub, or gallop Respiratory: other (decreased air movement, wheezes, basilar crackles) Gastrointestinal: normoactive bowel sounds, soft, non-tender abdomen Genitourinary: No dempsey in urethra Skin: warm, normal color Musculoskeletal: full muscle strength, no muscle tenderness Neurologic: AAOx3 ICD10 Worksheet Patient Problems: Problems Problem Status Onset Chronic obstructive pulmonary disease with acute exacerbation Acute Alcohol withdrawal Acute Alcoholic ketoacidosis Acute COPD exacerbation Acute Conjunctivitis Acute Hypothermia Acute Hypoxia Acute Multiple rib fractures Acute
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
--- NOTE | 2018-05-15 16:07 | ASMTCMCOM ---
CM Note CM Note Notes: Met with patient to plan for dispo. Patient lives at home independently and states he has a friend that checks in on him often. He is a patient of Dr. Torre's at the [facility]. We discussed having some [facility] assistance upon d/c, patient is open to this and states Dr. Torre has already set this up. CM attempted to contact [facility] to confirm, unable to leave message. Will continue to attempt [facility] case manager for further info on prior treatment plan. Patient also wears O2 at baseline. Plan: TBD, possibly HHC. Date Signed: 05/15/2018 04:06 PM Electronically Signed By:Viviana Cervantes RN
[2018-05-16] MEDS: LORazepam 2 MG/ML INJ IVP PRN ×6 (02:07→19:59)
[2018-05-16] MEDS: IPRATROPIUM/ALBUTEROL 3 ML DEYVIAL IH SCH ×4 (05:04→20:05)
[2018-05-16 05:47] LABS: PLATELET COUNT 179 10^3/uL (150-400)
[2018-05-16] MEDS: VODKA 50 ML BOTTLE PO SCH ×4 (06:45→18:20)
[2018-05-16] MEDS: predniSONE 20 MG TAB PO SCH (09:13)
[2018-05-16] MEDS: NS 1,000 ML IV SCH (09:13)
[2018-05-16] MEDS: THIAMINE HCL 500 MG in NS 100 ML IV SCH (09:13)
[2018-05-16] MEDS: MULTIVITAMINS 1 EACH TAB PO SCH (09:14)
[2018-05-16] MEDS: FAMOTIDINE 20 MG TAB PO SCH ×2 (09:14→20:00)
[2018-05-16] MEDS: ENOXAPARIN 40 MG/0.4 ML SYR SC SCH (09:14)
[2018-05-16] MEDS: FOLIC ACID 1 MG TAB PO SCH (09:14)
[2018-05-16] MEDS: FLUTICASONE/SALMETER 250/50MCG DISKUS IH SCH ×2 (09:21→20:05)
[2018-05-16] MEDS: NICOTINE 21 MG/24 HR PATCH TD PRN (10:59)
--- NOTE | 2018-05-16 13:26 | HOSPPROG ---
Hospitalist Progress Note Assessment/Plan: 53 yo M w copd and alcohol dependence here w parainfluenza, likely 2/2 bacterial pneumonia alcohol dependence: quite tremulous but neither tachycardic nor confused scheduled librium and vodka 5X daily ?CAP: cxr noted- reasonable to treat as secondary pneumonia continue levaquin day 3/ parainfluenza: supportive care pred and nebs AHRF: on chronic 2/2 copd plus viral and bacterial infection proph: lmwh dispo: inpt, icu will have pt/ot see can downgrade to med surg Subjective: cxr w improved airspace diseaes (interp by me). case d/w dr low. less tremulous Objective: Vital Signs Temp Pulse Resp BP Pulse Ox 36.5 C 98 20 136/88 H 90 L 05/16/18 11:25 05/16/18 12:24 05/16/18 12:24 05/16/18 11:25 05/16/18 12:24 Microbiology 05/15/18 00:05 Respiratory Panel (PCR) - Final Nasal, Sinus - [place] Viral Transport Parainfluenza Virus Type 3 Laboratory Results 05/16/18 05:07 05/16/18 05:07 05/15/18 05/16/18 05/17/18 05:59 05:59 05:59 Intake Total 2175 4905 Output Total 600 2150 825 Balance 1575 2755 -825 - Physical Exam Constitutional: no apparent distress, appears nourished Eyes: PERRL, anicteric sclera Ears, Nose, Mouth, Throat: moist mucous membranes, hearing normal Cardiovascular: regular rate and rhythym, no murmur, rub, or gallop Respiratory: expiratory wheeze, inspiratory crackles, rhonchi Gastrointestinal: normoactive bowel sounds, soft, non-tender abdomen Genitourinary: no bladder fullness, No dempsey in urethra Skin: warm, normal color Musculoskeletal: No full muscle strength Neurologic: AAOx3 ICD10 Worksheet Patient Problems: Problems Problem Status Onset Chronic obstructive pulmonary disease with acute exacerbation Acute Alcohol withdrawal Acute Alcoholic ketoacidosis Acute COPD exacerbation Acute Conjunctivitis Acute Hypothermia Acute Hypoxia Acute Multiple rib fractures Acute
--- NOTE | 2018-05-16 15:55 | ASMTCMCOM ---
CM Note CM Note Notes: Met with patient to discuss dispo plans. 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 Maritza will be on vacation through . Spoke with her supervisor newspaper deliveries, Oren #[phone], who will be providing support in Maritza'a absence. Patient could benefit from some home health care f/u and he is open to this, Oren also feels that this is a good idea. Referral sent to Che at [facility], background on patient's hx given. Patient's address confirmed, his cell is #[phone]. Patient also sees Dr. Torre at [facility]. CM can contact Oren on d/c, he will provide transportation. Plan: [facility] RN, PT, OT Date Signed: 05/16/2018 03:54 PM Electronically Signed By:Viviana Cervantes RN
[2018-05-16] MEDS ORDERED: chlordiazePOXIDE 25 MG CAP PO SCH (16:00)
--- NOTE | 2018-05-16 16:00 | PDINTPN ---
Apprenticeship Training Representative Progress Note Assessment/Plan: Assessment: COPD exacerbation: Improved. On bronchodilator therapies, prednisone. Bronchitis: No evidence of significant pneumonia but a small infiltrate may be present. On Levaquin. Ongoing tobacco abuse Chronic alcoholism: On CIWA, vodka, Librium. Prophylaxis: On enoxaparin and famotidine. Metabolic: Hypophosphatemia, mild. Will follow.. Plan: Continue present care, bronchodilator therapies, antibiotics, CIWA protocol with vodka and Librium. Follow laboratory, chest x-ray intermittently. Can transition to medical-surgical status. Subjective: Awake, alert, responsive. Remains tremulous. No distress. Feels breathing is not at baseline, but better compared to admission. Objective: Vital Signs Temp Pulse Resp BP Pulse Ox 36.5 C 98 20 136/88 H 90 L 05/16/18 11:25 05/16/18 12:24 05/16/18 12:24 05/16/18 11:25 05/16/18 12:24 Laboratory Results 05/16/18 05:07 05/16/18 05:07 05/15/18 05/16/18 05/17/18 05:59 05:59 05:59 Intake Total 2175 4905 Output Total 600 2150 2650 Balance 1575 2755 -2650 Laboratory Tests 05/16/18 05:07 Magnesium 1.8 Total Bilirubin 0.5 AST 45 ALT 53 Albumin 3.2 L CXR: Improved aeration bilaterally. Basilar infiltrates/atelectasis significantly improved. No focal consolidation appears to be present. COPD/ emphysema present. Physical Exam - Physical Exam General Appearance: alert, no apparent distress, thin, other (Tremulous) EENT: PERRL/EOMI, other (Nasal cannula in place at 4 L) Neck: normal inspection (No JVD) Respiratory: decreased breath sounds (Bilaterally, very distant), rales (Few rales present at the bases. No definite consolidation), prolonged expiration, No lungs clear, No normal breath sounds, No respiratory distress, No rhonchi ( No central rhonchi present, some central congestion with cough) Cardiac/Chest: regular rate, rhythm, other (Distant heart tones. Increased P2) , No gallop Abdomen: normal bowel sounds, non-tender, soft Male Genitalia: other (No Lom[place], using urinal, good urine output) Skin: normal color, warm/dry Extremities: No pedal edema Neuro/Psych: no motor/sensory deficits, other (Tremor present), No cognition abnormalities ICD10 Worksheet Patient Problems: Problems Problem Status Onset Chronic obstructive pulmonary disease with acute exacerbation Acute Alcohol withdrawal Acute Alcoholic ketoacidosis Acute COPD exacerbation Acute Conjunctivitis Acute Hypothermia Acute Hypoxia Acute Multiple rib fractures Acute
[2018-05-16 19:59] VITALS: BP 128/85
[2018-05-17] MEDS ORDERED: NICOTINE 21 MG/24 HR PATCH TD SCH (09:00)
[2018-05-18] MEDS ORDERED: THIAMINE HCL 100 MG TAB PO SCH (09:00)
== END 2018-05-16 20:45 | disposition left against medical advice (07) | DRG 140 ==
LOC: EDUNIT# → OBSVTOIN 21:02 → F2N 21:43
PROVIDERS: ADMIT Internal Medicine; ATTEND Internal Medicine
DX: J44.1 Chronic obstructive pulmonary disease with (acute) exacerbation (principal); J96.21 Acute and chronic respiratory failure with hypoxia; J12.2 Parainfluenza virus pneumonia; G93.41 Metabolic encephalopathy; J44.0 Chronic obstructive pulmonary disease with (acute) lower respiratory infection; F10.239 Alcohol dependence with withdrawal, unspecified; E86.9 Volume depletion, unspecified; Z99.81 Dependence on supplemental oxygen; Z72.0 Tobacco use
CPT/HCPCS: 84484-ER; 96374; 97162-GP; 97166-GO; 97530-GP; 97535-GO; G0515-GO; J1650; J1956; J2060; J2930; J3411; J3475; J7512

== ENCOUNTER 2018-06-06 23:19 | Emergency (ER) | payer MEDICAID ==
[2018-06-06] MEDS ORDERED: OXYMETAZOLINE 30 ML NASAL SPRAY EACHNARE ONE (23:24)
--- NOTE | 2018-06-07 00:28 | EDPHY ---
H & P Stated Complaint: epistaxis Time Seen by Provider: 06/06/18 23:23 HPI/ROS: HPI The patient presents with epistaxis from both nares which began earlier tonight. The patient wears oxygen via nasal cannula 24 hr a day for his COPD. He ran out of distilled water which he usually uses to humidify the oxygen. He has never had epistaxis before. The bleeding is now stopped on its own. He is not on any anticoagulants. He does not have any shortness of breath. He is brought in by ambulance from his home. REVIEW OF SYSTEMS 10 systems were reviewed and negative with the exception of the elements mentioned in the history of present illness. PMHx: COPD Soc Hx: Chronic alcohol dependence, lives independently PHYSICAL General Appearance: Alert, no distress Eyes: Pupils equal and round no pallor or injection ENT, Mouth: No active bleeding from either naris, right naris with dried blood , I do not visualize source of bleeding, Mucous membranes moist Respiratory: There are no retractions, lungs are clear to auscultation Cardiovascular: Regular rate and rhythm Neurological: A&O, moves all extremities Skin: Warm and dry, no rashes Musculoskeletal: Neck is supple non tender Extremities: symmetrical, full range of motion Psychiatric: Patient is oriented X 3, there is no agitation Source: Patient, EMS Exam Limitations: No limitations - Medical/Surgical History Hx Asthma: No Hx Chronic Respiratory Disease: Yes Hx Diabetes: No Hx Cardiac Disease: No Hx Renal Disease: No Hx Cirrhosis: No Hx Alcoholism: Yes Hx HIV/AIDS: No Hx Splenectomy or Spleen Trauma: No Other PMH: Anxiety, COPD, ETOH abuse, withdrawl seizures - Social History Smoking Status: Heavy smoker Constitutional: Initial Vital Signs Temperature (C) 36.8 C 06/06/18 23:25 Heart Rate 106 H 06/06/18 23:25 Respiratory Rate 18 06/06/18 23:25 Blood Pressure 122/80 H 06/06/18 23:25 O2 Sat (%) 98 06/06/18 23:25 O2 Delivery Mode Nasal Cannula O2 (L/minute) 4 Allergies/Adverse Reactions: coconut Allergy (Verified 06/06/18 23:23) Home Medications: Medication Instructions Recorded Albuterol [Proventil Inhaler HFA 1 - 2 puffs IH Q4H PRN #1 mdi 07/03/17 (*)] Fluticasone/Salmeter 250/50Mcg 1 puffs IH BID #1 disk 07/03/17 [Advair 250/50 (*)] Tiotropium Inhaler [Spiriva 18 mcg IH DAILY #1 mdi 07/03/17 Handihaler] "Steriods For Lungs And Heart" 06/06/18 Ativan 06/06/18 Medical Decision Making Differential Diagnosis: 53-year-old man with COPD on home oxygen via nasal cannula presents with spontaneous epistaxis tonight. Bleeding had stopped upon arrival in the emergency department. He does report 1 blood clot from his right nose. He was treated here with Afrin and nasal clamps. On exam, I cannot localize source of bleeding. He is stable and suitable for discharge home. I have given him distilled water which he can use in his oxygen to prevent nasal dryness. He will be discharged with Afrin and nasal clamps as well as ENT referral. - Data Points Medications Given: Discontinued Medications Oxymetazoline HCl (Afrin Nasal [place]) 2 sprays EACHNARE EDNOW ONE Stop: 06/06/18 23:25 Last Admin: 06/06/18 23:35 Dose: 2 spr Departure - Departure Disposition: Home, Routine, Self-Care Clinical Impression: Acute anterior epistaxis Condition: Good Instructions: Nosebleed (ED) Additional Instructions: If your nose starts bleeding again, I recommend you blow it to remove any clots. Then you should use the Afrin, 2 sprays in each nostril. Then you should put the clamp on for 15 min straight. I have given you the information for the Ear Nose and Throat doctor if you would like to follow-up for further care. Referrals: Tanna Kauffman MD [Medical Doctor] - As per Instructions
[2018-06-07 00:43] VITALS: BP 127/89
== END 2018-06-07 00:56 | disposition home or self-care (01) ==
LOC: EDUNIT# → EDBD
DX: R04.0 Epistaxis (principal); J44.9 Chronic obstructive pulmonary disease, unspecified; F31.9 Bipolar disorder, unspecified; Z99.81 Dependence on supplemental oxygen

== ENCOUNTER 2018-06-11 10:13 | Emergency (ER) | payer MEDICAID ==
--- NOTE | 2018-06-11 10:53 | EDPHY ---
H & P Stated Complaint: for inpt. detox Time Seen by Provider: 06/11/18 10:38 HPI/ROS: CHIEF COMPLAINT: "I am here for detox from alcohol" HISTORY OF PRESENT ILLNESS: 53-year-old male history of alcohol abuse arrives via his classification case manager [facility] the [facility] to request inpatient detoxification from alcohol. He has previously been admitted to the hospital and left AMA however he states that he is now currently quite motivated to remain sober, like to go to [employer]. Last drink of alcohol was shortly prior to coming to the emergency department. He denies acute withdrawal symptoms but is concerned that he will develop the symptoms in a few hours. He has prior history of alcohol withdrawal seizure. No history of delirium tremens. He currently has no complaints of pain or discomfort. Specifically, he denies: Seizure, hallucination, nausea, vomiting, anxiety, abdominal pain. It was thought that the patient needed to go to an inpatient medical detoxification due to his COPD and oxygen dependence as the [facility] may not be able to treat the patient with his need for long-term oxygen. PRIMARY CARE PROVIDER: Dr. Gaby Torre [facility] REVIEW OF SYSTEMS: 10 systems reviewed and negative with the exception of the elements mentioned in the history of present illness PAST MEDICAL & SURGICAL HISTORY: COPD. Supplemental oxygen dependent. SOCIAL HISTORY: Positive for tobacco abuse. Positive for alcohol abuse. PHYSICAL EXAM (Prior to examination, patient consented to physical exam, hands were washed and my usual and customary physical exam procedures followed) 1) GENERAL: Awake, alert and oriented. Observed ambulating stable steady gait. Appears to be in no acute distress. 2) HEAD: Normocephalic, atraumatic 3) HEENT: Pupils equal, round, reactive to light bilaterally. Sclera anicteric. 4) NECK: Full range of motion, no meningeal signs. 5) LUNGS: Clear auscultation bilaterally, no wheezes, no rhonchi, no retractions. 6) HEART: Regular rate and rhythm, no murmur, no heave, no gallop. 7) ABDOMEN: No guarding, no rebound, no focal tenderness, 8) MUSCULOSKELETAL: Moving all extremities, no focal areas of tenderness, no obvious trauma. No peripheral edema or discoloration. 9) BACK: No CVA tenderness, no midline vertebral tenderness, no fluctuance, no step-off, no obvious trauma, no visual or palpable abnormality. 10) SKIN: No rash, no petechiae. 11) Psychiatric: Patient is oriented X 3, there is no agitation. DIFFERENTIAL DIAGNOSIS: In no particular order include but limited to acute alcohol abuse, alcohol withdrawal, alcohol withdrawal seizure - Personal History Current Tetanus/Diphtheria Vaccine: Yes Current Tetanus Diphtheria and Acellular Pertussis (TDAP): Yes - Medical/Surgical History Hx Asthma: No Hx Chronic Respiratory Disease: Yes Hx Diabetes: No Hx Cardiac Disease: Yes Hx Renal Disease: No Hx Cirrhosis: No Hx Alcoholism: Yes Hx HIV/AIDS: No Hx Splenectomy or Spleen Trauma: No Other PMH: Anxiety, COPD, ETOH abuse, withdrawl seizures, panic attacks, CHF - Social History Smoking Status: Heavy smoker Constitutional: Initial Vital Signs Temperature (C) 36.8 C 06/11/18 10:32 Heart Rate 129 H 06/11/18 10:32 Respiratory Rate 19 06/11/18 10:32 Blood Pressure 106/76 06/11/18 10:32 O2 Sat (%) 93 06/11/18 10:32 O2 Delivery Mode Nasal Cannula O2 (L/minute) 4 Allergies/Adverse Reactions: coconut Allergy (Verified 06/06/18 23:23) Home Medications: Medication Instructions Recorded Albuterol [Proventil Inhaler HFA 1 - 2 puffs IH Q4H PRN #1 mdi 07/03/17 (*)] Fluticasone/Salmeter 250/50Mcg 1 puffs IH BID #1 disk 07/03/17 [Advair 250/50 (*)] Tiotropium Inhaler [Spiriva 18 mcg IH DAILY #1 mdi 07/03/17 Handihaler] Medical Decision Making ED Course/Re-evaluation: 12:30 p.m.: The emergency department business case analyst work closely with this patient and with the [facility]. Of initial concern was whether the the patient's chronic oxygen use would preclude him from going to the [facility]. After discussions with the [facility] and with the patient's oxygen provider, the [facility] does agree to accept the patient and his oxygen provider will continue to provide oxygen delivery at the [facility]. He will therefore be discharged with prescription for Librium. He feels comfortable this plan. He is motivated to remain sober and would like to go to [employer]. Departure - Departure Disposition: Home, Routine, Self-Care Clinical Impression: Alcohol withdrawal Qualifiers: Complication of substance-induced condition: uncomplicated Qualified Code(s): F10.230 - Alcohol dependence with withdrawal, uncomplicated Condition: Good Instructions: Alcohol Withdrawal (ED), Chlordiazepoxide (By mouth) Referrals: [facility] [Outside] - 2-3 days, call for appt.
[2018-06-11] MEDS ORDERED: CHLORDIAZEPOXIDE 25MG PREPK#6 BTL TAKEHOME ONE (12:39)
[2018-06-11] MEDS ORDERED: LORazepam 1 MG TAB PO ONE (13:15)
[2018-06-11 13:57] VITALS: BP 110/74
--- NOTE | 2018-06-11 14:40 | ASMTCMCOM ---
CM Note CM Note Notes: Patient presents to the ED requesting medical detox. See ED report for details. Chart reviewed, including recent M and discharge summaries from 05/16/18. Patient is well known to this CM and the ED. Patient explains to this CM that his out of school hours care worker with the [facility], Maritza brought him to the ED because his PCP at [facility] suggested he present to the ED for a medical detox. Patient is currently alert, calm, cooperative and tells me that he had his last drink before arriving to the hospital. Patient is living in an apartment in [place] that the [facility] arranged fro him earlier in the year. This CM contacted Maritza to gather more information. Per Maritza, Dr. Torre has filled out the paperwork for [facility]behavioral program and is hoping that patient can get through detox and receive a Vivitrol injection to get him through until a bed is available at [facility]. Maritza and I discussed options for patient for detox and I explained that while we do not have a medical detox-and patient is not exhibiting signs of withdrawal at this time-patient would be eligible to seek voluntary detox at the [facility]. I have contacted the [facility], spoke with Julia, and expalined the situation. Patient is welcome to go to the [facility] with Librium for withdrawal management. Patient does have COPD and is O2 dependent. Julia ([facility]) confirms that patient must provide his own O2, but is okay to come if he can manage his own oxygen. I have discussed this with Maritza and arranged to have Bradley at [facility] bring an O2 tank to the ED prior to patient's discharge to the [facility]. Maritza has arrnged to have patient's concentrator picked up from his apartment and will bring this to the [facility] as well. Patient is in agreement with plan to discharge to the [facility] and understands that he will have the opportunity to discuss options for Vivitrol while he is there. Maritza has contacted Dr. torre to inform her of plan and patient is aware of this as well. PLAN: Discharge to the [facility] with Librium. O2 has been arranged as described above. Bradley from [facility] dropped off patient's O2 and confirmed with this CM that he will supply patient with his O2 at the [facility] until further notice. Date Signed: 06/11/2018 02:39 PM Electronically Signed By:Pamela Guthrie RN
== END 2018-06-11 13:57 | disposition home or self-care (01) ==
DX: F10.230 Alcohol dependence with withdrawal, uncomplicated (principal); J44.9 Chronic obstructive pulmonary disease, unspecified; I50.9 Heart failure, unspecified; F41.9 Anxiety disorder, unspecified; Z99.81 Dependence on supplemental oxygen